=== PATIENT | female | born 1950 | race American Indian/Alaskan Native ===

== ENCOUNTER 2019-11-21 | Inpatient (IN) | payer MEDICARE | END 2019-11-28 17:39 | DRG 689 | PROVIDERS: ADMIT Internal Medicine | DX: N39.0 Urinary tract infection, site not specified (principal); N17.0 Acute kidney failure with tubular necrosis; E66.2 Morbid (severe) obesity with alveolar hypoventilation; Z68.43 Body mass index [BMI] 50.0-59.9, adult; I12.9 Hypertensive chronic kidney disease with stage 1 through stage 4 chronic kidney disease, or unspecified chronic kidney disease; N18.9 Chronic kidney disease, unspecified; Z79.01 Long term (current) use of anticoagulants; Z96.649 Presence of unspecified artificial hip joint; Z82.49 Family history of ischemic heart disease and other diseases of the circulatory system; D64.9 Anemia, unspecified; I48.0 Paroxysmal atrial fibrillation ==

== ENCOUNTER 2020-01-11 15:30 | Emergency (ER) | payer MEDICARE ==
[2020-01-11 17:43] LABS: ABG Base Excess 3.7 mmol/L (-2.0-3.0); ABG HCO3 29.2 mmol/L (20.0-26.0); ABG Oxygen Saturation 99.3 % (95.0-99.0); ABG PCO2 49.8 mm Hg; ABG PH 7.386 pH Units (7.350-7.450); ABG PO2 204.8 mm Hg (80.0-90.0)
[2020-01-11 17:50] LABS: Basophils % (Auto) 0.7 % (0.0-1.8); Eosinophils # (Auto) 0.2 K/mm3 (0.0-0.4); Eosinophils % (Auto) 3.3 % (0.0-4.3); Hematocrit 28.8 % (30.3-42.9); Hemoglobin 9.1 gm/dl (10.1-14.3); Lymphocytes # (Auto) 1.5 K/mm3 (1.2-5.4); Lymphocytes % (Auto) 29.2 % (13.4-35.0); Mean Corpuscular HGB Conc 32 % (30-34); Mean Corpuscular Volume 84 fl (79-97); Monocytes # (Auto) 0.3 K/mm3 (0.0-0.8); Monocytes % (Auto) 5.1 % (0.0-7.3); Platelet Count 274 K/mm3 (140-440); Red Blood Count 3.43 M/mm3 (3.65-5.03)
[2020-01-11 17:52] LABS: Red Cell Distribution Width 21.3 % (13.2-15.2)
[2020-01-11 17:54] LABS: ABG Methemoglobin 0.4 % (0.0-1.5)
[2020-01-11 18:12] LABS: Alanine Aminotransferase 14 units/L (7-56); Albumin 3.3 g/dL (3.9-5); BUN/Creatinine Ratio 18; Blood Urea Nitrogen 38 mg/dL (7-17); Calcium 9.1 mg/dL (8.4-10.2); Hemolysis Index 0
[2020-01-11 18:17] LABS: Bilirubin,Direct < 0.2 mg/dL (0-0.2)
[2020-01-11 19:26] LABS: Amphetamine Screen,Urine PRESUMPTIVE NEGATIVE; Benzodiazepines Screen,Urine PRESUMPTIVE NEGATIVE; Cannabinoid Screen,Urine PRESUMPTIVE NEGATIVE; Cocaine Screen,Urine PRESUMPTIVE NEGATIVE; Methadone Screen,Urine PRESUMPTIVE NEGATIVE; Opiate Screen,Urine PRESUMPTIVE NEGATIVE
[2020-01-11 19:27] LABS: Bacteria,Urine 1+ /HPF (Negative); RBC,Urine < 1.0 /HPF (0.0-6.0); WBC,Urine < 1.0 /HPF (0.0-6.0)
[2020-01-11 19:38] LABS: INR 3.21 (0.87-1.13)
[2020-01-11 19:44] LABS: Bilirubin,Urine NEG (Negative); Blood,Urine NEG (Negative); Color,Urine Yellow (Yellow); Protein,Urine <15 mg/dL mg/dL (Negative); Urobilinogen,Urine < 2.0 mg/dL (<2.0)
[2020-01-14 14:50] LABS: INR 2.66 (0.87-1.13)
[2020-01-15 07:56] LABS: INR 2.69 (0.87-1.13)
[2020-01-15 16:16] VITALS: BP 159/86
== END 2020-01-15 17:01 | disposition home or self-care (01) ==
LOC: ED 15:30
DX: I48.20 Chronic atrial fibrillation, unspecified (principal); Z79.01 Long term (current) use of anticoagulants; E66.2 Morbid (severe) obesity with alveolar hypoventilation; Z68.43 Body mass index [BMI] 50.0-59.9, adult; I11.0 Hypertensive heart disease with heart failure; I50.9 Heart failure, unspecified; M13.88 Other specified arthritis, other site; Z79.899 Other long term (current) drug therapy
CPT/HCPCS: 36415; 71045; 80048; 80076; 80307; 81001; 82140; 82803; 83735; 83880; 85025; 85610; 85730; 99284; A9270

== ENCOUNTER 2020-02-14 18:45 | Inpatient (IN) | payer MEDICARE ==
[2020-02-14] MEDS ORDERED: ASPIRIN 325 MG TAB PO ONE (20:03)
--- NOTE | 2020-02-14 20:24 | Emergency Department Report ---
ED Chest Pain HPI - General Chief Complaint: Chest Pain Stated Complaint: CHEST PAIN Time Seen by Provider: 02/14/20 20:07 Source: EMS Mode of arrival: Stretcher Limitations: No Limitations - History of Present Illness Initial Comments: This is a 69-year-old female who presents to the emergency department via EMS from home with a complaint of some midsternal chest pressure and shortness of breath that started this evening. She also reports a nonproductive cough. No fever, edema, nausea, vomiting, diaphoresis. The patient has a history of paroxysmal atrial fibrillation and appears to be in atrial fibrillation with RVR. She also has a past medical history of hypertension and CHF. She did not take anything for symptoms prior to presentation today. Both her tow motor driver, Dr. Arguello, and her primary care physician provider, Dr. Desir, are through [place]. No recent travel or sick contacts at home. The patient is currently on Coumadin for anticoagulation. Severity scale (0 -10): 8 - Related Data Home Medications Medication Instructions Recorded Confirmed Last Taken ISOSORBIDE MONOnitrate [Imdur ER] 10 mg PO BID 11/21/19 01/11/20 12/07/19 22:00 Nitroglycerin [Nitrostat] 0.4 mg SL Q5M PRN 11/21/19 01/11/20 Unknown Warfarin [Coumadin] 7.5 mg PO QDAY 11/22/19 01/11/20 12/07/19 Amiodarone [Cordarone 200 MG TAB] 200 mg PO QDAY 12/02/19 01/11/20 12/07/19 10:00 AtorvaSTATin [Lipitor] 40 mg PO QHS 12/02/19 01/11/20 12/07/19 22:00 Cyanocobalamin (Vitamin B-12) 1,000 mcg PO QDAY 12/02/19 01/11/20 12/07/19 10:00 [Vitamin B-12] HYDROcodone/ACETAMINOPHEN [[place] 1 each PO Q8H 12/02/19 01/11/20 Unknown 5/325 Tablet] Aspirin [Aspirin BABY CHEW TAB] 81 mg PO QDAY 12/18/19 01/11/20 12/07/19 Previous Rx's Medication Instructions Recorded Last Taken Type Lidocaine Topical 5% [Xylocaine 1 applic TP DAILY #1 tube 11/27/19 12/07/19 Rx Topical 5%] Furosemide [Lasix TAB] 40 mg PO QDAY #30 tablet 12/07/19 12/07/19 10:00 Rx dilTIAZem [Cardizem] 60 mg PO Q8HR #90 tablet 01/08/20 Unknown Rx Allergies Allergy/AdvReac Type Severity Reaction Status Date / Time No Known Allergies Allergy Unverified 08/09/13 15:10 Heart Score - HEART Score History: Moderately suspicious EKG: Non-specific Age: > 65 Risk factors: > 3 risk factors or hx of atherosclerotic disease Troponin: < normal limit HEART Score: 6 - Critical Actions Critical Actions: 4-6 pts:12-16.6% risk of adverse cardiac event. Should be admitted ED Review of Systems ROS: Stated complaint: CHEST PAIN Other details as noted in HPI Comment: All other systems reviewed and negative Constitutional: denies: chills, fever Eyes: denies: eye pain, vision change ENT: denies: ear pain, throat pain Respiratory: cough, shortness of breath Cardiovascular: chest pain. denies: palpitations Gastrointestinal: denies: abdominal pain, vomiting Genitourinary: denies: dysuria, discharge Musculoskeletal: denies: back pain, arthralgia Skin: denies: rash, lesions Neurological: denies: headache, weakness ED Past Medical Hx - Past Medical History Hx Hypertension: Yes Hx Congestive Heart Failure: Yes Hx Renal Disease: Yes Hx Arthritis: Yes Hx HIV: No Additional medical history: herniated disk, Bilateral hip replacement, A-fib - Surgical History Additional Surgical History: Hip replacement - Social History Smoking Status: Never Smoker Substance Use Type: None - Medications Home Medications: Home Medications Medication Instructions Recorded Confirmed Last Taken Type ISOSORBIDE MONOnitrate [Imdur ER] 10 mg PO BID 11/21/19 01/11/20 12/07/19 22:00 History Nitroglycerin [Nitrostat] 0.4 mg SL Q5M PRN 11/21/19 01/11/20 Unknown History Warfarin [Coumadin] 7.5 mg PO QDAY 11/22/19 01/11/20 12/07/19 History Lidocaine Topical 5% [Xylocaine 1 applic TP DAILY #1 tube 11/27/19 01/11/20 12/07/19 Rx Topical 5%] Amiodarone [Cordarone 200 MG TAB] 200 mg PO QDAY 12/02/19 01/11/20 12/07/19 10:00 History AtorvaSTATin [Lipitor] 40 mg PO QHS 12/02/19 01/11/20 12/07/19 22:00 History Cyanocobalamin (Vitamin B-12) 1,000 mcg PO QDAY 12/02/19 01/11/20 12/07/19 10:00 History [Vitamin B-12] HYDROcodone/ACETAMINOPHEN [[place] 1 each PO Q8H 12/02/19 01/11/20 Unknown History 5/325 Tablet] Furosemide [Lasix TAB] 40 mg PO QDAY #30 tablet 12/07/19 01/11/20 12/07/19 10:00 Rx Aspirin [Aspirin BABY CHEW TAB] 81 mg PO QDAY 12/18/19 01/11/20 12/07/19 History dilTIAZem [Cardizem] 60 mg PO Q8HR #90 tablet 01/08/20 01/11/20 Unknown Rx ED Physical Exam - General Limitations: No Limitations - Other Other exam information: GENERAL: The patient is well-developed well-nourished. HENT: Normocephalic. Atraumatic. Patient has moist mucous membranes. EYES: Extraocular motions are intact. NECK: Supple. Trachea is midline. CHEST/LUNGS: Clear to auscultation. There is no respiratory distress noted. HEART/CARDIOVASCULAR: Irregular with mild to moderate tachycardia. ABDOMEN: Abdomen is soft, nontender. Patient has normal bowel sounds. Morbidly obese habitus. SKIN: Skin is warm and dry. NEURO: The patient is awake, alert, and oriented. The patient is cooperative. The patient has no focal neurologic deficits. Normal speech. MUSCULOSKELETAL: There is no tenderness or deformity. There is no evidence of acute injury. ED Course Vital Signs 02/14/20 02/14/20 02/14/20 19:39 19:45 19:59 Temperature 97.9 F Pulse Rate 96 H 116 H 122 H Respiratory 13 20 20 Rate Blood Pressure Blood Pressure 97/74 [Left] O2 Sat by Pulse 96 Oximetry 02/14/20 02/14/20 02/14/20 20:00 20:15 20:30 Temperature 97.9 F Pulse Rate 117 H 119 H 112 H Respiratory 22 17 21 Rate Blood Pressure 89/51 89/51 102/56 Blood Pressure [Left] O2 Sat by Pulse 97 94 95 Oximetry 02/14/20 02/14/20 02/14/20 20:45 21:00 21:15 Temperature Pulse Rate 110 H 124 H 129 H Respiratory 21 22 24 Rate Blood Pressure 102/56 98/71 98/71 Blood Pressure [Left] O2 Sat by Pulse 94 98 95 Oximetry 02/14/20 02/14/20 21:31 21:45 Temperature Pulse Rate 126 H 113 H Respiratory 18 34 H Rate Blood Pressure 99/75 99/75 Blood Pressure [Left] O2 Sat by Pulse 97 96 Oximetry TRACE score - Trace Score Age > 65: (1) Yes Aspirin use within the Past 7 Days: (1) Yes 3 or more CAD Risk Factors: (1) Yes 2 or more Angina events in past 24 hrs: (1) Yes Known CAD with more than 50% Stenosis: (0) No Elevated Cardiac Markers: (0) No ST Deviation Greater than 0.5mm: (0) No TRACE Score: 4 ED Medical Decision Making - Lab Data Result diagrams: 02/14/20 20:06 02/14/20 20:06 - EKG Data -: EKG Interpreted by Me - EKG Data When compared to previous EKG there are: no significant change (01/11/20) Interpretation: unchanged when compared t (01/11/20), other (Atrial fibrillation with a rate of 116 bpm, normal axis, PVCs) - Radiology Data Radiology results: image reviewed interpreted by me: Chest x-ray shows cardiomegaly but no pneumonia, pneumothorax, pleural effusions, or any other acute process. - Medical Decision Making This patient presents to the emergency department with a complaint of some chest pain and shortness of breath and was found to be in atrial fibrillation with RVR. She does have a history of paroxysmal A. fib. EKG shows this atrial fibrillation without signs of ST elevation SD. Chest x-ray does not show any acute process. Patient's labs show anemia, acute on chronic renal failure, elevated troponins. Patient's last GFR was about 28 and it is currently at 8. Patient was given a dose of Cardizem which did help with rate control. Patient will be admitted to the hospital for further evaluation and treatment and was accepted for admission by the hospitalist, Dr. Mcdonough. Critical Care Time: Yes Critical care time in (mins) excluding proc time.: 35 Critical care attestation.: If time is entered above; I have spent that time in minutes in the direct care of this critically ill patient, excluding procedure time. Due to the immediate potential for life-threatening deterioration due to underlying cardiac and renal conditions, I spent 35 minutes of critical care time with the patient. Critical Care Time: 35 minutes ED Disposition Clinical Impression: Acute chest pain, Atrial fibrillation with RVR, Subtherapeutic international normalized ratio (INR) Acute on chronic renal failure Qualifiers: Acute renal failure type: unspecified Chronic kidney disease stage: unspecified stage Qualified Code(s): N17.9 - Acute kidney failure, unspecified; N18.9 - Chronic kidney disease, unspecified Disposition: 09 OP ADMIT IP TO THIS HOSP Is pt being admited?: Yes Condition: Serious Time of Disposition: 21:30
--- NOTE | 2020-02-14 20:27 | XRay Report ---
CHEST 1 VIEW 02/14/2020 8:05 PM INDICATION / CLINICAL INFORMATION: Chest Pain. COMPARISON: 01/11/2020 FINDINGS: SUPPORT DEVICES: None. HEART / MEDIASTINUM: Stable moderate cardiomegaly. LUNGS / PLEURA: No significant pulmonary or pleural abnormality. No pneumothorax. ADDITIONAL FINDINGS: No significant additional findings. IMPRESSION: 1. No acute findings. Stable moderate cardiomegaly. Signer Name: Daniele Pacheco MD Signed: 02/14/2020 8:23 PM Workstation Name: [id number]
[2020-02-14 20:44] LABS: Calcium 8.9 mg/dL (8.4-10.2)
[2020-02-14 20:54] LABS: Basophils # (Auto) 0.1 K/mm3 (0.0-0.1); Basophils % (Auto) 0.8 % (0.0-1.8); Eosinophils # (Auto) 0.1 K/mm3 (0.0-0.4); Eosinophils % (Auto) 0.8 % (0.0-4.3); Hematocrit 28.4 % (30.3-42.9); Hemoglobin 8.7 gm/dl (10.1-14.3); Lymphocytes % (Auto) 26.2 % (13.4-35.0); Mean Corpuscular HGB Conc 31 % (30-34); Mean Corpuscular Volume 82 fl (79-97); Monocytes # (Auto) 0.4 K/mm3 (0.0-0.8); Monocytes % (Auto) 5.2 % (0.0-7.3); Platelet Count 327 K/mm3 (140-440); Red Blood Count 3.45 M/mm3 (3.65-5.03); Red Cell Distribution Width 19.8 % (13.2-15.2)
[2020-02-14] MEDS ORDERED: dilTIAZem 25 MG/5 ML INJ IV ONE (21:17)
[2020-02-14] MEDS ORDERED: SODIUM CHLORIDE 0.9% 250ML 250 ML IV ONE (21:17)
[2020-02-14 21:28] LABS: INR 1.43 (0.87-1.13)
[2020-02-14 21:42] LABS: Chol/HDL Ratio 3.57 %
[2020-02-14] MEDS ORDERED: MORPHINE 2 MG/1 ML INJ IV PRN (22:10)
[2020-02-14] MEDS ORDERED: ONDANSETRON 4 MG/2 ML INJ IV PRN (22:10)
[2020-02-14] MEDS ORDERED: ACETAMINOPHEN 325 MG TAB PO PRN (22:10)
[2020-02-14] MEDS ORDERED: MAGNESIUM HYDROXIDE (MOM) ORAL LIQD UDC PO PRN (22:10)
[2020-02-14] MEDS ORDERED: NITROGLYCERIN 0.4 MG TAB SUBL SL PRN (22:10)
--- NOTE | 2020-02-14 22:21 | History and Physical Report ---
History of Present Illness Date of examination: 02/14/20 Date of admission: 02/14/20 21:31 Chief complaint: Chest pain History of present illness: 69-year-old female with known history of atrial fibrillation, hypertension, CHF and chronic kidney disease. Presenting to the emergency room today complaining of midsternal chest pressure and shortness of breath. Symptoms were said to have started earlier this evening. She has had some mild cough which is nonproductive. There is no no relieving or exacerbating factor for chest pain. Has been no radiation. She denies any fever or chills, no nausea vomiting, no diarrhea, no headache or dizziness. She denies any recent travel and no sick contacts. Upon arrival in the emergency room patient was found to be in atrial fibrillation with RVR. She had a dose of IV Cardizem with some improvement in heart rate. Past History Past Medical History: atrial fib, arthritis, heart failure, other (Chronic kidney disease, obesity) Past Surgical History: Other (History of bilateral hip replacement) Social history: no significant social history Family history: no significant family history Medications and Allergies Allergies Allergy/AdvReac Type Severity Reaction Status Date / Time No Known Allergies Allergy Unverified 08/09/13 15:10 Home Medications Medication Instructions Recorded Confirmed Last Taken Type ISOSORBIDE MONOnitrate [Imdur ER] 10 mg PO BID 11/21/19 01/11/20 12/07/19 22:00 History Nitroglycerin [Nitrostat] 0.4 mg SL Q5M PRN 11/21/19 01/11/20 Unknown History Warfarin [Coumadin] 7.5 mg PO QDAY 11/22/19 01/11/20 12/07/19 History Lidocaine Topical 5% [Xylocaine 1 applic TP DAILY #1 tube 11/27/19 01/11/20 12/07/19 Rx Topical 5%] Amiodarone [Cordarone 200 MG TAB] 200 mg PO QDAY 12/02/19 01/11/20 12/07/19 10:00 History AtorvaSTATin [Lipitor] 40 mg PO QHS 12/02/19 01/11/20 12/07/19 22:00 History Cyanocobalamin (Vitamin B-12) 1,000 mcg PO QDAY 12/02/19 01/11/20 12/07/19 10:00 History [Vitamin B-12] HYDROcodone/ACETAMINOPHEN [[place] 1 each PO Q8H 12/02/19 01/11/20 Unknown History 5/325 Tablet] Furosemide [Lasix TAB] 40 mg PO QDAY #30 tablet 12/07/19 01/11/20 12/07/19 10:00 Rx Aspirin [Aspirin BABY CHEW TAB] 81 mg PO QDAY 12/18/19 01/11/20 12/07/19 History dilTIAZem [Cardizem] 60 mg PO Q8HR #90 tablet 01/08/20 01/11/20 Unknown Rx Review of Systems Constitutional: no fever, no chills Ears, nose, mouth and throat: no nasal congestion, no sore throat Cardiovascular: no chest pain, no palpitations Respiratory: no cough, no shortness of breath Gastrointestinal: no abdominal pain, no nausea, no vomiting, no diarrhea Genitourinary Female: no pelvic pain, no flank pain, no dysuria Musculoskeletal: no neck pain, no low back pain Integumentary: no rash, no pruritis Neurological: no headaches, no confusion Psychiatric: no anxiety, no depression Exam - Constitutional Vitals: Temp Pulse Resp BP Pulse Ox 97.9 F 113 H 34 H 99/75 96 02/14/20 20:00 02/14/20 21:45 02/14/20 21:45 02/14/20 21:45 02/14/20 21:45 General appearance: Present: no acute distress, well-nourished, obese - EENT Eyes: Present: PERRL, EOM intact ENT: hearing intact, clear oral mucosa, dentition normal - Neck Neck: Present: supple, normal ROM - Respiratory Respiratory effort: normal Respiratory: bilateral: CTA - Cardiovascular Rhythm: irregularly irregular Heart Sounds: Present: S1 & S2, systolic murmur. Absent: gallop, diastolic murmur, rub - Extremities Extremities: no ischemia, pulses intact, pulses symmetrical, Full ROM Extremity abnormal: edema (Trace bilateral ankle edema), other (Dry scaly hyperpigmented skin over bilateral lower extremity) Peripheral Pulses: within normal limits - Abdominal General gastrointestinal: Present: soft, non-tender, non-distended, normal bowel sounds. Absent: mass - Integumentary Integumentary: Present: clear, warm, dry. Absent: jaundice, rash - Musculoskeletal Musculoskeletal: strength equal bilaterally - Psychiatric Psychiatric: appropriate mood/affect, intact judgment & insight, memory intact, cooperative - Neurologic Neurologic: CNII-XII intact, no focal deficits, moves all extremities HEART Score - HEART Score Troponin: Troponin T 0.072 ng/mL (0.00-0.029) H 02/14/20 20:06 Results - Labs CBC & Chem 7: 02/14/20 20:06 02/14/20 20:06 Labs: Abnormal lab results 02/14/20 02/14/20 02/14/20 Range/Units 20:06 20:06 21:03 RBC 3.45 L (3.65-5.03) M/mm3 Hgb 8.7 L (10.1-14.3) gm/dl Hct 28.4 L (30.3-42.9) % MCH 25 L (28-32) pg RDW 19.8 H (13.2-15.2) % PT 17.1 H (12.2-14.9) Sec. INR 1.43 H (0.87-1.13) Chloride 94.3 L (98-107) mmol/L BUN 125 H (7-17) mg/dL Creatinine 6.3 H (0.7-1.2) mg/dL Troponin T 0.072 H (0.00-0.029) ng/mL HDL Cholesterol 33 L (40-59) mg/dL Assessment and Plan - Patient Problems (1) Acute chest pain Current Visit: Yes Status: Acute Plan to address problem: Patient admitted and placed on telemetry. Will check serial cardiac enzymes. Patient placed on aspirin, sublingual nitroglycerin and IV morphine as needed for chest pain. Patient will be scheduled for stress test. We will place a consult to cardiology for evaluation and further recommendation. (2) Atrial fibrillation with RVR Current Visit: Yes Status: Acute Plan to address problem: Patient had a dose of Cardizem upon arrival in the emergency room. Rate is better controlled. Patient has known history of atrial fibrillation and has been on anticoagulation. Patient follows up with a architectural drafting instructor at [facility]. (3) Acute on chronic renal failure Current Visit: Yes Status: Acute Qualifiers: Acute renal failure type: unspecified Chronic kidney disease stage: unspecified stage Qualified Code(s): N17.9 - Acute kidney failure, unspecified; N18.9 - Chronic kidney disease, unspecified Plan to address problem: Will monitor BUN and creatinine. (4) Subtherapeutic international normalized ratio (INR) Current Visit: Yes Status: Acute Plan to address problem: We will monitor PT/INR. Will adjust Coumadin as needed. (5) DVT prophylaxis Current Visit: No Status: Acute Plan to address problem: Patient currently on anticoagulation. INR is subtherapeutic. (6) Full code status Current Visit: Yes Status: Acute
[2020-02-15] MEDS ORDERED: REGADENOSON 0.4 MG/5 ML INJ IV ONE (08:47)
--- NOTE | 2020-02-15 08:51 | Consultation ---
History of Present Illness Consult date: 02/15/20 Requesting physician: LEVY MCCONNELL Consult reason: atrial fibrillation, chest pain History of present illness: Pt is a 69 y.o. female with a past medical hx of PAF (on Coumadin), CMP s/p ICD (EF resolved on echo 11/2019), chronic HFpEF, HTN, and morbid obesity. She is followed by Dr. Philly Lamb @ [facility]. Pt was recently admitted to [facility] with COVID-19 infection (discharged 01/11/2020). She presents now with complaints of SOB and intermittent midsternal, non-radiating chest pressure relieved by positional changes. Pt also endorses a mild non-productive cough. She denies diaphoresis, palpitations, dizziness, lightheadedness, syncope, headache, orthopnea/PND, edema, claudication, fever/chills, and N/V. Of note, pt was found to be in AF with RVR upon arrival. Rate improved with IV Cardizem 10mg x 1. Tele reviewed - pt in AF 110-130s this AM. Trop mildly elevated upon admission 0.092 -> 0.066. No acute ischemic changes on ECG. CXR reveals stable mod cardiomegaly; no acute findings. Echo 11/2019 reviewed - EF 55-60%; mild-mod LVH; mod MR. Past History Past Medical History: atrial fib, arthritis, heart failure, hypertension, other (CMP s/p ICD) Past Surgical History: Other (hx of galina hip replacement) Social history: denies: smoking, alcohol abuse Family history: no significant family history Medications and Allergies Allergies Allergy/AdvReac Type Severity Reaction Status Date / Time No Known Allergies Allergy Unverified 08/09/13 15:10 Home Medications Medication Instructions Recorded Confirmed Last Taken Type ISOSORBIDE MONOnitrate [Imdur ER] 10 mg PO BID 11/21/19 01/11/20 12/07/19 22:00 History Nitroglycerin [Nitrostat] 0.4 mg SL Q5M PRN 11/21/19 01/11/20 Unknown History Warfarin [Coumadin] 7.5 mg PO QDAY 11/22/19 01/11/20 12/07/19 History Lidocaine Topical 5% [Xylocaine 1 applic TP DAILY #1 tube 11/27/19 01/11/20 12/07/19 Rx Topical 5%] Amiodarone [Cordarone 200 MG TAB] 200 mg PO QDAY 12/02/19 01/11/20 12/07/19 10:00 History AtorvaSTATin [Lipitor] 40 mg PO QHS 12/02/19 01/11/20 12/07/19 22:00 History Cyanocobalamin (Vitamin B-12) 1,000 mcg PO QDAY 12/02/19 01/11/20 12/07/19 10:00 History [Vitamin B-12] HYDROcodone/ACETAMINOPHEN [[place] 1 each PO Q8H 12/02/19 01/11/20 Unknown History 5/325 Tablet] Furosemide [Lasix TAB] 40 mg PO QDAY #30 tablet 12/07/19 01/11/20 12/07/19 10:00 Rx Aspirin [Aspirin BABY CHEW TAB] 81 mg PO QDAY 12/18/19 01/11/20 12/07/19 History dilTIAZem [Cardizem] 60 mg PO Q8HR #90 tablet 01/08/20 01/11/20 Unknown Rx Active Meds: Active Medications Acetaminophen (Tylenol) 650 mg PO Q4H PRN PRN Reason: Pain MILD(1-3)/Fever >100.5/ESQUIVEL Aspirin (Ecotrin) 325 mg PO QDAY BHAVANI Magnesium Hydroxide (Milk Of Magnesia) 30 ml PO Q4H PRN PRN Reason: Constipation Morphine Sulfate (Morphine) 2 mg IV Q5MIN PRN PRN Reason: Chest Pain unrelieved by NTG Nitroglycerin (Nitrostat) 0.4 mg SL Q5M PRN PRN Reason: Chest Pain Ondansetron HCl (Zofran) 4 mg IV Q8H PRN PRN Reason: Nausea And Vomiting Sodium Chloride (Sodium Chloride Flush Syringe 10 Ml) 10 ml IV BID BHAVANI Sodium Chloride (Sodium Chloride Flush Syringe 10 Ml) 10 ml IV PRN PRN PRN Reason: LINE FLUSH Review of Systems Constitutional: no weight loss, no weight gain, no fever, no chills, no sweats, no fatigue, no weakness Ears, nose, mouth and throat: no nasal congestion, no nasal discharge, no dysphagia, no sore throat Cardiovascular: chest pain, shortness of breath, dyspnea on exertion, no orthopnea, no palpitations, no edema, no syncope, no lightheadedness, no paroxysmal nocturnal dyspnea, no claudication Respiratory: cough, shortness of breath, dyspnea on exertion, no wheezing Gastrointestinal: no abdominal pain, no nausea, no vomiting, no diarrhea, no constipation Genitourinary Female: no pelvic pain, no flank pain, no dysuria Musculoskeletal: no neck stiffness, no neck pain, no muscle weakness, no muscle cramps Integumentary: no rash, no wounds Neurological: no head injury, no paralysis, no parathesias, no numbness, no tingling, no seizures, no syncope, no vertigo, no headaches, no change in mentation Endocrine: no cold intolerance, no heat intolerance, no polydipsia, no polyuria Hematologic/Lymphatic: no easy bruising, no easy bleeding Allergic/Immunologic: no urticaria, no angioedema Physical Examination Vital Signs - 12hr 02/15/20 02/15/20 02/15/20 03:53 08:12 10:47 Temperature 97.5 F L 98.6 F Pulse Rate 100 H 115 H 115 H Respiratory 20 20 Rate Blood Pressure 93/68 111/52 111/55 O2 Sat by Pulse 94 96 Oximetry 02/15/20 11:26 Temperature 97.7 F Pulse Rate 73 Respiratory 18 Rate Blood Pressure 108/73 O2 Sat by Pulse 99 Oximetry General appearance: no acute distress HEENT: Positive: EOMI, Normocephaly, Mucus Membranes Moist Neck: Positive: neck supple, trachea midline. Negative: JVD/HJR Cardiac: Positive: irregularly irregular, S1/S2. Negative: Audible Murmur Lungs: Positive: clear to auscultation (bilaterally) Neuro: Positive: Grossly Intact Abdomen: Positive: Soft, Active Bowel Sounds. Negative: Tender, Distended Skin: Negative: Rash, Wound Musculoskeletal: No Fluid Collection, No Pain, Normal Range of Motion Extremities: Present: upper extr. pulses, lower extr. pulses. Absent: edema Results 02/15/20 07:45 02/15/20 07:45 Coagulation 02/14/20 Range/Units 21:03 PT 17.1 H (12.2-14.9) Sec. INR 1.43 H (0.87-1.13) Lipids 02/14/20 Range/Units 20:06 Triglycerides 82 (2-149) mg/dL Cholesterol 118 (50-199) mg/dL HDL Cholesterol 33 L (40-59) mg/dL Cholesterol/HDL Ratio 3.57 % CBC 02/14/20 Range/Units 20:06 WBC 7.5 (4.5-11.0) K/mm3 RBC 3.45 L (3.65-5.03) M/mm3 Hgb 8.7 L (10.1-14.3) gm/dl Hct 28.4 L (30.3-42.9) % Plt Count 327 (140-440) K/mm3 Lymph # 2.0 (1.2-5.4) K/mm3 [place] # 0.4 (0.0-0.8) K/mm3 Eos # 0.1 (0.0-0.4) K/mm3 Baso # 0.1 (0.0-0.1) K/mm3 Comprehensive Metabolic Panel 02/14/20 Range/Units 20:06 Sodium 137 (137-145) mmol/L Potassium 4.1 (3.6-5.0) mmol/L Chloride 94.3 L (98-107) mmol/L Carbon Dioxide 24 (22-30) mmol/L BUN 125 H (7-17) mg/dL Creatinine 6.3 H (0.7-1.2) mg/dL Glucose 99 (65-100) mg/dL Calcium 8.9 (8.4-10.2) mg/dL - Imaging and Cardiology Echo: report reviewed (11/2019: EF 55-60%; mild-mod LVH; mod MR) EKG: report reviewed, image reviewed - EKG Interpretation EKG: no acute changes EKG interpretations - Telemetry EKG Rhythm: Atrial Fibrillation - EKG Supraventricular dysrhythmia: atrial fibrillation Ventricular dysrhythmias: ventricular premature com Assessment and Plan Unable to perform stress test today due to AF w/RVR. Plan for Lexiscan MPI stress test in AM. NPO after midnight. Inc PO Cardizem to 90mg q8h. Hold other home antihypertensives at this time given borderline BPs. Coumadin held in the setting of anemia. Recommend Nephro input regarding diuretics given renal fxn. Pt is on PO Torsemide 100mg qDay at home. Pt seen in conjunction with Dr. Giordano, who agrees with the assessment and plan of care. - Patient Problems (1) Atypical chest pain Current Visit: Yes Status: Acute (2) NSTEMI (non-ST elevated myocardial infarction) Current Visit: Yes Status: Acute Plan to address problem: Type 2 (3) Paroxysmal atrial fibrillation with RVR Current Visit: Yes Status: Acute (4) Subtherapeutic international normalized ratio (INR) Current Visit: Yes Status: Acute (5) Acute on chronic renal failure Current Visit: Yes Status: Acute Qualifiers: Qualified Code(s): N17.9 - Acute kidney failure, unspecified; N18.9 - Chronic kidney disease, unspecified (6) Anemia Current Visit: Yes Status: Acute (7) Chronic heart failure with preserved ejection fraction (HFpEF) Current Visit: Yes Status: Chronic (8) Hx of cardiomyopathy Current Visit: Yes Status: Resolved (9) ICD (implantable cardioverter-defibrillator) in place Current Visit: Yes Status: Chronic (10) HTN (hypertension) Current Visit: Yes Status: Chronic Qualifiers: Hypertension type: essential hypertension Qualified Code(s): I10 - Essential (primary) hypertension (11) Morbid obesity Current Visit: Yes Status: Chronic
[2020-02-15 08:55] LABS: Basophils % (Auto) 0.6 % (0.0-1.8); Eosinophils # (Auto) 0.1 K/mm3 (0.0-0.4); Eosinophils % (Auto) 1.1 % (0.0-4.3); Hematocrit 26.6 % (30.3-42.9); Hemoglobin 8.2 gm/dl (10.1-14.3); Lymphocytes # (Auto) 2.1 K/mm3 (1.2-5.4); Lymphocytes % (Auto) 25.7 % (13.4-35.0); Mean Corpuscular HGB Conc 31 % (30-34); Mean Corpuscular Volume 80 fl (79-97); Monocytes # (Auto) 0.3 K/mm3 (0.0-0.8); Monocytes % (Auto) 3.7 % (0.0-7.3); Platelet Count 342 K/mm3 (140-440); Red Blood Count 3.33 M/mm3 (3.65-5.03); Red Cell Distribution Width 19.8 % (13.2-15.2)
[2020-02-15 09:19] LABS: INR 1.5 (0.87-1.13)
[2020-02-15 09:27] LABS: Calcium 9.3 mg/dL (8.4-10.2)
[2020-02-15] MEDS: ASPIRIN EC 325 MG TAB PO SCH (10:47)
--- NOTE | 2020-02-15 20:02 | Progress Note ---
Assessment and Plan Day #2 Symptomatically better Admitted for atrial fibrillation with RVR and chest pain (1) Acute chest pain Current Visit: Yes Status: Acute Plan to address problem: Stress test could not be done (2) Atrial fibrillation with RVR Current Visit: Yes Status: Acute Plan to address problem: Patient had a dose of Cardizem upon arrival in the emergency room. Rate is better controlled. Patient has known history of atrial fibrillation and has been on an ticoagulation. Patient follows up with a manager customs at [facility]. Cardiology consult Rate better controlled (3) Acute on chronic renal failure Current Visit: Yes Status: Acute Qualifiers: Acute renal failure type: unspecified Chronic kidney disease stage: unspecified stage Qualified Code(s): N17.9 - Acute kidney failure, unspecified; N18.9 - Chronic kidney disease, unspecified Plan to address problem: Will monitor BUN and creatinine. BUN/creatinine high May need dialysis (4) Subtherapeutic international normalized ratio (INR) Current Visit: Yes Status: Acute Plan to address problem: We will monitor PT/INR. Will adjust Coumadin as needed. (5) DVT prophylaxis Current Visit: No Status: Acute Plan to address problem: Patient currently on anticoagulation. INR is subtherapeutic. (6) Full code status Current Visit: Yes Status: Acute Subjective Date of service: 02/15/20 Principal diagnosis: Afib with RVR, CKD/end-stage renal disease Interval history: 69-year-old female with known history of atrial fibrillation, hypertension, CHF and chronic kidney disease. Presenting to the emergency room today complaining of midsternal chest pressure and shortness of breath. Symptoms were said to have started earlier this evening. She has had some mild cough which is nonproductive. There is no no relieving or exacerbating factor for chest pain. Has been no radiation. She denies any fever or chills, no nausea vomiting, no diarrhea, no headache or dizziness. She denies any recent travel and no sick contacts. Upon arrival in the emergency room patient was found to be in atrial fibrillation with RVR. She had a dose of IV Cardizem with some improvement in heart rate. Not on dialysis Objective - Constitutional Vitals: Vital Signs - 12hr 02/15/20 02/15/20 02/15/20 08:12 10:47 11:26 Temperature 98.6 F 97.7 F Pulse Rate 115 H 115 H 73 Respiratory 20 18 Rate Blood Pressure 111/52 111/55 108/73 O2 Sat by Pulse 96 99 Oximetry 02/15/20 02/15/20 16:00 17:37 Temperature 98.1 F Pulse Rate 66 90 Respiratory 20 Rate Blood Pressure 120/85 120/69 O2 Sat by Pulse 95 Oximetry General appearance: Present: no acute distress, well-nourished - EENT Eyes: PERRL, EOM intact ENT: hearing intact, clear oral mucosa Ears: bilateral: normal - Neck Neck: supple, normal ROM - Respiratory Respiratory effort: normal Respiratory: bilateral: CTA - Breasts Breasts: normal - Cardiovascular Heart rate: 100 Rhythm: irregularly irregular Heart Sounds: Present: S1 & S2. Absent: gallop, rub Extremities: pulses intact, No edema, normal color, Full ROM - Gastrointestinal General gastrointestinal: Present: soft, non-tender, non-distended, normal bowel sounds - Genitourinary Female genitourinary: normal - Integumentary Integumentary: clear, warm, dry - Musculoskeletal Musculoskeletal: 1, strength equal bilaterally - Neurologic Neurologic: moves all extremities - Psychiatric Psychiatric: memory intact, appropriate mood/affect, intact judgment & insight - Labs CBC & Chem 7: 02/15/20 07:45 02/15/20 07:45 Labs: Abnormal lab results 02/14/20 02/14/20 02/14/20 Range/Units 20:06 20:06 21:03 RBC 3.45 L (3.65-5.03) M/mm3 Hgb 8.7 L (10.1-14.3) gm/dl Hct 28.4 L (30.3-42.9) % MCH 25 L (28-32) pg RDW 19.8 H (13.2-15.2) % PT 17.1 H (12.2-14.9) Sec. INR 1.43 H (0.87-1.13) Chloride 94.3 L (98-107) mmol/L BUN 125 H (7-17) mg/dL Creatinine 6.3 H (0.7-1.2) mg/dL Troponin T 0.072 H (0.00-0.029) ng/mL HDL Cholesterol 33 L (40-59) mg/dL 07/04/2702/15/20 02/15/20 Range/Units 22:46 07:45 07:45 RBC 3.33 L (3.65-5.03) M/mm3 Hgb 8.2 L (10.1-14.3) gm/dl Hct 26.6 L (30.3-42.9) % MCH 25 L (28-32) pg RDW 19.8 H (13.2-15.2) % PT 17.8 H (12.2-14.9) Sec. INR 1.50 H (0.87-1.13) Chloride (98-107) mmol/L BUN (7-17) mg/dL Creatinine (0.7-1.2) mg/dL Troponin T 0.092 H (0.00-0.029) ng/mL HDL Cholesterol (40-59) mg/dL 02/15/20 02/15/20 Range/Units 07:45 07:45 RBC (3.65-5.03) M/mm3 Hgb (10.1-14.3) gm/dl Hct (30.3-42.9) % MCH (28-32) pg RDW (13.2-15.2) % PT (12.2-14.9) Sec. INR (0.87-1.13) Chloride 96.5 L (98-107) mmol/L BUN 122 H (7-17) mg/dL Creatinine 6.3 H (0.7-1.2) mg/dL Troponin T 0.066 H D (0.00-0.029) ng/mL HDL Cholesterol (40-59) mg/dL HEART Score - HEART Score EKG: Non-specific Age: > 65 Risk factors: > 3 risk factors or hx of atherosclerotic disease Troponin: Troponin T 0.066 ng/mL (0.00-0.029) H D 02/15/20 07:45 Troponin: < normal limit - Critical Actions Critical Actions: 4-6 pts:12-16.6% risk of adverse cardiac event. Should be admitted
[2020-02-16] MEDS: ASPIRIN EC 325 MG TAB PO SCH (10:36)
--- NOTE | 2020-02-16 11:34 | Progress Note ---
Assessment and Plan Patient's atrial fibrillation is reasonably under control,continue present medical therapy. Considering elevated bun/creat,with patient being not able to lie down,would consider nephrology evaluation,?dialysis. Subjective Date of service: 02/16/20 Interval history: Patient was scheduled for iv Lexiscan MPI this AM,however could not lay down flat,getting restless and SOB,hence testing was not done. Objective Vital Signs Temp Pulse Resp BP Pulse Ox 02/16/20 07:44 97.6 F 64 20 103/50 96 02/16/20 05:45 97.6 F 101 H 20 119/74 95 02/16/20 05:13 106 H 02/16/20 00:35 97.9 F 78 20 115/68 98 02/16/20 00:00 77 02/15/20 22:00 72 02/15/20 20:18 97.3 F L 44 L 20 96/70 98 02/15/20 17:37 90 120/69 02/15/20 16:00 98.1 F 66 20 120/85 95 - Physical Examination General: Other (obese) HEENT: Positive: EOMI, Normocephaly, Mucus Membranes Moist Neck: Positive: neck supple, trachea midline. Negative: JVD/HJR Cardiac: Positive: irregularly irregular Lungs: Positive: Decreased Breath Sounds Neuro: Positive: Grossly Intact Abdomen: Positive: Soft, Active Bowel Sounds. Negative: Tender, Distended Skin: Negative: Rash, Wound Musculoskeletal: No Fluid Collection, No Pain, Normal Range of Motion Extremities: Present: upper extr. pulses, lower extr. pulses. Absent: edema, +1 Edema (chronic edema noted.) - Imaging and Cardiology EKG: report reviewed, image reviewed Echo: report reviewed (11/2019: EF 55-60%; mild-mod LVH; mod MR) - EKG Ventricular dysrhythmias: ventricular premature com
--- NOTE | 2020-02-16 18:52 | Progress Note ---
Assessment and Plan Day #2 Symptomatically better Admitted for atrial fibrillation with RVR and chest pain Day #3 Stress test could not be done because of patient not being able to lie still (1) Acute chest pain Current Visit: Yes Status: Acute Plan to address problem: Stress test could not be done (2) Atrial fibrillation with RVR Current Visit: Yes Status: Acute Plan to address problem: Patient had a dose of Cardizem upon arrival in the emergency room. Rate is b janna controlled. Patient has known history of atrial fibrillation and has been on anticoagulation. 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 Cardiology consult Rate better controlled (3) Acute on chronic renal failure Current Visit: Yes Status: Acute Qualifiers: Acute renal failure type: unspecified Chronic kidney disease stage: unspecified stage Qualified Code(s): N17.9 - Acute kidney failure, unspecified; N18.9 - Chronic kidney disease, unspecified Plan to address problem: Will monitor BUN and creatinine. BUN/creatinine high May need dialysis Nephrology consult initiated Patient apparently had dialysis in the past (4) Subtherapeutic international normalized ratio (INR) Current Visit: Yes Status: Acute Plan to address problem: We will monitor PT/INR. Will adjust Coumadin as needed. (5) DVT prophylaxis Current Visit: No Status: Acute Plan to address problem: Patient currently on anticoagulation. INR is subtherapeutic. (6) Full code status Current Visit: Yes Status: Acute Subjective Date of service: 02/16/20 Principal diagnosis: Afib with RVR, CKD/end-stage renal disease Interval history: 69-year-old female with known history of atrial fibrillation, hypertension, CHF and chronic kidney disease. Presenting to the emergency room today complaining of midsternal chest pressure and shortness of breath. Symptoms were said to hav e started earlier this evening. She has had some mild cough which is nonproductive. There is no no relieving or exacerbating factor for chest pain. Has been no radiation. She denies any fever or chills, no nausea vomiting, no diarrhea, no headache or dizziness. She denies any recent travel and no sick contacts. Upon arrival in the emergency room patient was found to be in atrial fibrillation with RVR. She had a dose of IV Cardizem with some improvement in heart rate. Not on dialysis A. fib with rate controlled Objective - Constitutional Vitals: Vital Signs - 12hr 07/11/20 07/11/20 07:44 12:02 Temperature 97.6 F Pulse Rate 64 88 Respiratory 20 18 Rate Blood Pressure 103/50 O2 Sat by Pulse 96 97 Oximetry General appearance: Present: no acute distress, well-nourished - EENT Eyes: PERRL, EOM intact ENT: hearing intact, clear oral mucosa Ears: bilateral: normal - Neck Neck: supple, normal ROM - Respiratory Respiratory effort: normal Respiratory: bilateral: CTA - Breasts Breasts: normal - Cardiovascular Heart rate: 78 Heart Sounds: Present: S1 & S2. Absent: gallop, rub Extremities: pulses intact, No edema, normal color, Full ROM - Gastrointestinal General gastrointestinal: Present: soft, non-tender, non-distended, normal bowel sounds - Genitourinary Female genitourinary: normal - Integumentary Integumentary: clear, warm, dry - Musculoskeletal Musculoskeletal: 1, strength equal bilaterally - Neurologic Neurologic: moves all extremities - Psychiatric Psychiatric: memory intact, appropriate mood/affect, intact judgment & insight - Labs CBC & Chem 7: 02/15/20 07:45 02/15/20 07:45 HEART Score - HEART Score EKG: Non-specific Age: > 65 Risk factors: > 3 risk factors or hx of atherosclerotic disease Troponin: Troponin T 0.066 ng/mL (0.00-0.029) H D 02/15/20 07:45 Troponin: < normal limit - Critical Actions Critical Actions: 4-6 pts:12-16.6% risk of adverse cardiac event. Should be admitted
[2020-02-16] MEDS ORDERED: SODIUM CHLORIDE 0.9% 1000 ML 1,000 ML IV SCH (19:00)
[2020-02-17 05:37] LABS: Basophils % (Auto) 0.6 % (0.0-1.8); Eosinophils # (Auto) 0.1 K/mm3 (0.0-0.4); Eosinophils % (Auto) 1.2 % (0.0-4.3); Hematocrit 27.7 % (30.3-42.9); Hemoglobin 8.6 gm/dl (10.1-14.3); Lymphocytes # (Auto) 1.7 K/mm3 (1.2-5.4); Lymphocytes % (Auto) 21.2 % (13.4-35.0); Mean Corpuscular HGB Conc 31 % (30-34); Mean Corpuscular Volume 81 fl (79-97); Monocytes # (Auto) 0.3 K/mm3 (0.0-0.8); Monocytes % (Auto) 3.3 % (0.0-7.3); Platelet Count 324 K/mm3 (140-440); Red Blood Count 3.44 M/mm3 (3.65-5.03); Red Cell Distribution Width 19.6 % (13.2-15.2)
[2020-02-17 05:58] LABS: Albumin 3.3 g/dL (3.9-5); Calcium 9.3 mg/dL (8.4-10.2)
[2020-02-17] MEDS: ASPIRIN EC 325 MG TAB PO SCH (11:24)
--- NOTE | 2020-02-17 12:54 | Progress Note ---
Assessment and Plan Patient's atrial fibrillation is reasonably under control,continue present medical therapy. Considering elevated bun/creat,with patient being not able to lie down,would consider nephrology evaluation,?dialysis. 02/17/2020>Patient more comfortable,No chest pain.Awaiting nephrology consult. Continue present tratment. Subjective Date of service: 02/17/20 Principal diagnosis: Afib with RVR, CKD/end-stage renal disease Interval history: 02/16/2020>Patient was scheduled for iv Lexiscan MPI this AM,however could not lay down flat,getting restless and SOB,hence testing was not done. 02/17/2020>Feels better,no chest pain. Objective Vital Signs Temp Pulse Pulse Pulse Resp BP Pulse Ox 02/17/20 08:45 97.9 F 68 20 108/71 93 02/17/20 06:08 85 110/66 02/17/20 06:03 97.3 F L 70 20 110/66 95 02/17/20 00:00 95 H 83 83 18 96 02/16/20 22:55 95 H 110/80 02/16/20 20:36 97.4 F L 77 20 110/80 95 02/16/20 16:19 98.3 F 62 20 105/64 96 - Physical Examination General: Other (obese) HEENT: Positive: EOMI, Normocephaly, Mucus Membranes Moist Neck: Positive: neck supple, trachea midline. Negative: JVD/HJR Cardiac: Positive: Reg Rate and Rhythm Lungs: Positive: Decreased Breath Sounds Neuro: Positive: Grossly Intact Abdomen: Positive: Soft, Active Bowel Sounds. Negative: Tender, Distended Skin: Negative: Rash, Wound Musculoskeletal: No Fluid Collection, No Pain, Normal Range of Motion Extremities: Present: upper extr. pulses, lower extr. pulses. Absent: edema, +1 Edema (chronic edema noted.) - Labs and Meds Cardiac Enzymes 02/17/20 Range/Units 04:58 AST 13 (5-40) units/L CBC 02/17/20 Range/Units 04:58 WBC 7.8 (4.5-11.0) K/mm3 RBC 3.44 L (3.65-5.03) M/mm3 Hgb 8.6 L (10.1-14.3) gm/dl Hct 27.7 L (30.3-42.9) % Plt Count 324 (140-440) K/mm3 Lymph # 1.7 (1.2-5.4) K/mm3 [place] # 0.3 (0.0-0.8) K/mm3 Eos # 0.1 (0.0-0.4) K/mm3 Baso # 0.0 (0.0-0.1) K/mm3 Comprehensive Metabolic Panel 02/17/20 Range/Units 04:58 Sodium 139 (137-145) mmol/L Potassium 3.8 (3.6-5.0) mmol/L Chloride 93.0 L (98-107) mmol/L Carbon Dioxide 27 (22-30) mmol/L BUN 124 H (7-17) mg/dL Creatinine 6.2 H (0.7-1.2) mg/dL Glucose 104 H (65-100) mg/dL Calcium 9.3 (8.4-10.2) mg/dL AST 13 (5-40) units/L ALT 42 (7-56) units/L Alkaline Phosphatase 127 (35-129) units/L Total Protein 7.1 (6.3-8.2) g/dL Albumin 3.3 L (3.9-5) g/dL - Imaging and Cardiology EKG: report reviewed, image reviewed Echo: report reviewed (11/2019: EF 55-60%; mild-mod LVH; mod MR) - EKG Ventricular dysrhythmias: ventricular premature com
[2020-02-17] MEDS ORDERED: guaiFENesin 100 MG/5 ML ORAL LIQD PO PRN (15:12)
--- NOTE | 2020-02-17 15:43 | XRay Report ---
CHEST 1 VIEW 02/17/2020 2:37 PM INDICATION / CLINICAL INFORMATION: coughing up blood. COMPARISON: One view of the chest from 02/14/2020. FINDINGS: Portable technique limits this study. SUPPORT DEVICES: None. HEART / MEDIASTINUM: Stable. LUNGS / PLEURA: Generalized bilateral pulmonary opacities are seen without a significant pleural effu ahsan or pneumothorax. ADDITIONAL FINDINGS: No significant additional findings. IMPRESSION: Nonspecific bilateral pulmonary opacities. Considerations include atelectasis/edema and pneumonia. Pl ease correlate with clinical findings. Signer Name: Rocky Moreira MD Signed: 02/17/2020 3:39 PM Workstation Name: [id number]
[2020-02-17 16:35] LABS: Basophils # (Auto) 0.1 K/mm3 (0.0-0.1); Basophils % (Auto) 1.1 % (0.0-1.8); Eosinophils # (Auto) 0.2 K/mm3 (0.0-0.4); Eosinophils % (Auto) 1.9 % (0.0-4.3); Hematocrit 26.3 % (30.3-42.9); Hemoglobin 8.1 gm/dl (10.1-14.3); Lymphocytes # (Auto) 0.8 K/mm3 (1.2-5.4); Lymphocytes % (Auto) 9.3 % (13.4-35.0); Mean Corpuscular HGB Conc 31 % (30-34); Mean Corpuscular Volume 81 fl (79-97); Monocytes # (Auto) 0.3 K/mm3 (0.0-0.8); Monocytes % (Auto) 3.4 % (0.0-7.3); Platelet Count 312 K/mm3 (140-440); Red Blood Count 3.25 M/mm3 (3.65-5.03); Red Cell Distribution Width 19.2 % (13.2-15.2)
--- NOTE | 2020-02-17 18:30 | Progress Note ---
Assessment and Plan Day #2 Symptomatically better Admitted for atrial fibrillation with RVR and chest pain Day #3 Stress test could not be done because of patient not being able to lie still Day #4 Patient has epistaxis Right nasal packing was done (1) NSTEMI Current Visit: Yes Status: Acute Plan to address problem: Stress test could not be done Troponins elevated Stress could not be done because patient was not able to lie still (2) Atrial fibrillation with RVR Current Visit: Yes Status: Acute Plan to address problem: Patient had a dose of Cardizem upon arrival in the emergency room. Rate is better controlled. Patient has known history of atrial fibrillation and has been on anticoagulation. 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. Cardiology consult Rate better controlled (3) Acute on chronic renal failure Current Visit: Yes Status: Acute Qualifiers: Acute renal failure type: unspecified Chronic kidney disease stage: unspecified stage Qualified Code(s): N17.9 - Acute kidney failure, unspecified; N18.9 - Chronic kidney disease, unspecified Plan to address problem: Will monitor BUN and creatinine. BUN/creatinine high May need dialysis Nephrology consult initiated Patient apparently had dialysis in the past Baseline creatinine was 2.1 in January which has gone up to 6.3 Patient may end up on dialysis (4) Subtherapeutic international normalized ratio (INR) Current Visit: Yes Status: Acute Plan to address problem: We will monitor PT/INR. Will adjust Coumadin as needed. (5) DVT prophylaxis Current Visit: No Status: Acute Plan to address problem: Patient currently on anticoagulation. INR is subtherapeutic. (6) Full code status Current Visit: Yes Status: Acute Subjective Date of service: 02/17/20 Principal diagnosis: Afib with RVR, CKD/end-stage renal disease Interval history: Day #4 Has bleeding from the right nostril 69-year-old female with known history of atrial fibrillation, hypertension, CHF and chronic kidney disease. Presenting to the emergency room today complaining of midsternal chest pressure and shortness of breath. Symptoms were said to have started earlier this evening. She has had some mild cough which is nonproductive. There is no no relieving or exacerbating factor for chest pain. Has been no radiation. She denies any fever or chills, no nausea vomiting, no diarrhea, no headache or dizziness. She denies any recent travel and no sick contacts. Upon arrival in the emergency room patient was found to be in atrial fibrillation with RVR. She had a dose of IV Cardizem with some improvement in heart rate. Not on dialysis A. fib with rate controlled Objective - Constitutional Vitals: Vital Signs - 12hr 02/17/20 08:45 Temperature 97.9 F Pulse Rate 68 Respiratory 20 Rate Blood Pressure 108/71 O2 Sat by Pulse 93 Oximetry General appearance: Present: no acute distress, well-nourished - EENT Eyes: PERRL, EOM intact ENT: hearing intact, clear oral mucosa Ears: bilateral: normal - Neck Neck: supple, normal ROM - Respiratory Respiratory effort: normal Respiratory: bilateral: CTA - Breasts Breasts: normal - Cardiovascular Heart rate: 78 Rhythm: regular Heart Sounds: Present: S1 & S2. Absent: gallop, rub Extremities: pulses intact, No edema, normal color, Full ROM - Gastrointestinal General gastrointestinal: Present: soft, non-tender, non-distended, normal bowel sounds - Genitourinary Female genitourinary: normal - Integumentary Integumentary: clear, warm, dry - Musculoskeletal Musculoskeletal: 1, strength equal bilaterally - Neurologic Neurologic: moves all extremities - Psychiatric Psychiatric: memory intact, appropriate mood/affect, intact judgment & insight - Labs CBC & Chem 7: 02/17/20 16:26 02/17/20 04:58 Labs: Abnormal lab results 02/17/20 02/17/20 02/17/20 Range/Units 04:58 04:58 16:26 RBC 3.44 L 3.25 L (3.65-5.03) M/mm3 Hgb 8.6 L 8.1 L (10.1-14.3) gm/dl Hct 27.7 L 26.3 L (30.3-42.9) % MCH 25 L 25 L (28-32) pg RDW 19.6 H 19.2 H (13.2-15.2) % Lymph % (Auto) 9.3 L (13.4-35.0) % Lymph # 0.8 L (1.2-5.4) K/mm3 Seg Neutrophils % 73.7 H 84.3 H (40.0-70.0) % Chloride 93.0 L (98-107) mmol/L BUN 124 H (7-17) mg/dL Creatinine 6.2 H (0.7-1.2) mg/dL Glucose 104 H (65-100) mg/dL Albumin 3.3 L (3.9-5) g/dL HEART Score - HEART Score EKG: Non-specific Age: > 65 Risk factors: > 3 risk factors or hx of atherosclerotic disease Troponin: Troponin T 0.066 ng/mL (0.00-0.029) H D 02/15/20 07:45 Troponin: < normal limit - Critical Actions Critical Actions: 4-6 pts:12-16.6% risk of adverse cardiac event. Should be admitted
[2020-02-17] MEDS ORDERED: WATER FOR IRRIG STERILE 250 ML BOTTLE IR ONE (20:00)
[2020-02-18] MEDS: ASPIRIN EC 325 MG TAB PO SCH (10:14)
--- NOTE | 2020-02-18 11:44 | Progress Note ---
Assessment and Plan Cont present cardiac management. Patient's atrial fibrillation is reasonably under control, Coumadin held in the setting of anemia. Awaiting nephrology consult. Pt seen in conjunction with Dr. Oreilly who agrees with the assessment and plan of care. - Patient Problems (1) Atypical chest pain Current Visit: Yes Status: Resolved (2) NSTEMI (non-ST elevated myocardial infarction) Current Visit: Yes Status: Acute Plan to address problem: Type 2 (3) Paroxysmal atrial fibrillation with RVR Current Visit: Yes Status: Acute (4) Subtherapeutic international normalized ratio (INR) Current Visit: Yes Status: Acute (5) Acute on chronic renal failure Current Visit: Yes Status: Acute Qualifiers: Qualified Code(s): N17.9 - Acute kidney failure, unspecified; N18.9 - Chronic kidney disease, unspecified (6) Anemia Current Visit: Yes Status: Acute (7) Chronic heart failure with preserved ejection fraction (HFpEF) Current Visit: Yes Status: Chronic (8) Hx of cardiomyopathy Current Visit: Yes Status: Resolved (9) ICD (implantable cardioverter-defibrillator) in place Current Visit: Yes Status: Chronic (10) HTN (hypertension) Current Visit: Yes Status: Chronic Qualifiers: Hypertension type: essential hypertension Qualified Code(s): I10 - Essential (primary) hypertension (11) Morbid obesity Current Visit: Yes Status: Chronic Subjective Date of service: 02/18/20 Principal diagnosis: Afib with RVR, CKD/end-stage renal disease Interval history: pt resting in bed, no current cardiac complaints. in AFib on telemetry, HR 90s, with isolated PVCs overnight. Objective Last Vital Signs Temp 98.6 F 02/18/20 11:22 Pulse 65 02/18/20 11:22 Resp 20 02/18/20 11:22 BP 135/88 02/18/20 11:22 Pulse Ox 83 L 02/18/20 11:22 - Physical Examination General: No Apparent Distress HEENT: Positive: EOMI, Normocephaly, Mucus Membranes Moist Neck: Positive: neck supple, trachea midline. Negative: JVD/HJR Cardiac: Positive: irregularly irregular, S1/S2 Lungs: Positive: Decreased Breath Sounds Neuro: Positive: Grossly Intact Abdomen: Positive: Soft, Active Bowel Sounds. Negative: Tender, Distended Skin: Negative: Rash, Wound Musculoskeletal: No Fluid Collection, No Pain, Normal Range of Motion Extremities: Present: upper extr. pulses, lower extr. pulses. Absent: edema, +1 Edema (chronic edema noted.) - Labs and Meds CBC 02/17/20 Range/Units 16:26 WBC 8.5 (4.5-11.0) K/mm3 RBC 3.25 L (3.65-5.03) M/mm3 Hgb 8.1 L (10.1-14.3) gm/dl Hct 26.3 L (30.3-42.9) % Plt Count 312 (140-440) K/mm3 Lymph # 0.8 L (1.2-5.4) K/mm3 [place] # 0.3 (0.0-0.8) K/mm3 Eos # 0.2 (0.0-0.4) K/mm3 Baso # 0.1 (0.0-0.1) K/mm3 - Imaging and Cardiology EKG: report reviewed, image reviewed Echo: report reviewed (11/2019: EF 55-60%; mild-mod LVH; mod MR) - Telemetry EKG Rhythm: Atrial Fibrillation - EKG Ventricular dysrhythmias: ventricular premature com
--- NOTE | 2020-02-18 11:51 | Consultation ---
History of Present Illness - Reason for Consult Consult date: 02/18/20 end stage renal disease - History of Present Illness This is a 69 year old female who presented to the E.R with chief complaints of shortness of breath with chest pressure. Patient was found to be with Afib and RVR. Pertinent labs revealed and elevated serum creatinine of 6.2 and BUN level of 124. Patient has hsitory of CHF, Hypertension, Obesity and CKD stage 4-5. Patient was previously hospitalized here in December and January and required temporary dialysis during that most recent hospitalization. Patient's creatinine clearance was 16ml/min during last hospitalization. We are now consulted for management of this patient's ESRD. Past History Past Medical History: atrial fib, arthritis, ESRD, heart failure, hypertension, other (CMP s/p ICD) Past Surgical History: Other (hx of galina hip replacement) Social history: denies: smoking, alcohol abuse Family history: no significant family history Medications and Allergies Allergies Allergy/AdvReac Type Severity Reaction Status Date / Time No Known Allergies Allergy Unverified 08/09/13 15:10 Home Medications Medication Instructions Recorded Confirmed Last Taken Type ISOSORBIDE MONOnitrate [Imdur ER] 10 mg PO BID 11/21/19 02/16/20 12/07/19 22:00 History Nitroglycerin [Nitrostat] 0.4 mg SL Q5M PRN 11/21/19 02/16/20 Unknown History Warfarin [Coumadin] 7.5 mg PO QDAY 11/22/19 02/16/20 12/07/19 History Lidocaine Topical 5% [Xylocaine 1 applic TP DAILY #1 tube 11/27/19 02/16/20 12/07/19 Rx Topical 5%] Amiodarone [Cordarone 200 MG TAB] 200 mg PO QDAY 12/02/19 02/16/20 12/07/19 10:00 History AtorvaSTATin [Lipitor] 40 mg PO QHS 12/02/19 02/16/20 12/07/19 22:00 History Cyanocobalamin (Vitamin B-12) 1,000 mcg PO QDAY 12/02/19 02/16/20 12/07/19 10:00 History [Vitamin B-12] HYDROcodone/ACETAMINOPHEN [[place] 1 each PO Q8H 12/02/19 02/16/20 Unknown History 5/325 Tablet] Furosemide [Lasix TAB] 40 mg PO QDAY #30 tablet 12/07/19 02/16/20 12/07/19 10:00 Rx Aspirin [Aspirin BABY CHEW TAB] 81 mg PO QDAY 12/18/19 02/16/20 12/07/19 History dilTIAZem [Cardizem] 60 mg PO Q8HR #90 tablet 01/08/20 02/16/20 Unknown Rx Active Meds: Active Medications Acetaminophen (Tylenol) 650 mg PO Q4H PRN PRN Reason: Pain MILD(1-3)/Fever >100.5/ESQUIVEL Aspirin (Ecotrin) 325 mg PO QDAY [facility] Last Admin: 02/18/20 10:14 Dose: 325 mg Documented by: Diltiazem HCl (Cardizem) 90 mg PO Q8HR [facility] Last Admin: 02/18/20 06:04 Dose: 90 mg Documented by: Guaifenesin (Robitussin) 200 mg PO Q4H PRN PRN Reason: Cough Last Admin: 02/17/20 15:24 Dose: 200 mg Documented by: Magnesium Hydroxide (Milk Of Magnesia) 30 ml PO Q4H PRN PRN Reason: Constipation Morphine Sulfate (Morphine) 2 mg IV Q5MIN PRN PRN Reason: Chest Pain unrelieved by NTG Nitroglycerin (Nitrostat) 0.4 mg SL Q5M PRN PRN Reason: Chest Pain Ondansetron HCl (Zofran) 4 mg IV Q8H PRN PRN Reason: Nausea And Vomiting Sodium Chloride (Sodium Chloride Flush Syringe 10 Ml) 10 ml IV BID [facility] Last Admin: 02/18/20 10:15 Dose: 10 ml Documented by: Sodium Chloride (Sodium Chloride Flush Syringe 10 Ml) 10 ml IV PRN PRN PRN Reason: LINE FLUSH Review of Systems Constitutional: weight gain, fatigue, weakness Ears, nose, mouth and throat: no ear pain, no ear discharge, no tinnitis, no decreased hearing, no nose pain Cardiovascular: chest pain, rapid/irregular heart beat, edema, shortness of breath, dyspnea on exertion, leg edema, no orthopnea, no palpitations Respiratory: shortness of breath, dyspnea on exertion, no cough with sputum, no excessive sputum, no hemoptysis Gastrointestinal: no abdominal pain, no nausea, no vomiting, no diarrhea, no constipation Rectal: no pain, no incontinence, no bleeding Musculoskeletal: limitation of motion, gait dysfunction Integumentary: rash, no redness, no jaundice, no boils Neurological: weakness, lack of coordination, no head injury, no transient paralysis, no paralysis, no seizures, no syncope Psychiatric: no anxiety, no memory loss, no change in sleep habits, no sleep disturbances, no insomnia, no hypersomnia Endocrine: no cold intolerance, no heat intolerance, no polyphagia, no excessive thirst, no polydipsia Exam - Vital Signs Vital signs: Vital Signs Pulse Resp 96 H 13 02/14/20 19:39 02/14/20 19:39 - General Appearance General appearance: well-developed, obese, fatigue EENT: ATNC, PERRL, hearing intact, vision intact Neck: Present: neck supple Respiratory: Decreased Breath Sounds Heart: irregular, S1S2 Gastrointestinal: Present: normoactive bowel sounds, obese Integumentary: warm and dry, chronic venous stasis Neurologic: alert and oriented x3 Musculoskeletal: Present: joint swelling, decreased ROM Results - Lab Results 02/17/20 16:26 02/17/20 04:58 Most recent lab results Calcium 9.3 mg/dL (8.4-10.2) 02/17/20 04:58 Assessment and Plan End Stage Renal Disease: -Will restart hemodialysis given BUN 124 and serum creatinine 6.2, patient likely has ESRD at this point -Consulted IR Dr. David for perm-cath placement, they will make patient NPO at midnight and place perm-catheter tomorrow -HD tomorrow after perm-cath is placed -Plan for daily hemodialysis for volume removal -Fluid restriction of 1 liter per day -Start dialysis diet -Obtain daily weights -Monitor I/O's -Assess dialysis needs daily -Consulted case preparer and liner for outpatient HD placement to [facility] -Plan of care reviewed with Dr. Menchaca Acute chest pain Atrial fibrillation with RVR -On oral Cardizem -Coumadin held in the setting of anemia per Cardiology Hypertension: -Controlled Anemia: -Coumadin on hold -Start Epogen 20,000 units with HD
[2020-02-18] MEDS ORDERED: EPOETIN ALFA 20,000 UNIT/1 ML INJ IV PRN (12:47)
--- NOTE | 2020-02-18 12:50 | Event Note ---
Date: 02/18/20 Nephrology contacted us for permcath placement. NPO after MN except sips of water with meds. Plan for permcath tomorrow.
[2020-02-18 18:06] LABS: Hepatitis B Surface Antigen Non-Reactive (Negative); Hepatitis C Virus Antibody Non-Reactive (NonReactive)
--- NOTE | 2020-02-19 06:51 | Progress Note ---
Assessment and Plan Day #2 Symptomatically better Admitted for atrial fibrillation with RVR and chest pain Day #3 Stress test could not be done because of patient not being able to lie still Day #4 Patient has epistaxis Right nasal packing was done Day #5 Epistaxis resolved For permacath tomorrow (1) NSTEMI Current Visit: Yes Status: Acute Plan to address problem: Stress test could not be done Troponins elevated Stress could not be done because patient was not able to lie still Troponins elevated because of the kidney failure Will defer to cardiology order stress test' (2) Atrial fibrillation with RVR Current Visit: Yes Status: Acute Plan to address problem: Patient had a dose of Cardizem upon arrival in the emergency room. Rate is better controlled. Patient has known history of atrial fibrillation and has been on anticoagulation. Patient follows up with a critical care clinical nurse specialist at [facility]. Cardiology consult Rate better controlled (3) Acute on chronic renal failure Current Visit: Yes Status: Acute Qualifiers: Acute renal failure type: unspecified Chronic kidney disease stage: unspecified stage Qualified Code(s): N17.9 - Acute kidney failure, unspecified; N18.9 - Chronic kidney disease, unspecified Plan to address problem: Will monitor BUN and creatinine. BUN/creatinine high May need dialysis Nephrology consult initiated Patient apparently had dialysis in the past Baseline creatinine was 2.1 in January which has gone up to 6.3 Patient may end up on dialysis (4) Subtherapeutic international normalized ratio (INR) Current Visit: Yes Status: Acute Plan to address problem: We will monitor PT/INR. Will adjust Coumadin as needed. Coumadin discontinued Eliquis to be started from 02/19/2020 after Vas-Cath procedure (5) DVT prophylaxis Current Visit: No Status: Acute Plan to address problem: Patient currently on anticoagulation. INR is subtherapeutic. (6) Full code status Current Visit: Yes Status: Acute For Vas-Cath tomorrow followed by dialysis Also needs dialysis chair Subjective Date of service: 02/18/20 Principal diagnosis: Afib with RVR, CKD/end-stage renal disease Interval history: Day # Has bleeding from the right nostril which has resolved 69-year-old female with known history of atrial fibrillation, hypertension, CHF and chronic kidney disease. Presenting to the emergency room today complaining of midsternal chest pressure and shortness of breath. Symptoms were said to have started earlier this evening. She has had some mild cough which is nonproductive. There is no no relieving or exacerbating factor for chest pain. Has been no radiation. She denies any fever or chills, no nausea vomiting, no diarrhea, no headache or dizziness. She denies any recent travel and no sick contacts. Upon arrival in the emergency room patient was found to be in atrial fibrillation with RVR. She had a dose of IV Cardizem with some improvement in heart rate. Not on dialysis A. fib with rate controlled Objective - Constitutional Vitals: Vital Signs - 12hr 02/18/20 02/18/20 02/18/20 19:30 21:54 23:16 Temperature 98.6 F 97.5 F L Pulse Rate 54 L 92 H 68 Respiratory 18 18 Rate Blood Pressure 104/54 83/57 Blood Pressure [Left] O2 Sat by Pulse 100 94 Oximetry 02/19/20 02/19/20 00:00 03:28 Temperature 98.6 F Pulse Rate 54 L Respiratory 18 Rate Blood Pressure 98/57 Blood Pressure 90/52 [Left] O2 Sat by Pulse 94 Oximetry General appearance: Present: no acute distress, well-nourished - EENT Eyes: PERRL, EOM intact ENT: hearing intact, clear oral mucosa Ears: bilateral: normal - Neck Neck: supple, normal ROM - Respiratory Respiratory effort: normal Respiratory: bilateral: CTA - Breasts Breasts: normal - Cardiovascular Heart rate: 86 Rhythm: irregularly irregular Heart Sounds: Present: S1 & S2. Absent: gallop, rub Extremities: pulses intact, No edema, normal color, Full ROM - Gastrointestinal General gastrointestinal: Present: soft, non-tender, non-distended, normal bowel sounds - Genitourinary Female genitourinary: normal - Integumentary Integumentary: clear, warm, dry - Musculoskeletal Musculoskeletal: 1, strength equal bilaterally - Neurologic Neurologic: moves all extremities - Psychiatric Psychiatric: memory intact, appropriate mood/affect, intact judgment & insight - Labs CBC & Chem 7: 02/17/20 16:26 02/17/20 04:58 HEART Score - HEART Score EKG: Non-specific Age: > 65 Risk factors: > 3 risk factors or hx of atherosclerotic disease Troponin: Troponin T 0.066 ng/mL (0.00-0.029) H D 02/15/20 07:45 Troponin: < normal limit - Critical Actions Critical Actions: 4-6 pts:12-16.6% risk of adverse cardiac event. Should be admitted
--- NOTE | 2020-02-19 10:23 | Progress Note ---
Assessment and Plan End Stage Renal Disease: -currently refusing permcath and dialysis, risk of refusing dialyssi explained in details for patient, she continues to refuse - will reassess again tomorrow if she is agreeable -Fluid restriction of 1 liter per day -Start dialysis diet -Obtain daily weights -Monitor I/O's -Assess dialysis needs daily Acute chest pain Atrial fibrillation with RVR -On oral Cardizem -Coumadin held in the setting of anemia per Cardiology Hypertension: -Controlled Anemia: -Coumadin on hold -Start Epogen 20,000 units with HD Subjective Date of service: 02/19/20 Principal diagnosis: Afib with RVR, CKD/end-stage renal disease Interval history: patient refused permcath placement this AM, stating it caused her a lot of neck pain. risk of not starting dialyssi including explained to patient, she continue to refuse. she was lert roiented anX3 and voiced understating Objective - Vital Signs Vital signs: Vital Signs - 12hr 02/18/20 02/19/20 02/19/20 23:16 00:00 03:28 Temperature 97.5 F L 98.6 F Pulse Rate 68 54 L Respiratory 18 18 Rate Blood Pressure 83/57 98/57 Blood Pressure 90/52 [Left] O2 Sat by Pulse 94 94 Oximetry 02/19/20 02/19/20 07:09 08:35 Temperature 97.7 F Pulse Rate 54 L 47 L Respiratory 17 Rate Blood Pressure 98/57 Blood Pressure 116/68 [Left] O2 Sat by Pulse 97 Oximetry - General Appearance General appearance: well-developed, obese EENT: ATNC, PERRL Respiratory: Present: Decreased Breath Sounds Cardiology: irregular Gastrointestinal: normoactive bowel sounds, no tenderness, no distended Integumentary: no rash, warm and dry Neurologic: no focal deficit, no asterixis, alert and oriented x3 Musculoskeletal: other (edema in BLE) Psychiatric: cooperative - Lab 02/17/20 16:26 02/19/20 06:10 Most recent lab results Calcium 9.0 mg/dL (8.4-10.2) 02/19/20 06:10 Phosphorus 5.70 mg/dL (2.5-4.5) H 02/19/20 06:10 Medications & Allergies - Medications Allergies/Adverse Reactions: Allergies No Known Allergies Allergy (Unverified 08/09/13 15:10) Home Medications: Home Medications Medication Instructions Recorded Confirmed Last Taken Type ISOSORBIDE MONOnitrate [Imdur ER] 10 mg PO BID 11/21/19 02/16/20 12/07/19 22:00 History Nitroglycerin [Nitrostat] 0.4 mg SL Q5M PRN 11/21/19 02/16/20 Unknown History Warfarin [Coumadin] 7.5 mg PO QDAY 11/22/19 02/16/20 12/07/19 History Lidocaine Topical 5% [Xylocaine 1 applic TP DAILY #1 tube 11/27/19 02/16/20 12/07/19 Rx Topical 5%] Amiodarone [Cordarone 200 MG TAB] 200 mg PO QDAY 12/02/19 02/16/20 12/07/19 10 :00 History AtorvaSTATin [Lipitor] 40 mg PO QHS 12/02/19 02/16/20 12/07/19 22:00 History Cyanocobalamin (Vitamin B-12) 1,000 mcg PO QDAY 12/02/19 02/16/20 12/07/19 10:00 History [Vitamin B-12] HYDROcodone/ACETAMINOPHEN [[place] 1 each PO Q8H 12/02/19 02/16/20 Unknown History 5/325 Tablet] Furosemide [Lasix TAB] 40 mg PO QDAY #30 tablet 12/07/19 02/16/20 12/07/19 10:00 Rx Aspirin [Aspirin BABY CHEW TAB] 81 mg PO QDAY 12/18/19 02/16/20 12/07/19 History dilTIAZem [Cardizem] 60 mg PO Q8HR #90 tablet 01/08/20 02/16/20 Unknown Rx Active Medications: Generic Name Dose Route Start Last Admin Trade Name Freq PRN Reason Stop Dose Admin Acetaminophen 650 mg 02/14/20 22:10 Tylenol PO Q4H PRN Pain MILD(1-3)/Fever >100.5/ESQUIVEL Aspirin 325 mg 02/15/20 10:00 02/18/20 10:14 Ecotrin PO 325 mg QDAY BHAVANI Administration Diltiazem HCl 90 mg 02/15/20 10:00 02/19/20 07:09 Cardizem PO Not Given Q8HR BHAVANI Epoetin [place] 20,000 unit 02/18/20 12:47 Procrit IV KIMMIE PRN hemodialysis Guaifenesin 200 mg 02/17/20 15:12 02/17/20 15:24 Robitussin PO 200 mg Q4H PRN Administration Cough Magnesium Hydroxide 30 ml 02/14/20 22:10 Milk Of Magnesia PO Q4H PRN Constipation Morphine Sulfate 2 mg 02/14/20 22:10 Morphine IV Q5MIN PRN Chest Pain unrelieved by NTG Nitroglycerin 0.4 mg 02/14/20 22:10 Nitrostat SL Q5M PRN Chest Pain Ondansetron HCl 4 mg 02/14/20 22:10 Zofran IV Q8H PRN Nausea And Vomiting Sodium Chloride 10 ml 02/15/20 10:00 02/18/20 21:54 Sodium Chloride Flush Syringe 10 Ml IV 10 ml BID BHAVANI Administration Sodium Chloride 10 ml 02/14/20 22:10 Sodium Chloride Flush Syringe 10 Ml IV PRN PRN LINE FLUSH
--- NOTE | 2020-02-19 11:03 | Progress Note ---
Assessment and Plan Pt for permacath placement today and initiation of HD per nephrology. Patient in AFib with CVR. Coumadin held in the setting of anemia. F/u CBC and INR in AM and consider resumption of Coumadin and/or heparin gtt. Pt seen in conjunction with Dr. Oreilly who agrees with the assessment and plan of care. - Patient Problems (1) Atypical chest pain Current Visit: Yes Status: Resolved (2) NSTEMI (non-ST elevated myocardial infarction) Current Visit: Yes Status: Acute Plan to address problem: Type 2 (3) Paroxysmal atrial fibrillation with RVR Current Visit: Yes Status: Acute (4) Subtherapeutic international normalized ratio (INR) Current Visit: Yes Status: Acute (5) Acute on chronic renal failure Current Visit: Yes Status: Acute Qualifiers: Qualified Code(s): N17.9 - Acute kidney failure, unspecified; N18.9 - Chronic kidney disease, unspecified (6) Anemia Current Visit: Yes Status: Acute (7) Chronic heart failure with preserved ejection fraction (HFpEF) Current Visit: Yes Status: Chronic (8) Hx of cardiomyopathy Current Visit: Yes Status: Resolved (9) ICD (implantable cardioverter-defibrillator) in place Current Visit: Yes Status: Chronic (10) HTN (hypertension) Current Visit: Yes Status: Chronic Qualifiers: Hypertension type: essential hypertension Qualified Code(s): I10 - Essential (primary) hypertension (11) Morbid obesity Current Visit: Yes Status: Chronic Subjective Date of service: 02/19/20 Principal diagnosis: Afib with RVR, CKD/end-stage renal disease Interval history: pt resting in bed, no current cardiac complaints. in AFib on telemetry, HR 90s, with frequent isolated PVCs and some bigeminy overnight. Objective Last Vital Signs Temp 97.7 F 02/19/20 08:35 Pulse 47 L 02/19/20 08:35 Resp 17 02/19/20 08:35 BP 116/68 02/19/20 08:35 Pulse Ox 97 02/19/20 08:35 - Physical Examination General: No Apparent Distress HEENT: Positive: EOMI, Normocephaly, Mucus Membranes Moist Neck: Positive: neck supple Cardiac: Positive: irregularly irregular, S1/S2 Lungs: Positive: Decreased Breath Sounds Neuro: Positive: Grossly Intact Abdomen: Positive: Soft, Active Bowel Sounds. Negative: Tender, Distended Skin: Negative: Rash, Wound Musculoskeletal: No Fluid Collection, No Pain, Normal Range of Motion Extremities: Present: upper extr. pulses, lower extr. pulses. Absent: edema, +1 Edema (chronic edema noted.) - Labs and Meds Comprehensive Metabolic Panel 02/19/20 Range/Units 06:10 Sodium 133 L (137-145) mmol/L Potassium 3.6 (3.6-5.0) mmol/L Chloride 89.0 L (98-107) mmol/L Carbon Dioxide 26 (22-30) mmol/L BUN 124 H (7-17) mg/dL Creatinine 6.6 H (0.7-1.2) mg/dL Glucose 107 H (65-100) mg/dL Calcium 9.0 (8.4-10.2) mg/dL - Imaging and Cardiology EKG: report reviewed, image reviewed Echo: report reviewed (11/2019: EF 55-60%; mild-mod LVH; mod MR) - EKG Ventricular dysrhythmias: ventricular premature com
--- NOTE | 2020-02-19 11:49 | Consultation ---
History of Present Illness - Reason for Consult Consult date: 02/19/20 Permcath placement Requesting physician: TURNER JUAREZ - History of Present Illness 69 year old female who presented to the E.R with chief complaints of shortness of breath with chest pressure. Patient was found to be with Afib and RVR. Pertinent labs revealed and elevated serum creatinine of 6.2 and BUN level of 124. Patient has hsitory of CHF, Hypertension, Obesity and CKD stage 4-5. Patient was previously hospitalized here in December and January and required temporary dialysis during that most recent hospitalization. Patient's creatinine clearance was 16ml/min during last hospitalization. We are now consulted for management of this patient's ESRD. Vascular consulted for dialysis access placement. I had a discussion with the patient who ultimately declined dialysis access placement. Past History Past Medical History: atrial fib, arthritis, ESRD, heart failure, hypertension, other (CMP s/p ICD) Past Surgical History: Other (hx of galina hip replacement) Social history: denies: smoking, alcohol abuse Family history: no significant family history Medications and Allergies Allergies Allergy/AdvReac Type Severity Reaction Status Date / Time No Known Allergies Allergy Unverified 08/09/13 15:10 Home Medications Medication Instructions Recorded Confirmed Last Taken Type ISOSORBIDE MONOnitrate [Imdur ER] 10 mg PO BID 11/21/19 02/16/20 12/07/19 22:00 History Nitroglycerin [Nitrostat] 0.4 mg SL Q5M PRN 11/21/19 02/16/20 Unknown History Warfarin [Coumadin] 7.5 mg PO QDAY 11/22/19 02/16/20 12/07/19 History Lidocaine Topical 5% [Xylocaine 1 applic TP DAILY #1 tube 11/27/19 02/16/20 12/07/19 Rx Topical 5%] Amiodarone [Cordarone 200 MG TAB] 200 mg PO QDAY 12/02/19 02/16/20 12/07/19 10:00 History AtorvaSTATin [Lipitor] 40 mg PO QHS 12/02/19 02/16/20 12/07/19 22:00 History Cyanocobalamin (Vitamin B-12) 1,000 mcg PO QDAY 12/02/19 02/16/20 12/07/19 10:00 History [Vitamin B-12] HYDROcodone/ACETAMINOPHEN [[place] 1 each PO Q8H 12/02/19 02/16/20 Unknown History 5/325 Tablet] Furosemide [Lasix TAB] 40 mg PO QDAY #30 tablet 12/07/19 02/16/20 12/07/19 10:00 Rx Aspirin [Aspirin BABY CHEW TAB] 81 mg PO QDAY 12/18/19 02/16/20 12/07/19 History dilTIAZem [Cardizem] 60 mg PO Q8HR #90 tablet 01/08/20 02/16/20 Unknown Rx Active Meds: Active Medications Acetaminophen (Tylenol) 650 mg PO Q4H PRN PRN Reason: Pain MILD(1-3)/Fever >100.5/ESQUIVEL Aspirin (Ecotrin) 325 mg PO QDAY [facility] Last Admin: 02/18/20 10:14 Dose: 325 mg Documented by: Diltiazem HCl (Cardizem) 90 mg PO Q8HR [facility] Last Admin: 02/19/20 07:09 Dose: Not Given Documented by: Epoetin Timoteo (Procrit) 20,000 unit IV KIMMIE PRN PRN Reason: hemodialysis Guaifenesin (Robitussin) 200 mg PO Q4H PRN PRN Reason: Cough Last Admin: 02/17/20 15:24 Dose: 200 mg Documented by: Magnesium Hydroxide (Milk Of Magnesia) 30 ml PO Q4H PRN PRN Reason: Constipation Morphine Sulfate (Morphine) 2 mg IV Q5MIN PRN PRN Reason: Chest Pain unrelieved by NTG Nitroglycerin (Nitrostat) 0.4 mg SL Q5M PRN PRN Reason: Chest Pain Ondansetron HCl (Zofran) 4 mg IV Q8H PRN PRN Reason: Nausea And Vomiting Sodium Chloride (Sodium Chloride Flush Syringe 10 Ml) 10 ml IV BID [facility] Last Admin: 02/18/20 21:54 Dose: 10 ml Documented by: Sodium Chloride (Sodium Chloride Flush Syringe 10 Ml) 10 ml IV PRN PRN PRN Reason: LINE FLUSH Review of Systems All systems: negative (see HPI) Exam - Constitutional Vitals: Temp Pulse Resp BP Pulse Ox 97.7 F 47 L 17 116/68 97 02/19/20 08:35 02/19/20 08:35 02/19/20 08:35 02/19/20 08:35 02/19/20 08:35 General appearance: Present: no acute distress, obese (morbid obesity) - EENT Eyes: Present: EOM intact ENT: hearing intact - Respiratory Respiratory effort: other (on oxygen) - Extremities Extremities: normal temperature, normal color Extremity abnormal: edema (3+ bilaterally) - Psychiatric Psychiatric: cooperative, depressed Results - Labs CBC & Chem 7: 02/17/20 16:26 02/19/20 06:10 Labs: Abnormal lab results 02/19/20 Range/Units 06:10 Sodium 133 L (137-145) mmol/L Chloride 89.0 L (98-107) mmol/L BUN 124 H (7-17) mg/dL Creatinine 6.6 H (0.7-1.2) mg/dL Glucose 107 H (65-100) mg/dL Phosphorus 5.70 H (2.5-4.5) mg/dL Assessment and Plan 69 year old female with CKD progressing to ESRD. Patient has declined permcath placement. Understands risks of mobidity and mortality. Discussed in detail with patient. Contacted Dr. Vargas afterwards to discuss with him. Please contact us again if patient changes her mind.
[2020-02-19] MEDS: ASPIRIN EC 325 MG TAB PO SCH (12:15)
--- NOTE | 2020-02-19 13:20 | Progress Note ---
Assessment and Plan Assessment and plan: 69-year-old female with known history of atrial fibrillation, hypertension, CHF and chronic kidney disease. Presenting to the emergency room today complaining of midsternal chest pressure and shortness of breath. Symptoms were said to have started earlier this evening. She has had some mild cough which is nonproductive. There is no no relieving or exacerbating factor for chest pain. Has been no radiation. She denies any fever or chills, no nausea vomiting, no diarrhea, no headache or dizziness. She denies any recent travel and no sick contacts. Upon arrival in the emergency room patient was found to be in atrial fibrillation with RVR. She had a dose of IV Cardizem with some improvement in heart rate. Not on dialysis A. fib with rate controlled Day #2 Symptomatically better Admitted for atrial fibrillation with RVR and chest pain Day #3 Stress test could not be done because of patient not being able to lie still Day #4 Patient has epistaxis Right nasal packing was done Day #5 Epistaxis resolved For permacath tomorrow day 6: Refused, Permacth, wants to re-evaluate in am. case management to work on dialysis chair, will also attempt to speak with family if patient permits. Morbid Obesity: weightloss counselling provided for 15 mins (1) NSTEMI Current Visit: Yes Status: Acute Plan to address problem: Stress test could not be done Troponins elevated Stress could not be done because patient was not able to lie still Troponins elevated because of the kidney failure Will defer to cardiology order stress test' (2) Atrial fibrillation with RVR Current Visit: Yes Status: Acute Plan to address problem: Patient had a dose of Cardizem upon arrival in the emergency room. Rate is better controlled. Patient has known history of atrial fibrillation and has been on anticoagulation. 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 Cardiology consult Rate better controlled (3) Acute on chronic renal failure Current Visit: Yes Status: Acute Qualifiers: Acute renal failure type: unspecified Chronic kidney disease stage: unspecified stage Qualified Code(s): N17.9 - Acute kidney failure, unspecified; N18.9 - Chronic kidney disease, unspecified Plan to address problem: Will monitor BUN and creatinine. BUN/creatinine high May need dialysis Nephrology consult initiated Patient apparently had dialysis in the past Baseline creatinine was 2.1 in January which has gone up to 6.3 Patient may end up on dialysis (4) Subtherapeutic international normalized ratio (INR) Current Visit: Yes Status: Acute Plan to address problem: We will monitor PT/INR. Will adjust Coumadin as needed. Coumadin discontinued Eliquis to be started from 02/19/2020 after Vas-Cath procedure (5) Anemia of chronic disease Monitor closely, Start on iron supplementation (6) DVT prophylaxis Current Visit: No Status: Acute Plan to address problem: Patient currently on anticoagulation. INR is subtherapeutic. (7) Full code status Current Visit: Yes Status: Acute History Interval history: Patient seen and examined, lethargic, responsive and following commands, no evidence of confusion. "I just dont know the hurry in placing the catheter, also they have to go through my neck and it is painful and uncomfortable. " Hospitalist Physical - Physical exam Narrative exam: VITAL SIGNS: Reviewed. GENERAL: The patient appears normally developed, obese, Vital signs as documented. HEAD: No signs of head trauma. EYES: Pupils are equal. Extraocular motions intact. EARS: Hearing grossly intact. MOUTH: Oropharynx is normal. NECK: No adenopathy, no JVD. CHEST: Chest with clear breath sounds bilaterally. No wheezes, rales, or rhonchi. CARDIAC: Regular rate and rhythm. S1 and S2, without murmurs, gallops, or r ubs. VASCULAR: No Edema. Peripheral pulses normal and equal in all extremities. ABDOMEN: Soft, non tender and non distended. No rebound or guarding, and no masses palpated. Bowel Sounds normal. MUSCULOSKELETAL: Good range of motion of all major joints. Extremities without clubbing, cyanosis or edema. NEUROLOGIC EXAM: Alert and oriented x 3 No focal sensory or strength deficits. Speech normal. Follows commands. PSYCHIATRIC: Mood normal. SKIN: detial exam as documented in skin assessment - Constitutional Vitals: Temp Pulse Resp BP Pulse Ox 97.6 F 87 17 94/56 96 02/19/20 12:07 02/19/20 12:07 02/19/20 12:07 02/19/20 12:02/19/20 12:07 General appearance: Present: no acute distress, well-nourished HEART Score - HEART Score EKG: Non-specific Age: > 65 Risk factors: > 3 risk factors or hx of atherosclerotic disease Troponin: Troponin T 0.066 ng/mL (0.00-0.029) H D 02/15/20 07:45 Troponin: < normal limit - Critical Actions Critical Actions: 4-6 pts:12-16.6% risk of adverse cardiac event. Should be admitted Results - Labs CBC & Chem 7: 02/20/20 04:09 02/19/20 06:10 Labs: Laboratory Last Values WBC 8.5 K/mm3 (4.5-11.0) 02/17/20 16:26 RBC 3.25 M/mm3 (3.65-5.03) L 02/17/20 16:26 Hgb 8.1 gm/dl (10.1-14.3) L 02/17/20 16:26 Hct 26.3 % (30.3-42.9) L 02/17/20 16:26 MCV 81 fl (79-97) 02/17/20 16: MCH 25 pg (28-32) L 02/17/20 16: MCHC 31 % (30-34) 02/17/20 16:26 RDW 19.2 % (13.2-15.2) H 02/17/20 16:26 Plt Count 312 K/mm3 (140-440) 02/17/20 16:26 Lymph % (Auto) 9.3 % (13.4-35.0) L 02/17/20 16:26 [place] % (Auto) 3.4 % (0.0-7.3) 02/17/20 16:26 Eos % (Auto) 1.9 % (0.0-4.3) 02/17/20 16:26 Baso % (Auto) 1.1 % (0.0-1.8) 02/17/20 16:26 Lymph # 0.8 K/mm3 (1.2-5.4) L 02/17/20 16:26 Creek # 0.3 K/mm3 (0.0-0.8) 02/17/20 16:26 Eos # 0.2 K/mm3 (0.0-0.4) 02/17/20 16: Baso # 0.1 K/mm3 (0.0-0.1) 02/17/20 16:26 Seg Neutrophils % 84.3 % (40.0-70.0) H 02/17/20 16:26 Seg Neutrophils # 7.2 K/mm3 (1.8-7.7) 02/17/20 16:26 PT 17.8 Sec. (12.2-14.9) H 02/15/20 07:45 INR 1.50 (0.87-1.13) H 02/15/20 07:45 Sodium 133 mmol/L (137-145) L 02/19/20 06:10 Potassium 3.6 mmol/L (3.6-5.0) 02/19/20 06:10 Chloride 89.0 mmol/L (98-107) L 02/19/20 06:10 Carbon Dioxide 26 mmol/L (22-30) 02/19/20 06:10 Anion Gap 22 mmol/L 02/19/20 06:10 BUN 124 mg/dL (7-17) H 02/19/20 06:10 Creatinine 6.6 mg/dL (0.7-1.2) H 02/19/20 06:10 Estimated GFR 8 ml/min 02/19/20 06:10 BUN/Creatinine Ratio 19 % 02/19/20 06:10 Glucose 107 mg/dL (65-100) H 02/19/20 06:10 Calcium 9.0 mg/dL (8.4-10.2) 02/19/20 06:10 Phosphorus 5.70 mg/dL (2.5-4.5) H 02/19/20 06:10 Total Bilirubin 0.80 mg/dL (0.1-1.2) 02/17/20 04:58 AST 13 units/L (5-40) 02/17/20 04:58 ALT 42 units/L (7-56) 02/17/20 04:58 Alkaline Phosphatase 127 units/L (35-129) 02/17/20 04:58 Troponin T 0.066 ng/mL (0.00-0.029) H D 02/15/20 07:45 Total Protein 7.1 g/dL (6.3-8.2) 02/17/20 04:58 Albumin 3.3 g/dL (3.9-5) L 02/17/20 04:58 Albumin/Globulin Ratio 0.9 % 02/17/20 04:58 Triglycerides 82 mg/dL (2-149) 02/14/20 20:06 Cholesterol 118 mg/dL (50-199) 02/14/20 20:06 LDL Cholesterol Direct 72 mg/dL (50-130) 02/14/20 20:06 HDL Cholesterol 33 mg/dL (40-59) L 02/14/20 20:06 Cholesterol/HDL Ratio 3.57 % 02/14/20 20:06 Hepatitis A IgM Ab -1 (NonReactive) 02/18/20 17:13 Hep Bs Antigen Non-reactive (Negative) 02/18/20 17:13 Hep B Core IgM Ab Non-reactive (NonReactive) 02/18/20 17:13 Hepatitis C Antibody Non-reactive (NonReactive) 02/18/20 17:13 Martinez/IV: Voiding Method Toilet IV Catheter Type [Left Hand] INT / Saline Lock Active Medications - Current Medications Current Medications: Generic Name Dose Route Start Last Admin Trade Name Freq PRN Reason Stop Dose Admin Acetaminophen 650 mg 02/14/20 22:10 Tylenol PO Q4H PRN Pain MILD(1-3)/Fever >100.5/ESQUIVEL Aspirin 325 mg 02/15/20 10:00 02/18/20 10:14 Ecotrin PO 325 mg QDAY [facility] Administration Diltiazem HCl 90 mg 02/15/20 10:00 02/19/20 07:09 Cardizem PO Not Given Q8HR [facility] Epoetin Tim[place]o 20,000 unit 02/18/20 12:47 Procrit IV KIMMIE PRN hemodialysis Guaifenesin 200 mg 02/17/20 15:12 02/17/20 15:24 Robitussin PO 200 mg Q4H PRN Administration Cough Magnesium Hydroxide 30 ml 02/14/20 22:10 Milk Of Magnesia PO Q4H PRN Constipation Morphine Sulfate 2 mg 02/14/20 22:10 Morphine IV Q5MIN PRN Chest Pain unrelieved by NTG Nitroglycerin 0.4 mg 02/14/20 22:10 Nitrostat SL Q5M PRN Chest Pain Ondansetron HCl 4 mg 02/14/20 22:10 Zofran IV Q8H PRN Nausea And Vomiting Sodium Chloride 10 ml 02/15/20 10:00 02/18/20 21:54 Sodium Chloride Flush Syringe 10 Ml IV 10 ml BID BHAVANI Administration Sodium Chloride 10 ml 02/14/20 22:10 Sodium Chloride Flush Syringe 10 Ml IV PRN PRN LINE FLUSH Nutrition/Malnutrition Assess - Dietary Evaluation Nutrition/Malnutrition Findings: Nutrition Notes Start: 02/15/20 14:25 Freq: Status: Active Protocol: Document 02/18/20 14:08 LM (Rec: 02/18/20 14:10 LM [email or web address]) Nutrition Notes Initial or Follow up Reassessment Current Diagnosis Acute Kidney Injury,CKD(stage I-IV),Decubitus(Pressure Ulcer ),Heart Failure Other Pertinent Diagnosis chest pain, afib, sacral PU Current Diet cardiac Labs/Tests BUN 24 Cr 6.2 Pertinent Medications reviewed Height 5 ft 8 in Weight 146.057 kg [place] Body Weight (kg) 63.63 BMI 48.9 Weight Status Morbidly Obese Subjective/Other Information Pt does not like the food provided and does not like ONS . Food preferences taken. Burn Absent Trauma Absent Current % PO Negligible Minimum of two criteria No physical signs of malnutrition #1 Nutrition Diagnosis Increased nutrient needs ( specify in comment below) Diagnosis Progress(for reassessment Continues documentation) Is patient on ventilator? No Is Patient Ambulatory and/or Out of Bed No REE-([facility]-confined to bed) [phone] Calculation Used for Recommendations Kcal/kg Additional Notes Protein: 131-158g (1.25-1.5g/ kg using AdjBW 105kg) Fluid: 1 ml/kcal or per MD Nutrition Intervention Change Diet Order: continue cardiac Goal #1 meet at least 75% of energy and protein needs Anticipated Discharge Needs: cardiac Follow-Up By: 02/20/20 Additional Comments F/U for intakes
[2020-02-20 04:53] LABS: Hematocrit 26.5 % (30.3-42.9); Hemoglobin 7.9 gm/dl (10.1-14.3); Mean Corpuscular HGB Conc 30 % (30-34); Mean Corpuscular Volume 81 fl (79-97); Platelet Count 251 K/mm3 (140-440); Red Blood Count 3.26 M/mm3 (3.65-5.03); Red Cell Distribution Width 19.5 % (13.2-15.2)
[2020-02-20 04:56] LABS: INR 1.17 (0.87-1.13)
--- NOTE | 2020-02-20 08:20 | Progress Note ---
<AUGUSTOJUAN ANTONIO ChaseLeticia - Last Filed: 02/20/20 11:37> Assessment and Plan - Patient Problems (1) Atrial fibrillation with RVR Current Visit: Yes Status: Acute Plan to address problem: - 02/18 Coumadin held r/t anemia - Unable to completed stress test because the patient cannot lie still - Troponin may be elevated in setting of CKD - Anticougulation can be restarted per cardiology - Cardizem for rate control - ASA - Cardiology consulted and signed off now - BP monitoring per protocol - monitor tech in place (2) Acute on chronic renal failure Current Visit: Yes Status: Acute Qualifiers: Qualified Code(s): N17.9 - Acute kidney failure, unspecified; N18.9 - Chronic kidney disease, unspecified Plan to address problem: - Trend BUN and Cr - Renal diet - Nephrology was consulted for HD ( baseline Cr 2.1 in January which has gone up to 6.6) - Continues to refuse permcath - 1 liter fluid restriction - Epogen and Iron added (3) Chronic heart failure with preserved ejection fraction (HFpEF) Current Visit: Yes Status: Chronic (4) HTN (hypertension) Current Visit: Yes Status: Chronic Qualifiers: Hypertension type: essential hypertension Qualified Code(s): I10 - Essential (primary) hypertension (5) DVT prophylaxis Current Visit: No Status: Acute Plan to address problem: - SCDs while in bed - Systemic anticoagulation to be started History Interval history: HD 7: 69-year-old female with of afib, HTN, HFpEF, obesity and CKD presented with midsternal chest pressure and SOB. She was found to be in afib with RVR s/p IV cardizem and cardiology was consulted. Nephrology was consulted and planned for HD. However she has been refusing placement of vascath. At the time of my exam she is arousable but still refusing a vascath placement stating "I'll think about it." Counseling was provided for the need for dialysis and patient stated she understands. She would not give me a reason as to why she is refusing. TRE is working on securing a HD chair for her. Her Coumadin was held on 02/18 and was to start Eliquis after vascath placement. Cardiology recommends resumption of coumadin with target INR 2-3 if no plans for surgery/permacath placement in the near future. Day 2: Symptomatically better, Admitted for atrial fibrillation with RVR and chest pain Day 3: Stress test could not be done because of patient not being able to lie still Day 4: Patient has epistaxis s/p Right nasal packing Day 5: Epistaxis resolved, For permacath tomorrow Day 6: Refused, Permacath, wants to re-evaluate in am. case management to work on dialysis chair, will also attempt to speak with family if patient permits. Morbid Obesity: weight loss counselling provided for 15 mins Hospitalist Physical - Constitutional Vitals: Temp Pulse Resp BP Pulse Ox 97.9 F 41 L 18 102/58 98 02/20/20 04:09 02/20/20 04:09 02/20/20 04:09 02/20/20 06:08 02/20/20 04:09 General appearance: Present: no acute distress, well-nourished, obese - EENT Eyes: Present: PERRL, EOM intact ENT: hearing intact - Neck Neck: Present: normal ROM - Respiratory Respiratory effort: normal Respiratory: bilateral: CTA - Cardiovascular Rhythm: regular Heart Sounds: Present: S1 & S2. Absent: systolic murmur, diastolic murmur - Extremities Extremities: no ischemia, pulses intact, pulses symmetrical, No edema - Abdominal General gastrointestinal: soft, non-tender, normal bowel sounds - Integumentary Integumentary: Present: warm, dry - Psychiatric Psychiatric: cooperative (drifts off to sleep frequently) - Neurologic Neurologic: CNII-XII intact - Allied Health Allied health notes reviewed: nursing HEART Score - HEART Score EKG: Non-specific Age: > 65 Risk factors: > 3 risk factors or hx of atherosclerotic disease Troponin: Troponin T 0.066 ng/mL (0.00-0.029) H D 02/15/20 07:45 Troponin: < normal limit - Critical Actions Critical Actions: 4-6 pts:12-16.6% risk of adverse cardiac event. Should be admitted Results - Labs CBC & Chem 7: 02/20/20 04:09 02/19/20 06:10 Labs: Laboratory Last Values WBC 7.8 K/mm3 (4.5-11.0) 02/20/20 04:09 RBC 3.26 M/mm3 (3.65-5.03) L 02/20/20 04:09 Hgb 7.9 gm/dl (10.1-14.3) L 02/20/20 04:09 Hct 26.5 % (30.3-42.9) L 02/20/20 04:09 MCV 81 fl (79-97) 02/20/20 04:09 MCH 24 pg (28-32) L 02/20/20 04:09 MCHC 30 % (30-34) 02/20/20 04:09 RDW 19.5 % (13.2-15.2) H 02/20/20 04:09 Plt Count 251 K/mm3 (140-440) 02/20/20 04:09 Lymph % (Auto) 9.3 % (13.4-35.0) L 02/17/20 16:26 [place] % (Auto) 3.4 % (0.0-7.3) 02/17/20 16:26 Eos % (Auto) 1.9 % (0.0-4.3) 02/17/20 16:26 Baso % (Auto) 1.1 % (0.0-1.8) 02/17/20 16:26 Lymph # 0.8 K/mm3 (1.2-5.4) L 02/17/20 16:26 [place] # 0.3 K/mm3 (0.0-0.8) 02/17/20 16:26 Eos # 0.2 K/mm3 (0.0-0.4) 02/17/20 16:26 Baso # 0.1 K/mm3 (0.0-0.1) 02/17/20 16:26 Seg Neutrophils % 84.3 % (40.0-70.0) H 02/17/20 16:26 Seg Neutrophils # 7.2 K/mm3 (1.8-7.7) 02/17/20 16:26 PT 14.7 Sec. (12.2-14.9) 02/20/20 04:09 INR 1.17 (0.87-1.13) H 02/20/20 04:09 Sodium 133 mmol/L (137-145) L 02/19/20 06:10 Potassium 3.6 mmol/L (3.6-5.0) 02/19/20 06:10 Chloride 89.0 mmol/L (98-107) L 02/19/20 06:10 Carbon Dioxide 26 mmol/L (22-30) 02/19/20 06:10 Anion Gap 22 mmol/L 02/19/20 06:10 BUN 124 mg/dL (7-17) H 02/19/20 06:10 Creatinine 6.6 mg/dL (0.7-1.2) H 02/19/20 06:10 Estimated GFR 8 ml/min 02/19/20 06:10 BUN/Creatinine Ratio 19 % 02/19/20 06:10 Glucose 107 mg/dL (65-100) H 02/19/20 06:10 Calcium 9.0 mg/dL (8.4-10.2) 02/19/20 06:10 Phosphorus 5.70 mg/dL (2.5-4.5) H 02/19/20 06:10 Total Bilirubin 0.80 mg/dL (0.1-1.2) 02/17/20 04:58 AST 13 units/L (5-40) 02/17/20 04:58 ALT 42 units/L (7-56) 02/17/20 04:58 Alkaline Phosphatase 127 units/L (35-129) 02/17/20 04:58 Troponin T 0.066 ng/mL (0.00-0.029) H D 02/15/20 07:45 Total Protein 7.1 g/dL (6.3-8.2) 02/17/20 04:58 Albumin 3.3 g/dL (3.9-5) L 02/17/20 04:58 Albumin/Globulin Ratio 0.9 % 02/17/20 04:58 Triglycerides 82 mg/dL (2-149) 02/14/20 20:06 Cholesterol 118 mg/dL (50-199) 02/14/20 20:06 LDL Cholesterol Direct 72 mg/dL (50-130) 02/14/20 20:06 HDL Cholesterol 33 mg/dL (40-59) L 02/14/20 20:06 Cholesterol/HDL Ratio 3.57 % 02/14/20 20:06 Hepatitis A IgM Ab -1 (NonReactive) 02/18/20 17:13 Hep Bs Antigen Non-reactive (Negative) 02/18/20 17:13 Hep B Core IgM Ab Non-reactive (NonReactive) 02/18/20 17:13 Hepatitis C Antibody Non-reactive (NonReactive) 02/18/20 17:13 Martinez/IV: Voiding Method External Female Catheter IV Catheter Type [Left Hand] INT / Saline Lock Active Medications - Current Medications Current Medications: Generic Name Dose Route Start Last Admin Trade Name Freq PRN Reason Stop Dose Admin Acetaminophen 650 mg 02/14/20 22:10 Tylenol PO Q4H PRN Pain MILD(1-3)/Fever >100.5/ESQUIVEL Aspirin 325 mg 02/15/20 10:00 02/19/20 12:15 Ecotrin PO 325 mg QDAY BHAVANI Administration Diltiazem HCl 90 mg 02/15/20 10:00 02/20/20 06:08 Cardizem PO 90 mg Q8HR BHAVANI Administration Epoetin Tim[place] 20,000 unit 02/18/20 12:47 Procrit IV KIMMIE PRN hemodialysis Ferrous Sulfate 325 mg 02/20/20 10:00 Feosol PO BID BHAVANI Guaifenesin 200 mg 02/17/20 15:12 02/17/20 15:24 Robitussin PO 200 mg Q4H PRN Administration Cough Magnesium Hydroxide 30 ml 02/14/20 22:10 Milk Of Magnesia PO Q4H PRN Constipation Morphine Sulfate 2 mg 02/14/20 22:10 Morphine IV Q5MIN PRN Chest Pain unrelieved by NTG Nitroglycerin 0.4 mg 02/14/20 22:10 Nitrostat SL Q5M PRN Chest Pain Ondansetron HCl 4 mg 02/14/20 22:10 Zofran IV Q8H PRN Nausea And Vomiting Sodium Chloride 10 ml 02/15/20 10:00 02/19/20 22:20 Sodium Chloride Flush Syringe 10 Ml IV 10 ml BID BHAVANI Administration Sodium Chloride 10 ml 02/14/20 22:10 Sodium Chloride Flush Syringe 10 Ml IV PRN PRN LINE FLUSH Nutrition/Malnutrition Assess - Dietary Evaluation Nutrition/Malnutrition Findings: Nutrition Notes Start: 02/15/20 14:25 Freq: Status: Active Protocol: Document 02/18/20 14:08 LM (Rec: 02/18/20 14:10 LM [email or web address]) Nutrition Notes Initial or Follow up Reassessment Current Diagnosis Acute Kidney Injury,CKD(stage I-IV),Decubitus(Pressure Ulcer ),Heart Failure Other Pertinent Diagnosis chest pain, afib, sacral PU Current Diet cardiac Labs/Tests BUN 24 Cr 6.2 Pertinent Medications reviewed Height 5 ft 8 in Weight 146.057 kg [place] Body Weight (kg) 63.63 BMI 48.9 Weight Status Morbidly Obese Subjective/Other Information Pt does not like the food provided and does not like ONS . Food preferences taken. Burn Absent Trauma Absent Current % PO Negligible Minimum of two criteria No physical signs of malnutrition #1 Nutrition Diagnosis Increased nutrient needs ( specify in comment below) Diagnosis Progress(for reassessment Continues documentation) Is patient on ventilator? No Is Patient Ambulatory and/or Out of Bed No REE-([place] [facility]-confined to bed) 7581.566 Calculation Used for Recommendations Kcal/kg Additional Notes Protein: 131-158g (1.25-1.5g/ kg using AdjBW 105kg) Fluid: 1 ml/kcal or per MD Nutrition Intervention Change Diet Order: continue cardiac Goal #1 meet at least 75% of energy and protein needs Anticipated Discharge Needs: cardiac Follow-Up By: 02/20/20 Additional Comments F/U for intakes <TERESITA BOONE - Last Filed: 02/21/20 08:06> Assessment and Plan Assessment and plan: Patient seen and examined with DIRECT MARKETING MANAGER. plan of care as discussed Hospitalist Physical - Constitutional Vitals: Temp Pulse Resp BP Pulse Ox 98.0 F 51 L 18 101/58 88 02/21/20 03:33 02/21/20 03:33 02/21/20 03:33 02/21/20 03:33 02/21/20 03:33 HEART Score - HEART Score Troponin: Troponin T 0.066 ng/mL (0.00-0.029) H D 02/15/20 07:45 Results - Labs CBC & Chem 7: 02/21/20 04:24 02/21/20 04:24 Labs: Laboratory Last Values WBC 7.2 K/mm3 (4.5-11.0) 02/21/20 04:24 RBC 3.14 M/mm3 (3.65-5.03) L 02/21/20 04:24 Hgb 7.9 gm/dl (10.1-14.3) L 02/21/20 04:24 Hct 25.2 % (30.3-42.9) L 02/21/20 04:24 MCV 80 fl (79-97) 02/21/20 04:24 MCH 25 pg (28-32) L 02/21/20 04:24 MCHC 32 % (30-34) 02/21/20 04:24 RDW 19.8 % (13.2-15.2) H 02/21/20 04:24 Plt Count 222 K/mm3 (140-440) 02/21/20 04:24 Lymph % (Auto) 9.3 % (13.4-35.0) L 02/17/20 16:26 [place] % (Auto) 3.4 % (0.0-7.3) 02/17/20 16:26 Eos % (Auto) 1.9 % (0.0-4.3) 02/17/20 16:26 Baso % (Auto) 1.1 % (0.0-1.8) 02/17/20 16:26 Lymph # 0.8 K/mm3 (1.2-5.4) L 02/17/20 16:26 [place] # 0.3 K/mm3 (0.0-0.8) 02/17/20 16:26 Eos # 0.2 K/mm3 (0.0-0.4) 02/17/20 16:26 Baso # 0.1 K/mm3 (0.0-0.1) 02/17/20 16:26 Seg Neutrophils % 84.3 % (40.0-70.0) H 02/17/20 16:26 Seg Neutrophils # 7.2 K/mm3 (1.8-7.7) 02/17/20 16:26 PT 15.4 Sec. (12.2-14.9) H 02/21/20 04:24 INR 1.25 (0.87-1.13) H 02/21/20 04:24 Sodium 137 mmol/L (137-145) 02/21/20 04:24 Potassium 3.8 mmol/L (3.6-5.0) 02/21/20 04:24 Chloride 92.9 mmol/L (98-107) L 02/21/20 04:24 Carbon Dioxide 25 mmol/L (22-30) 02/21/20 04:24 Anion Gap 23 mmol/L 02/21/20 04:24 BUN 130 mg/dL (7-17) H 02/21/20 04:24 Creatinine 6.2 mg/dL (0.7-1.2) H 02/21/20 04:24 Estimated GFR 8 ml/min 02/21/20 04:24 BUN/Creatinine Ratio 21 % 02/21/20 04:24 Glucose 96 mg/dL (65-100) 02/21/20 04:24 Calcium 9.1 mg/dL (8.4-10.2) 02/21/20 04:24 Phosphorus 5.70 mg/dL (2.5-4.5) H 02/19/20 06:10 Total Bilirubin 0.70 mg/dL (0.1-1.2) 02/21/20 04:24 AST 15 units/L (5-40) 02/21/20 04:24 ALT 27 units/L (7-56) 02/21/20 04:24 Alkaline Phosphatase 105 units/L (35-129) 02/21/20 04:24 Troponin T 0.066 ng/mL (0.00-0.029) H D 02/15/20 07:45 Total Protein 6.9 g/dL (6.3-8.2) 02/21/20 04:24 Albumin 3.0 g/dL (3.9-5) L 02/21/20 04:24 Albumin/Globulin Ratio 0.8 % 02/21/20 04:24 Triglycerides 82 mg/dL (2-149) 02/14/20 20:06 Cholesterol 118 mg/dL (50-199) 02/14/20 20:06 LDL Cholesterol Direct 72 mg/dL (50-130) 02/14/20 20:06 HDL Cholesterol 33 mg/dL (40-59) L 02/14/20 20:06 Cholesterol/HDL Ratio 3.57 % 02/14/20 20:06 Hepatitis A IgM Ab -1 (NonReactive) 02/18/20 17:13 Hep Bs Antigen Non-reactive (Negative) 02/18/20 17:13 Hep B Core IgM Ab Non-reactive (NonReactive) 02/18/20 17:13 Hepatitis C Antibody Non-reactive (NonReactive) 02/18/20 17:13 Martinez/IV: Voiding Method External Female Catheter IV Catheter Type [Left Hand] INT / Saline Lock Active Medications - Current Medications Current Medications: Generic Name Dose Route Start Last Admin Trade Name Freq PRN Reason Stop Dose Admin Acetaminophen 650 mg 02/14/20 22:10 Tylenol PO Q4H PRN Pain MILD(1-3)/Fever >100.5/ESQUIVEL Aspirin 325 mg 02/15/20 10:00 02/20/20 10:00 Ecotrin PO Not Given QDAY [facility] Diltiazem HCl 90 mg 02/15/20 10:00 02/21/20 05:15 Cardizem PO Not Given Q8HR [facility] Epoetin Tim[place] 20,000 unit 02/18/20 12:47 Procrit IV KIMMIE PRN hemodialysis Ferrous Sulfate 325 mg 02/20/20 10:00 02/20/20 21:59 Feosol PO Not Given BID [facility] Guaifenesin 200 mg 02/17/20 15:12 02/17/20 15:24 Robitussin PO 200 mg Q4H PRN Administration Cough Magnesium Hydroxide 30 ml 02/14/20 22:10 Milk Of Magnesia PO Q4H PRN Constipation Morphine Sulfate 2 mg 02/14/20 22:10 Morphine IV Q5MIN PRN Chest Pain unrelieved by NTG Nitroglycerin 0.4 mg 02/14/20 22:10 Nitrostat SL Q5M PRN Chest Pain Ondansetron HCl 4 mg 02/14/20 22:10 Zofran IV Q8H PRN Nausea And Vomiting Sodium Chloride 10 ml 02/15/20 10:00 02/20/20 21:59 Sodium Chloride Flush Syringe 10 Ml IV Not Given BID [facility] Sodium Chloride 10 ml 02/14/20 22:10 Sodium Chloride Flush Syringe 10 Ml IV PRN PRN LINE FLUSH Warfarin Sodium 7.5 mg 02/20/20 17:00 02/20/20 18:44 Coumadin PO Not Given 1700 [facility] Protocol Nutrition/Malnutrition Assess - Dietary Evaluation Nutrition/Malnutrition Findings: Nutrition Notes Start: 02/15/20 14:25 Freq: Status: Active Protocol: Document 02/18/20 14:08 LM (Rec: 02/18/20 14:10 LM [email or web address]) Nutrition Notes Initial or Follow up Reassessment Current Diagnosis Acute Kidney Injury,CKD(stage I-IV),Decubitus(Pressure Ulcer ),Heart Failure Other Pertinent Diagnosis chest pain, afib, sacral PU Current Diet cardiac Labs/Tests BUN 24 Cr 6.2 Pertinent Medications reviewed Height 5 ft 8 in Weight 146.057 kg [place] Body Weight (kg) 63.63 BMI 48.9 Weight Status Morbidly Obese Subjective/Other Information Pt does not like the food provided and does not like ONS . Food preferences taken. Burn Absent Trauma Absent Current % PO Negligible Minimum of two criteria No physical signs of malnutrition #1 Nutrition Diagnosis Increased nutrient needs ( specify in comment below) Diagnosis Progress(for reassessment Continues documentation) Is patient on ventilator? No Is Patient Ambulatory and/or Out of Bed No REE-([place]-confined to bed) [phone] Calculation Used for Recommendations Kcal/kg Additional Notes Protein: 131-158g (1.25-1.5g/ kg using AdjBW 105kg) Fluid: 1 ml/kcal or per MD Nutrition Intervention Change Diet Order: continue cardiac Goal #1 meet at least 75% of energy and protein needs Anticipated Discharge Needs: cardiac Follow-Up By: 02/20/20 Additional Comments F/U for intakes
[2020-02-20] MEDS: ASPIRIN EC 325 MG TAB PO SCH ×2 (10:00→11:11)
--- NOTE | 2020-02-20 10:32 | Progress Note ---
Assessment and Plan Pt refused permacath placement yesterday. States she is still "thinking about it". Currently stable cardiac status. Pt is noted to be persistently anemic, however, no overt s/s anemia, suspect anemia of CKD. Recommend resumption of coumadin with tx INR 2-3 if no plans for surgery/permacath placement in the near future. Nothing further to add from cardiac perspective at this time. Will sign off. Recommend pt follow up with Dr. Lamb at [place] within 1 week of hospital discharge for f/u and INR check. Pt verbalizes understanding. Pt seen in conjunction with Dr. Oreilly who agrees with the assessment and plan of care. - Patient Problems (1) Atypical chest pain Current Visit: Yes Status: Resolved (2) NSTEMI (non-ST elevated myocardial infarction) Current Visit: Yes Status: Acute Plan to address problem: Type 2 (3) Paroxysmal atrial fibrillation with RVR Current Visit: Yes Status: Acute (4) Subtherapeutic international normalized ratio (INR) Current Visit: Yes Status: Acute (5) Acute on chronic renal failure Current Visit: Yes Status: Acute Qualifiers: Qualified Code(s): N17.9 - Acute kidney failure, unspecified; N18.9 - Chronic kidney disease, unspecified (6) Anemia Current Visit: Yes Status: Acute (7) Chronic heart failure with preserved ejection fraction (HFpEF) Current Visit: Yes Status: Chronic (8) Hx of cardiomyopathy Current Visit: Yes Status: Resolved (9) ICD (implantable cardioverter-defibrillator) in place Current Visit: Yes Status: Chronic (10) HTN (hypertension) Current Visit: Yes Status: Chronic Qualifiers: Hypertension type: essential hypertension Qualified Code(s): I10 - Essential (primary) hypertension (11) Morbid obesity Current Visit: Yes Status: Chronic Subjective Date of service: 02/20/20 Principal diagnosis: Afib with RVR, CKD/end-stage renal disease Interval history: pt resting in bed, no current cardiac complaints. in AFib on telemetry, HR 90s, with frequent isolated PVCs and some bigeminy/trigeminy overnight. Objective Last Vital Signs Temp 97.9 F 02/20/20 04:09 Pulse 41 L 02/20/20 04:09 Resp 18 02/20/20 04:09 BP 102/58 07/15/20 06:08 Pulse Ox 98 02/20/20 04:09 - Physical Examination General: No Apparent Distress HEENT: Positive: EOMI, Normocephaly, Mucus Membranes Moist Neck: Positive: neck supple Cardiac: Positive: irregularly irregular, S1/S2 Lungs: Positive: Decreased Breath Sounds Neuro: Positive: Grossly Intact Abdomen: Positive: Soft, Active Bowel Sounds. Negative: Tender, Distended Skin: Negative: Rash, Wound Musculoskeletal: No Fluid Collection, No Pain, Normal Range of Motion Extremities: Present: upper extr. pulses, lower extr. pulses. Absent: edema, +1 Edema (chronic edema noted.) - Labs and Meds Coagulation 02/20/20 Range/Units 04:09 PT 14.7 (12.2-14.9) Sec. INR 1.17 H (0.87-1.13) CBC 02/20/20 Range/Units 04:09 WBC 7.8 (4.5-11.0) K/mm3 RBC 3.26 L (3.65-5.03) M/mm3 Hgb 7.9 L (10.1-14.3) gm/dl Hct 26.5 L (30.3-42.9) % Plt Count 251 (140-440) K/mm3 - Imaging and Cardiology EKG: report reviewed, image reviewed Echo: report reviewed (11/2019: EF 55-60%; mild-mod LVH; mod MR) - EKG Ventricular dysrhythmias: ventricular premature com
[2020-02-20] MEDS: FERROUS SULFATE 325 MG TAB PO SCH ×2 (11:11→21:59)
--- NOTE | 2020-02-20 14:34 | Progress Note ---
Assessment and Plan End Stage Renal Disease: -Patient refused perm-cath placement yesterday, states she is thinking about it today -Reviewed risks of refusing dialysis to include -Patient likely has ESRD at this point -Patient needs hemodialysis when agreeable -Recheck renal labs in a.m -Fluid restriction of 1 liter per day -Dialysis diet -Obtain daily weights -Monitor I/O's -May need to consider palliative/hospice care if continues to refuse hemodialysis -Will reassess again tomorrow -Plan of care reviewed with Dr. Menchaca Acute chest pain Atrial fibrillation with RVR -On oral Cardizem -Coumadin held in the setting of anemia per Cardiology Hypertension: -Controlled Anemia: -Coumadin on hold per Cardiology -LESLIE if start HD -Monitor H/H Subjective Date of service: 02/20/20 Principal diagnosis: Afib with RVR, CKD/end-stage renal disease Interval history: Patient seen lying in bed. States she is still thinking about decision to have perm-cath placed after refusing it yesterday Objective - Vital Signs Vital signs: Vital Signs - 12hr 02/20/20 02/20/20 04:09 06:08 Temperature 97.9 F Pulse Rate 41 L Respiratory 18 Rate Blood Pressure 102/64 102/58 O2 Sat by Pulse 98 Oximetry - General Appearance General appearance: well-developed, obese, fatigue EENT: ATNC, PERRL, hearing intact, vision intact Neck: no JVD, supple Respiratory: Present: Decreased Breath Sounds Cardiology: S1S2 Gastrointestinal: normoactive bowel sounds, obese Integumentary: warm and dry, chronic venous stasis Neurologic: alert and oriented x3 Musculoskeletal: joint swelling, decreased ROM, other (positive edema) - Lab 02/20/20 04:09 02/19/20 06:10 Most recent lab results Calcium 9.0 mg/dL (8.4-10.2) 02/19/20 06:10 Phosphorus 5.70 mg/dL (2.5-4.5) H 02/19/20 06:10 Medications & Allergies - Medications Allergies/Adverse Reactions: Allergies No Known Allergies Allergy (Unverified 08/09/13 15:10) Home Medications: Home Medications Medication Instructions Recorded Confirmed Last Taken Type ISOSORBIDE MONOnitrate [Imdur ER] 10 mg PO BID 11/21/19 02/16/20 12/07/19 22:00 History Nitroglycerin [Nitrostat] 0.4 mg SL Q5M PRN 11/21/19 02/16/20 Unknown History Warfarin [Coumadin] 7.5 mg PO QDAY 11/22/19 02/16/20 12/07/19 History Lidocaine Topical 5% [Xylocaine 1 applic TP DAILY #1 tube 11/27/19 02/16/20 12/07/19 Rx Topical 5%] Amiodarone [Cordarone 200 MG TAB] 200 mg PO QDAY 12/02/19 02/16/20 12/07/19 10:00 History AtorvaSTATin [Lipitor] 40 mg PO QHS 12/02/19 02/16/20 12/07/19 22:00 History Cyanocobalamin (Vitamin B-12) 1,000 mcg PO QDAY 12/02/19 02/16/20 12/07/19 10:00 History [Vitamin B-12] HYDROcodone/ACETAMINOPHEN [[place] 1 each PO Q8H 12/02/19 02/16/20 Unknown History 5/325 Tablet] Furosemide [Lasix TAB] 40 mg PO QDAY #30 tablet 12/07/19 02/16/20 12/07/19 10:00 Rx Aspirin [Aspirin BABY CHEW TAB] 81 mg PO QDAY 12/18/19 02/16/20 12/07/19 History dilTIAZem [Cardizem] 60 mg PO Q8HR #90 tablet 01/08/20 02/16/20 Unknown Rx Active Medications: Generic Name Dose Route Start Last Admin Trade Name Freq PRN Reason Stop Dose Admin Acetaminophen 650 mg 02/14/20 22:10 Tylenol PO Q4H PRN Pain MILD(1-3)/Fever >100.5/ESQUIVEL Aspirin 325 mg 02/15/20 10:00 02/20/20 10:00 Ecotrin PO Not Given QDAY BHAVANI Diltiazem HCl 90 mg 02/15/20 10:00 02/20/20 14:27 Cardizem PO Not Given Q8HR BHAVANI Epoetin [place] 20,000 unit 02/18/20 12:47 Procrit IV KIMMIE PRN hemodialysis Ferrous Sulfate 325 mg 02/20/20 10:00 02/20/20 11:11 Feosol PO 325 mg BID [facility] Administration Guaifenesin 200 mg 02/17/20 15:12 02/17/20 15:24 Robitussin PO 200 mg Q4H PRN Administration Cough Magnesium Hydroxide 30 ml 02/14/20 22:10 Milk Of Magnesia PO Q4H PRN Constipation Morphine Sulfate 2 mg 02/14/20 22:10 Morphine IV Q5MIN PRN Chest Pain unrelieved by NTG Nitroglycerin 0.4 mg 02/14/20 22:10 Nitrostat SL Q5M PRN Chest Pain Ondansetron HCl 4 mg 02/14/20 22:10 Zofran IV Q8H PRN Nausea And Vomiting Sodium Chloride 10 ml 02/15/20 10:00 02/20/20 11:11 Sodium Chloride Flush Syringe 10 Ml IV 10 ml BID BHAVANI Administration Sodium Chloride 10 ml 02/14/20 22:10 Sodium Chloride Flush Syringe 10 Ml IV PRN PRN LINE FLUSH
[2020-02-20] MEDS: WARFARIN 7.5 MG TAB PO SCH (18:44)
[2020-02-21 05:15] LABS: Hematocrit 25.2 % (30.3-42.9); Hemoglobin 7.9 gm/dl (10.1-14.3); Mean Corpuscular HGB Conc 32 % (30-34); Mean Corpuscular Volume 80 fl (79-97); Platelet Count 222 K/mm3 (140-440); Red Blood Count 3.14 M/mm3 (3.65-5.03); Red Cell Distribution Width 19.8 % (13.2-15.2)
[2020-02-21 05:30] LABS: INR 1.25 (0.87-1.13)
[2020-02-21 05:38] LABS: Calcium 9.1 mg/dL (8.4-10.2)
--- NOTE | 2020-02-21 08:32 | Progress Note ---
<AUGUSTOJUAN ANTONIO ChaseLeticia - Last Filed: 02/21/20 15:56> Assessment and Plan Assessment and plan: 69-year-old female with of afib, HTN, HFpEF, obesity and CKD presented with midsternal chest pressure and SOB. She was found to be in afib with RVR s/p IV cardizem and cardiology was consulted. Nephrology was consulted and planned for HD. However she has been refusing placement of permcath, cardiology following, warfarin restarted for afib after continual refusal for permcath. This morning she is agreeable to placement of vascath, vascular surgery consulted, and HD planned for today, - Patient Problems (1) Atrial fibrillation with RVR Current Visit: Yes Status: Acute Plan to address problem: - 02/18 Coumadin held r/t anemia - Unable to complete stress test because the patient cannot lie still - Troponin may be elevated in setting of CKD - Anticougulation restarted, pharmacy to follow for dosing adjustments - Cardizem for rate control - ASA - Cardiology consulted and signed off now - BP monitoring per protocol - monitoring and evaluation advisor in place (2) Acute on chronic renal failure Current Visit: Yes Status: Acute Qualifiers: Qualified Code(s): N17.9 - Acute kidney failure, unspecified; N18.9 - Chronic kidney disease, unspecified Plan to address problem: - Trend BUN and Cr - Renal diet - Nephrology was consulted for HD ( baseline Cr 2.1 in January which is better today at 6.2 from yesterday at 6.6) - Agreed to permcath placement today- Dr. David consulted - 1 liter fluid restriction - Epogen and Iron added (3) Chronic heart failure with preserved ejection fraction (HFpEF) Current Visit: Yes Status: Chronic (4) HTN (hypertension) Current Visit: Yes Status: Chronic Qualifiers: Hypertension type: essential hypertension Qualified Code(s): I10 - Essential (primary) hypertension Plan to address problem: - continue current regimen of CCB - BP monitoring per protocol (5) Anemia Current Visit: Yes Status: Acute Qualifiers: Anemia type: due to chronic kidney disease Plan to address problem: - Epogen with HD - Iron supplement (6) DVT prophylaxis Current Visit: No Status: Acute Plan to address problem: - SCDs while in bed - Systemic anticoagulation with warfarin resumed History Interval history: HD 8: 69-year-old female with of afib, HTN, HFpEF, obesity and CKD presented with midsternal chest pressure and SOB. She was found to be in afib with RVR s/p IV cardizem and cardiology was consulted. Nephrology was consulted and planned for HD. However she has been refusing placement of permcath. This morning she is agreeable for the placement of permcath and HD. Vascular surgery consulted. HD 2: Symptomatically better, Admitted for atrial fibrillation with RVR and chest pain HD 3: Stress test could not be done because of patient not being able to lie still HD 4: Patient has epistaxis s/p Right nasal packing HD 5: Epistaxis resolved, For permcath tomorrow HD 6: Refused, Permcath, wants to re-evaluate in am. case management to work on dialysis chair, will also attempt to speak with family if patient permits. Morbid Obesity: weight loss counselling provided for 15 mins HD 7: Warfarin resumed as patient continues to refuse permcath placement for HD, pharmacy to follow. Hospitalist Physical - Constitutional Vitals: Temp Pulse Resp BP Pulse Ox 98.0 F 51 L 18 101/58 88 02/21/20 03:33 02/21/20 03:33 02/21/20 03:33 02/21/20 03:33 02/21/20 03:33 General appearance: Present: no acute distress, well-nourished, obese - EENT Eyes: Present: PERRL, EOM intact ENT: hearing intact, clear oral mucosa - Neck Neck: Present: supple, normal ROM - Respiratory Respiratory effort: normal Respiratory: bilateral: diminished - Cardiovascular Rhythm: regular Heart Sounds: Present: S1 & S2. Absent: systolic murmur, diastolic murmur - Extremities Extremities: no ischemia, pulses intact, pulses symmetrical, No edema Peripheral Pulses: within normal limits - Abdominal General gastrointestinal: soft, non-tender, normal bowel sounds - Integumentary Integumentary: Present: warm, dry - Psychiatric Psychiatric: cooperative - Neurologic Neurologic: CNII-XII intact, no focal deficits, moves all extremities - Allied Health Allied health notes reviewed: nursing HEART Score - HEART Score EKG: Non-specific Age: > 65 Risk factors: > 3 risk factors or hx of atherosclerotic disease Troponin: Troponin T 0.066 ng/mL (0.00-0.029) H D 02/15/20 07:45 Troponin: < normal limit - Critical Actions Critical Actions: 4-6 pts:12-16.6% risk of adverse cardiac event. Should be admitted Results - Labs CBC & Chem 7: 02/21/20 04:24 02/21/20 04:24 Labs: Laboratory Last Values WBC 7.2 K/mm3 (4.5-11.0) 02/21/20 04:24 RBC 3.14 M/mm3 (3.65-5.03) L 02/21/20 04:24 Hgb 7.9 gm/dl (10.1-14.3) L 02/21/20 04:24 Hct 25.2 % (30.3-42.9) L 02/21/20 04:24 MCV 80 fl (79-97) 02/21/20 04:24 MCH 25 pg (28-32) L 02/21/20 04:24 MCHC 32 % (30-34) 02/21/20 04:24 RDW 19.8 % (13.2-15.2) H 02/21/20 04:24 Plt Count 222 K/mm3 (140-440) 02/21/20 04:24 Lymph % (Auto) 9.3 % (13.4-35.0) L 02/17/20 16:26 Ransom % (Auto) 3.4 % (0.0-7.3) 02/17/20 16:26 Eos % (Auto) 1.9 % (0.0-4.3) 02/17/20 16:26 Baso % (Auto) 1.1 % (0.0-1.8) 02/17/20 16:26 Lymph # 0.8 K/mm3 (1.2-5.4) L 02/17/20 16:26 Ransom # 0.3 K/mm3 (0.0-0.8) 02/17/20 16:26 Eos # 0.2 K/mm3 (0.0-0.4) 02/17/20 16: Baso # 0.1 K/mm3 (0.0-0.1) 02/17/20 16:26 Seg Neutrophils % 84.3 % (40.0-70.0) H 02/17/20 16:26 Seg Neutrophils # 7.2 K/mm3 (1.8-7.7) 02/17/20 16:26 PT 15.4 Sec. (12.2-14.9) H 02/21/20 04:24 INR 1.25 (0.87-1.13) H 02/21/20 04:24 Sodium 137 mmol/L (137-145) 02/21/20 04:24 Potassium 3.8 mmol/L (3.6-5.0) 02/21/20 04:24 Chloride 92.9 mmol/L (98-107) L 02/21/20 04:24 Carbon Dioxide 25 mmol/L (22-30) 02/21/20 04:24 Anion Gap 23 mmol/L 02/21/20 04:24 BUN 130 mg/dL (7-17) H 02/21/20 04:24 Creatinine 6.2 mg/dL (0.7-1.2) H 02/21/20 04:24 Estimated GFR 8 ml/min 02/21/20 04:24 BUN/Creatinine Ratio 21 % 02/21/20 04:24 Glucose 96 mg/dL (65-100) 02/21/20 04:24 Calcium 9.1 mg/dL (8.4-10.2) 02/21/20 04:24 Phosphorus 5.70 mg/dL (2.5-4.5) H 02/19/20 06:10 Total Bilirubin 0.70 mg/dL (0.1-1.2) 02/21/20 04:24 AST 15 units/L (5-40) 02/21/20 04:24 ALT 27 units/L (7-56) 02/21/20 04:24 Alkaline Phosphatase 105 units/L (35-129) 02/21/20 04:24 Troponin T 0.066 ng/mL (0.00-0.029) H D 02/15/20 07:45 Total Protein 6.9 g/dL (6.3-8.2) 02/21/20 04:24 Albumin 3.0 g/dL (3.9-5) L 02/21/20 04:24 Albumin/Globulin Ratio 0.8 % 02/21/20 04:24 Triglycerides 82 mg/dL (2-149) 02/14/20 20:06 Cholesterol 118 mg/dL (50-199) 02/14/20 20:06 LDL Cholesterol Direct 72 mg/dL (50-130) 02/14/20 20:06 HDL Cholesterol 33 mg/dL (40-59) L 02/14/20 20:06 Cholesterol/HDL Ratio 3.57 % 02/14/20 20:06 Hepatitis A IgM Ab -1 (NonReactive) 02/18/20 17:13 Hep Bs Antigen Non-reactive (Negative) 02/18/20 17:13 Hep B Core IgM Ab Non-reactive (NonReactive) 02/18/20 17:13 Hepatitis C Antibody Non-reactive (NonReactive) 02/18/20 17:13 Martinez/IV: Voiding Method External Female Catheter IV Catheter Type [Left Hand] INT / Saline Lock Active Medications - Current Medications Current Medications: Generic Name Dose Route Start Last Admin Trade Name Freq PRN Reason Stop Dose Admin Acetaminophen 650 mg 02/14/20 22:10 Tylenol PO Q4H PRN Pain MILD(1-3)/Fever >100.5/ESQUIVEL Aspirin 325 mg 02/15/20 10:00 02/20/20 10:00 Ecotrin PO Not Given QDAY [facility] Diltiazem HCl 90 mg 02/15/20 10:00 02/21/20 05:15 Cardizem PO Not Given Q8HR [facility] Epoetin Timoteo 20,000 unit 02/18/20 12:47 Procrit IV KIMMIE PRN hemodialysis Ferrous Sulfate 325 mg 02/20/20 10:00 02/20/20 21:59 Feosol PO Not Given BID [facility] Guaifenesin 200 mg 02/17/20 15:12 02/17/20 15:24 Robitussin PO 200 mg Q4H PRN Administration Cough Magnesium Hydroxide 30 ml 02/14/20 22:10 Milk Of Magnesia PO Q4H PRN Constipation Morphine Sulfate 2 mg 02/14/20 22:10 Morphine IV Q5MIN PRN Chest Pain unrelieved by NTG Nitroglycerin 0.4 mg 02/14/20 22:10 Nitrostat SL Q5M PRN Chest Pain Ondansetron HCl 4 mg 02/14/20 22:10 Zofran IV Q8H PRN Nausea And Vomiting Sodium Chloride 10 ml 02/15/20 10:00 02/20/20 21:59 Sodium Chloride Flush Syringe 10 Ml IV Not Given BID [facility] Sodium Chloride 10 ml 02/14/20 22:10 Sodium Chloride Flush Syringe 10 Ml IV PRN PRN LINE FLUSH Warfarin Sodium 7.5 mg 02/20/20 17:00 02/20/20 18:44 Coumadin PO Not Given 1700 [facility] Protocol Nutrition/Malnutrition Assess - Dietary Evaluation Nutrition/Malnutrition Findings: Nutrition Notes Start: 02/15/20 14:25 Freq: Status: Active Protocol: Document 02/18/20 14:08 LM (Rec: 02/18/20 14:10 LM [email or web address]) Nutrition Notes Initial or Follow up Reassessment Current Diagnosis Acute Kidney Injury,CKD(stage I-IV),Decubitus(Pressure Ulcer ),Heart Failure Other Pertinent Diagnosis chest pain, afib, sacral PU Current Diet cardiac Labs/Tests BUN 24 Cr 6.2 Pertinent Medications reviewed Height 5 ft 8 in Weight 146.057 kg [place] Body Weight (kg) 63.63 BMI 48.9 Weight Status Morbidly Obese Subjective/Other Information Pt does not like the food provided and does not like ONS . Food preferences taken. Burn Absent Trauma Absent Current % PO Negligible Minimum of two criteria No physical signs of malnutrition #1 Nutrition Diagnosis Increased nutrient needs ( specify in comment below) Diagnosis Progress(for reassessment Continues documentation) Is patient on ventilator? No Is Patient Ambulatory and/or Out of Bed No [facility] 0023.074 Calculation Used for Recommendations Kcal/kg Additional Notes Protein: 131-158g (1.25-1.5g/ kg using AdjBW 105kg) Fluid: 1 ml/kcal or per MD Nutrition Intervention Change Diet Order: continue cardiac Goal #1 meet at least 75% of energy and protein needs Anticipated Discharge Needs: cardiac Follow-Up By: 02/21/20 Additional Comments F/U for intakes <TERESITA BOONE - Last Filed: 02/21/20 18:41> Assessment and Plan Assessment and plan: I saw and evaluated the patient. I agree with the findings and the plan of care as documented in the Nurse Practitioner's~note, with the following corrections and additions. Patient today was agreeable and proceeded to obtain permcath for dialysis access. covid testing for placement ordered Hospitalist Physical - Constitutional Vitals: Temp Pulse Resp BP Pulse Ox 98.2 F 78 20 127/72 2 L 07/16/20 17:45 02/21/20 18:16 02/21/20 17:45 02/21/20 18:16 02/21/20 17:45 HEART Score - HEART Score Troponin: Troponin T 0.066 ng/mL (0.00-0.029) H D 02/15/20 07:45 Results - Labs CBC & Chem 7: 02/21/20 04:24 02/21/20 04:24 Labs: Laboratory Last Values WBC 7.2 K/mm3 (4.5-11.0) 02/21/20 04:24 RBC 3.14 M/mm3 (3.65-5.03) L 02/21/20 04:24 Hgb 7.9 gm/dl (10.1-14.3) L 02/21/20 04:24 Hct 25.2 % (30.3-42.9) L 02/21/20 04:24 MCV 80 fl (79-97) 02/21/20 04:24 MCH 25 pg (28-32) L 02/21/20 04:24 MCHC 32 % (30-34) 02/21/20 04:24 RDW 19.8 % (13.2-15.2) H 02/21/20 04:24 Plt Count 222 K/mm3 (140-440) 02/21/20 04:24 Lymph % (Auto) 9.3 % (13.4-35.0) L 02/17/20 16:26 Ransom % (Auto) 3.4 % (0.0-7.3) 02/17/20 16:26 Eos % (Auto) 1.9 % (0.0-4.3) 02/17/20 16:26 Baso % (Auto) 1.1 % (0.0-1.8) 02/17/20 16:26 Lymph # 0.8 K/mm3 (1.2-5.4) L 02/17/20 16:26 Ransom # 0.3 K/mm3 (0.0-0.8) 02/17/20 16:26 Eos # 0.2 K/mm3 (0.0-0.4) 02/17/20 16:26 Baso # 0.1 K/mm3 (0.0-0.1) 02/17/20 16:26 Seg Neutrophils % 84.3 % (40.0-70.0) H 02/17/20 16:26 Seg Neutrophils # 7.2 K/mm3 (1.8-7.7) 02/17/20 16:26 PT 15.4 Sec. (12.2-14.9) H 02/21/20 04:24 INR 1.25 (0.87-1.13) H 02/21/20 04:24 Sodium 137 mmol/L (137-145) 02/21/20 04:24 Potassium 3.8 mmol/L (3.6-5.0) 02/21/20 04:24 Chloride 92.9 mmol/L (98-107) L 02/21/20 04:24 Carbon Dioxide 25 mmol/L (22-30) 02/21/20 04:24 Anion Gap 23 mmol/L 02/21/20 04:24 BUN 130 mg/dL (7-17) H 02/21/20 04:24 Creatinine 6.2 mg/dL (0.7-1.2) H 02/21/20 04:24 Estimated GFR 8 ml/min 02/21/20 04:24 BUN/Creatinine Ratio 21 % 02/21/20 04:24 Glucose 96 mg/dL (65-100) 02/21/20 04:24 Calcium 9.1 mg/dL (8.4-10.2) 02/21/20 04:24 Phosphorus 4.90 mg/dL (2.5-4.5) H 02/21/20 12:28 Total Bilirubin 0.70 mg/dL (0.1-1.2) 02/21/20 04:24 AST 15 units/L (5-40) 02/21/20 04:24 ALT 27 units/L (7-56) 02/21/20 04:24 Alkaline Phosphatase 105 units/L (35-129) 02/21/20 04:24 Troponin T 0.066 ng/mL (0.00-0.029) H D 02/15/20 07:45 Total Protein 6.9 g/dL (6.3-8.2) 02/21/20 04:24 Albumin 3.0 g/dL (3.9-5) L 02/21/20 04:24 Albumin/Globulin Ratio 0.8 % 02/21/20 04:24 Triglycerides 82 mg/dL (2-149) 02/14/20 20:06 Cholesterol 118 mg/dL (50-199) 02/14/20 20:06 LDL Cholesterol Direct 72 mg/dL (50-130) 02/14/20 20:06 HDL Cholesterol 33 mg/dL (40-59) L 02/14/20 20:06 Cholesterol/HDL Ratio 3.57 % 02/14/20 20:06 Hepatitis A IgM Ab -1 (NonReactive) 02/18/20 17:13 Hep Bs Antigen Non-reactive (Negative) 02/18/20 17:13 Hep B Core IgM Ab Non-reactive (NonReactive) 02/18/20 17:13 Hepatitis C Antibody Non-reactive (NonReactive) 02/18/20 17:13 Martinez/IV: Voiding Method External Female Catheter IV Catheter Type [Left Hand] INT / Saline Lock Active Medications - Current Medications Current Medications: Generic Name Dose Route Start Last Admin Trade Name Freq PRN Reason Stop Dose Admin Acetaminophen 650 mg 02/14/20 22:10 Tylenol PO Q4H PRN Pain MILD(1-3)/Fever >100.5/ESQUIVEL Aspirin 325 mg 02/15/20 10:00 02/21/20 09:28 Ecotrin PO 325 mg QDAY BHAVANI Administration Diltiazem HCl 90 mg 02/15/20 10:00 02/21/20 18:16 Cardizem PO 90 mg Q8HR BHAVANI Administration Epoetin Timoteo 20,000 unit 02/18/20 12:47 02/21/20 17:06 Procrit IV 20,000 unit KIMMIE PRN Administration hemodialysis Ferrous Sulfate 325 mg 02/20/20 10:00 02/21/20 09:28 Feosol PO 325 mg BID BHAVANI Administration Guaifenesin 200 mg 02/17/20 15:12 02/17/20 15:24 Robitussin PO 200 mg Q4H PRN Administration Cough Magnesium Hydroxide 30 ml 02/14/20 22:10 Milk Of Magnesia PO Q4H PRN Constipation Morphine Sulfate 2 mg 02/14/20 22:10 Morphine IV Q5MIN PRN Chest Pain unrelieved by NTG Nitroglycerin 0.4 mg 02/14/20 22:10 Nitrostat SL Q5M PRN Chest Pain Ondansetron HCl 4 mg 02/14/20 22:10 Zofran IV Q8H PRN Nausea And Vomiting Sodium Chloride 10 ml 02/15/20 10:00 02/21/20 09:30 Sodium Chloride Flush Syringe 10 Ml IV 10 ml BID BHAVANI Administration Sodium Chloride 10 ml 02/14/20 22:10 Sodium Chloride Flush Syringe 10 Ml IV PRN PRN LINE FLUSH Warfarin Sodium 7.5 mg 02/20/20 17:00 02/21/20 18:16 Coumadin PO 7.5 mg 1700 BHAVANI Administration Protocol Nutrition/Malnutrition Assess - Dietary Evaluation Nutrition/Malnutrition Findings: Nutrition Notes Start: 02/15/20 14:25 Freq: Status: Active Protocol: Document 02/21/20 11:13 ZHENG (Rec: 02/21/20 11:21 ZHENG [email or web address]) Nutrition Notes Initial or Follow up Reassessment Current Diagnosis Hypertension,Heart Failure Other Pertinent Diagnosis afib with RVR, acute on chronic renal failure Current Diet Renal + 1L fluid restriction Labs/Tests BUN 130 Cr 6.2 Pertinent Medications Feosol, Coumadin Height 5 ft 8 in Weight 145 kg [place] Body Weight (kg) 63.63 BMI 48.6 Weight Status Morbidly Obese Subjective/Other Information Unable to reach pt vis phone ( 11:10). DNI education not needed as pt reported familiarity with low vit K diet during a 12/10/19 dietary assessment. She consumed 75% of three meals documented yesterday. Pt has been refusing Permcath placement for HD. D/C summary written this am. Burn Absent Trauma Absent Minimum of two criteria No physical signs of malnutrition #1 Nutrition Diagnosis Increased nutrient needs ( specify in comment below) Diagnosis Progress(for reassessment Continues documentation) Is patient on ventilator? No Is Patient Ambulatory and/or Out of Bed No REE-([place]confined [facility] bed) 2444.892 Kcal/Kg value to use for calculation 13 Approximate Energy Requirements Using 1885 kcal/Kg Calculation Used for Recommendations Kcal/kg Additional Notes Pro needs 1.25-1.5g/kg adjBW: 130-156g/day Fluid needs 1L/day Nutrition Intervention Change Diet Order: Continue current diet order Goal #1 PO intake to meet at least 75% energy and pro needs Follow-Up By: 02/26/20 Additional Comments F/U: intakes, initiation of HD
[2020-02-21] MEDS: FERROUS SULFATE 325 MG TAB PO SCH ×2 (09:28→21:40)
[2020-02-21] MEDS: ASPIRIN EC 325 MG TAB PO SCH (09:28)
--- NOTE | 2020-02-21 10:13 | Discharge Summary ---
Providers - Providers Date of Admission: 02/14/20 21:31 Attending physician: TERESITA BOONE MD 02/14/20 Consult to Cardiac Rehabilitation [CONS] Routine Reason For Exam: Phase I 02/14/20 22:10 Consult to Cardiology [CONS] Routine Consulting Provider: GOLDY CABRERA Reason For Exam: AFIB WITH RVR, CHEST PAIN 02/15/20 07:09 Consult to Wound/ET Nurse [CONS] Routine Reason For Exam: wound eval 02/16/20 18:44 Consult to Physician [CONS] Routine Comment: Consulting Provider: LUCHO LUNSFORD Physician Instructions: Reason For Exam: CKD/Esrd 02/18/20 11:56 Consult to Interventional Radiology [CONS] Routine Consulting Provider: ANNABEL KIRK Reason For Exam: Perm-cath placement Place consult to:: VASCULAR Notified:: YES Phone number called:: - Was contact made?: Yes Time called:: 12:59 Comment:: DR DUMONT ALREADY AWARE MADE NOTE AT 1246 . 02/18/20 12:37 Consult to Case Management [CONS] Routine Services Needed at Discharge: Other Notified:: CERTIFIED ORTHOTIST PRACTICE MANAGER Comment:: Outpatient HD placement to [facility]-[address] [place] [address] Hospitalization Condition: Stable Hospital course: 69-year-old female with known history of atrial fibrillation, hypertension, CHF and chronic kidney disease. Presenting to the emergency room today complaining of midsternal chest pressure and shortness of breath. Symptoms were said to have started earlier this evening. She has had some mild cough which is nonproductive. There is no no relieving or exacerbating factor for chest pain. Has been no radiation. She denies any fever or chills, no nausea vomiting, no diarrhea, no headache or dizziness. She denies any recent travel and no sick contacts. Upon arrival in the emergency room patient was found to be in atrial fibrillation with RVR. She had a dose of IV Cardizem with some improvement in heart rate. Not on dialysis A. fib with rate controlled Day #2 Symptomatically better Admitted for atrial fibrillation with RVR and chest pain Day #3 Stress test could not be done because of patient not being able to lie still Day #4 Patient has epistaxis Right nasal packing was done Day #5 Epistaxis resolved For permacath tomorrow day 6: Refused, Permacth, wants to re-evaluate in am. case management to work on dialysis chair, will also attempt to speak with family if patient permits. Morbid Obesity: weightloss counselling provided for 15 mins (1) NSTEMI Current Visit: Yes Status: Acute Plan to address problem: Stress test could not be done Troponins elevated Stress could not be done because patient was not able to lie still Troponins elevated because of the kidney failure Will defer to cardiology order stress test' (2) Atrial fibrillation with RVR Current Visit: Yes Status: Acute Plan to address problem: Patient had a dose of Cardizem upon arrival in the emergency room. Rate is better controlled. Patient has known history of atrial fibrillation and has been on anticoagulation. Patient follows up with a engineering inspection assistant at [facility]. Cardiology consult Rate better controlled (3) Acute on chronic renal failure Current Visit: Yes Status: Acute Qualifiers: Acute renal failure type: unspecified Chronic kidney disease stage: unspecified stage Qualified Code(s): N17.9 - Acute kidney failure, unspecif ied; N18.9 - Chronic kidney disease, unspecified Plan to address problem: Will monitor BUN and creatinine. BUN/creatinine high May need dialysis Nephrology consult initiated Patient apparently had dialysis in the past Baseline creatinine was 2.1 in January which has gone up to 6.3 Patient may end up on dialysis (4) Subtherapeutic international normalized ratio (INR) Current Visit: Yes Status: Acute Plan to address problem: Cardiology will like Eliquis changed to Coumadin. This was done prior to discharge therapeutic goal of 2-3. Patient going to the facility will continue to monitor INR. (5) Anemia of chronic disease Monitor closely, Start on iron supplementation (6) DVT prophylaxis Current Visit: No Status: Acute Plan to address problem: Patient currently on anticoagulation. INR is subtherapeutic. (7) Full code status Current Visit: Yes Status: Acute Disposition: DC/TX-03 [facility] CERT Exam - Physical Exam Narrative exam: VITAL SIGNS: Reviewed. GENERAL: The patient appears normally developed, obese, Vital signs as documented. HEAD: No signs of head trauma. EYES: Pupils are equal. Extraocular motions intact. EARS: Hearing grossly intact. MOUTH: Oropharynx is normal. NECK: No adenopathy, no JVD. CHEST: Chest with clear breath sounds bilaterally. No wheezes, rales, or rhonchi. CARDIAC: Regular rate and rhythm. S1 and S2, without murmurs, gallops, or rubs. VASCULAR: No Edema. Peripheral pulses normal and equal in all extremities. ABDOMEN: Soft, non tender and non distended. No rebound or guarding, and no masses palpated. Bowel Sounds normal. MUSCULOSKELETAL: Good range of motion of all major joints. Extremities without clubbing, cyanosis or edema. NEUROLOGIC EXAM: Alert and oriented x 3 No focal sensory or strength deficits. Speech normal. Follows commands. PSYCHIATRIC: Mood normal. SKIN: detial exam as documented in skin assessment - Constitutional Vitals: Temp Pulse Resp BP Pulse Ox 98.0 F 64 18 101/58 98 02/21/20 03:33 02/21/20 08:00 02/21/20 08:00 02/21/20 03:33 02/21/20 08:00 Plan Activity: advance as tolerated, fall precautions Diet: diabetic, renal Follow up with: RENETTA VILLARREAL [Other] - 7 Days LUCHO LUNSFORD MD [Staff Physician] - 7 Days BELLE BECKER MD [Referring] - 7 Days Forms: Warfarin Discharge Instruction Prescriptions: dilTIAZem [Cardizem] 90 mg PO Q8HR #90 tablet Ferrous Sulfate [Feosol 325 MG tab] 325 mg PO BID #60 tablet Magnesium Hydroxide [Milk of Magnesia] 30 ml PO Q4H PRN #20 oral.liqd PRN Reason: Constipation Midodrine [Proamatine] 5 mg PO TID@0800,1200,1600 #90 tablet
--- NOTE | 2020-02-21 13:15 | Progress Note ---
Assessment and Plan End Stage Renal Disease: -now agreeable with HD, first tx today after permcath, ordered for 2.5 hours and slow DFR and BFR. ordered again tomorrow - case management consult for outpatient dialysis placement -Fluid restriction of 1 liter per day -Start dialysis diet -Obtain daily weights -Monitor I/O's -Assess dialysis needs daily Acute chest pain Atrial fibrillation with RVR -On oral Cardizem -Coumadin held in the setting of anemia per Cardiology Hypertension: -Controlled Anemia: -Coumadin on hold -Start Epogen 20,000 units with HD Subjective Date of service: 02/21/20 Principal diagnosis: Afib with RVR, CKD/end-stage renal disease Interval history: was in radiology suite for permcath placement Objective - Vital Signs Vital signs: Vital Signs - 12hr 02/21/20 02/21/20 03:33 08:00 Temperature 98.0 F Pulse Rate 51 L Pulse Rate [ 64 From Monitor] Respiratory 18 18 Rate Blood Pressure 101/58 O2 Sat by Pulse 88 98 Oximetry - Lab 02/21/20 04:24 02/21/20 04:24 Most recent lab results Calcium 9.1 mg/dL (8.4-10.2) 02/21/20 04:24 Phosphorus 4.90 mg/dL (2.5-4.5) H 02/21/20 12:28 Medications & Allergies - Medications Allergies/Adverse Reactions: Allergies No Known Allergies Allergy (Unverified 08/09/13 15:10) Home Medications: Home Medications Medication Instructions Recorded Confirmed Last Taken Type ISOSORBIDE MONOnitrate [Imdur ER] 10 mg PO BID 11/21/19 02/16/20 12/07/19 22:00 History Nitroglycerin [Nitrostat] 0.4 mg SL Q5M PRN 11/21/19 02/16/20 Unknown History Warfarin [Coumadin] 7.5 mg PO QDAY 11/22/19 02/16/20 12/07/19 History Lidocaine Topical 5% [Xylocaine 1 applic TP DAILY #1 tube 11/27/19 02/16/20 12/07/19 Rx Topical 5%] Amiodarone [Cordarone 200 MG TAB] 200 mg PO QDAY 12/02/19 02/16/20 12/07/19 10:00 History AtorvaSTATin [Lipitor] 40 mg PO QHS 12/02/19 02/16/20 12/07/19 22:00 History Cyanocobalamin (Vitamin B-12) 1,000 mcg PO QDAY 12/02/19 02/16/20 12/07/19 10:00 History [Vitamin B-12] Furosemide [Lasix TAB] 40 mg PO QDAY #30 tablet 12/07/19 02/16/20 12/07/19 10:00 Rx Aspirin [Aspirin BABY CHEW TAB] 81 mg PO QDAY 12/18/19 02/16/20 12/07/19 History Ferrous Sulfate [Feosol 325 MG tab] 325 mg PO BID #60 tablet 02/21/20 Unknown Rx Magnesium Hydroxide [Milk of 30 ml PO Q4H PRN #20 oral.liqd 02/21/20 Unknown Rx Magnesia] dilTIAZem [Cardizem] 90 mg PO Q8HR #90 tablet 02/21/20 Unknown Rx Active Medications: Generic Name Dose Route Start Last Admin Trade Name Freq PRN Reason Stop Dose Admin Acetaminophen 650 mg 02/14/20 22:10 Tylenol PO Q4H PRN Pain MILD(1-3)/Fever >100.5/ESQUIVEL Aspirin 325 mg 02/15/20 10:00 02/21/20 09:28 Ecotrin PO 325 mg QDAY [facility] Administration Diltiazem HCl 90 mg 02/15/20 10:00 02/21/20 05:15 Cardizem PO Not Given Q8HR [facility] Epoetin Timoteo 20,000 unit 02/18/20 12:47 Procrit IV KIMMIE PRN hemodialysis Ferrous Sulfate 325 mg 02/20/20 10:00 02/21/20 09:28 Feosol PO 325 mg BID BHAVANI Administration Guaifenesin 200 mg 02/17/20 15:12 02/17/20 15:24 Robitussin PO 200 mg Q4H PRN Administration Cough Magnesium Hydroxide 30 ml 02/14/20 22:10 Milk Of Magnesia PO Q4H PRN Constipation Morphine Sulfate 2 mg 02/14/20 22:10 Morphine IV Q5MIN PRN Chest Pain unrelieved by NTG Nitroglycerin 0.4 mg 02/14/20 22:10 Nitrostat SL Q5M PRN Chest Pain Ondansetron HCl 4 mg 02/14/20 22:10 Zofran IV Q8H PRN Nausea And Vomiting Sodium Chloride 10 ml 02/15/20 10:00 02/21/20 09:30 Sodium Chloride Flush Syringe 10 Ml IV 10 ml BID BHAVANI Administration Sodium Chloride 10 ml 02/14/20 22:10 Sodium Chloride Flush Syringe 10 Ml IV PRN PRN LINE FLUSH Warfarin Sodium 7.5 mg 02/20/20 17:00 02/20/20 18:44 Coumadin PO Not Given 1700 [facility] Protocol
[2020-02-21] MEDS ORDERED: fentaNYL 100 MCG/2 ML INJ ONE (13:21)
[2020-02-21] MEDS ORDERED: LIDOCAINE 1%/EPINEPHRINE 1:100,000 VIAL (20 ML) INFILTRATI ONE (13:38)
[2020-02-21] MEDS ORDERED: HEPARIN/NS 5000 UNIT/500ML 500 ML IR ONE (13:38)
[2020-02-21] MEDS: MIDAZOLAM 2 MG/2 ML INJ ONE ×2 (13:51→13:55)
[2020-02-21] MEDS: HEPARIN 10,000 UNITS/10 ML VIAL ONE ×2 (14:00→14:01)
--- NOTE | 2020-02-21 14:07 | Operative Report ---
Operative Report Operative Report: Exam: Ultrasound and fluoroscopic guided placement of Vas-Cath Clinical indication: Patient with a history of end-stage renal disease requiring dialysis access. Initially, the patient was reserved however she now agrees to proceed forward with dialysis catheter placement and the initiation of dialysis. Written informed consent was obtained following an explanation of the risks, benefits and alternatives. Date: 02/21/2020 Procedure: Following an explanation of the risk, benefits and alternatives; writ ten informed consent was obtained. The patient was brought to the angiographic suite and placed in supine position on the examination table. Initial ultrasound evaluation of the neck demonstrated a patent right internal jugular vein. The patient's right neck and chest wall were prepped and draped in the usual sterile fashion. 1% lidocaine was used for anesthesia. Under ultrasound guidance, a 7 cm 21-gauge needle was advanced into the right internal jugular vein. A 0.018 guidewire was advanced centrally and tracked up the IJ. The needle was removed and a vertebral catheter was used to direct the guidewire downward. The vertebral catheter was removed and the micro sheath placed. The 0.018 guidewire was exchanged for a 0.035 guidewire and the guidewire advanced into the IVC under fluoroscopy to document intravenous positioning. Versed was then administered through the micro sheath as the patient had no IV access. The 0.035 guidewire was again inserted and the micro sheath removed. Following serial dilation, a 15 cm dialysis catheter with pigtail was advanced over the guidewire centrally to fluoroscopy. The guidewire was removed. Nonpulsatile blood return from all 3 ports. The catheter flushed and aspirated easily and was then locked with appropriate volumes of heparin. The catheter was securely fastened to the skin surface using 2-0 Ethilon suture and a sterile dressing applied. The patient tolerated the procedure well. There were no immediate postprocedure complications. Versed was used for anxiolysis. No sedation was utilized secondary to patient's comorbidities. Continuous cardiopulmonary monitoring was utilized. Impression: Ultrasound and fluoroscopic guided placement of 15 cm dialysis catheter with a pigtail via the right internal jugular vein.
[2020-02-21] MEDS: WARFARIN 7.5 MG TAB PO SCH (18:16)
[2020-02-22 04:48] LABS: INR 1.15 (0.87-1.13)
--- NOTE | 2020-02-22 09:07 | Event Note ---
Date: 02/22/20 Patient refused the procedure to have her vascath exchanged to a permacath. Will have to wait until next week to have exchanged.
--- NOTE | 2020-02-22 10:17 | Progress Note ---
Assessment and Plan Assessment and plan: 69-year-old female with known history of atrial fibrillation, hypertension, CHF and chronic kidney disease. Presenting to the emergency room today complaining of midsternal chest pressure and shortness of breath. Symptoms were said to have started earlier this evening. She has had some mild cough which is nonproductive. There is no no relieving or exacerbating factor for chest pain. Has been no radiation. She denies any fever or chills, no nausea vomiting, no diarrhea, no headache or dizziness. She denies any recent travel and no sick contacts. Upon arrival in the emergency room patient was found to be in atrial fibrillation with RVR. She had a dose of IV Cardizem with some improvement in heart rate. Not on dialysis A. fib with rate controlled Day #2 Symptomatically better Admitted for atrial fibrillation with RVR and chest pain Day #3 Stress test could not be done because of patient not being able to lie still Day #4 Patient has epistaxis Right nasal packing was done Day #5 Epistaxis resolved For permacath tomorrow day 6: Refused, Permacth, wants to re-evaluate in am. case management to work on dialysis chair, will also attempt to speak with family if patient permits. Morbid Obesity: weightloss counselling provided for 15 mins /: Patient is status post Vas-Cath. Unfortunately cannot be discharged with a Vas-Cath attempt to change to a permacath was refused by the patient. We will continue to monitor per nephrology we will attempt vascular cath changed to permacath on Tuesday morning and plan for discharge. COVID-19 testing has been obtained in anticipation for discharge. (1) NSTEMI Current Visit: Yes Status: Acute Plan to address problem: Stress test could not be done Troponins elevated Stress could not be done because patient was not able to lie still Troponins elevated because of the kidney failure Will defer to cardiology order stress test' (2) Atrial fibrillation with RVR Current Visit: Yes Status: Acute Plan to address problem: Patient had a dose of Cardizem upon arrival in the emergency room. Rate is better controlled. Patient has known history of atrial fibrillation and has been on anticoagulation. Patient follows up with a economic development director at [facility]. Cardiology consult Rate better controlled (3) Acute on chronic renal failure Current Visit: Yes Status: Acute Qualifiers: Acute renal failure type: unspecified Chronic kidney disease stage: unspecified stage Qualified Code(s): N17.9 - Acute kidney failure, unspecified; N18.9 - Chronic kidney disease, unspecified Plan to address problem: Will monitor BUN and creatinine. BUN/creatinine high May need dialysis Nephrology consult initiated Patient apparently had dialysis in the past Baseline creatinine was 2.1 in January which has gone up to 6.3 Patient may end up on dialysis (4) Subtherapeutic international normalized ratio (INR) Current Visit: Yes Status: Acute Plan to address problem: We will monitor PT/INR. Will adjust Coumadin as needed. Coumadin discontinued Eliquis to be started from 02/19/2020 after Vas-Cath procedure (5) Anemia of chronic disease Monitor closely, Start on iron supplementation (6) DVT prophylaxis Current Visit: No Status: Acute Plan to address problem: Patient currently on anticoagulation. INR is subtherapeutic. (7) Full code status Current Visit: Yes Status: Acute History Interval history: Patient seen and examined status post Vas-Cath. Attempted changed to permacath today was blocked by the patient refused even after agreeing when transportation came she refused again. Hospitalist Physical - Physical exam Narrative exam: VITAL SIGNS: Reviewed. GENERAL: The patient appears normally developed, obese, Vital signs as documented. HEAD: No signs of head trauma. EYES: Pupils are equal. Extraocular motions intact. EARS: Hearing grossly intact. MOUTH: Oropharynx is normal. NECK: No adenopathy, no JVD. CHEST: Chest with clear breath sounds bilaterally. No wheezes, rales, or rhonchi. CARDIAC: Regular rate and rhythm. S1 and S2, without murmurs, gallops, or rubs. VASCULAR: Right IJ Vas-Cath. No Edema. Peripheral pulses normal and equal in all extremities. ABDOMEN: Soft, non tender and non distended. No rebound or guarding, and no masses palpated. Bowel Sounds normal. MUSCULOSKELETAL: Good range of motion of all major joints. Extremities without clubbing, cyanosis or edema. NEUROLOGIC EXAM: Alert and oriented x 3 No focal sensory or strength deficits. Speech normal. Follows commands. PSYCHIATRIC: Mood normal. SKIN: detial exam as documented in skin assessment - Constitutional Vitals: Temp Pulse Resp BP Pulse Ox 98.4 F 68 18 103/62 98 02/22/20 05:15 02/22/20 08:00 02/22/20 08:00 02/22/20 05:15 02/22/20 08:00 General appearance: Present: no acute distress, well-nourished, obese HEART Score - HEART Score EKG: Non-specific Age: > 65 Risk factors: > 3 risk factors or hx of atherosclerotic disease Troponin: Troponin T 0.066 ng/mL (0.00-0.029) H D 02/15/20 07:45 Troponin: < normal limit - Critical Actions Critical Actions: 4-6 pts:12-16.6% risk of adverse cardiac event. Should be admitted Results - Labs CBC & Chem 7: 02/21/20 04:24 02/22/20 10:43 Labs: Laboratory Last Values WBC 7.2 K/mm3 (4.5-11.0) 02/21/20 04:24 RBC 3.14 M/mm3 (3.65-5.03) L 02/21/20 04:24 Hgb 7.9 gm/dl (10.1-14.3) L 02/21/20 04:24 Hct 25.2 % (30.3-42.9) L 02/21/20 04:24 MCV 80 fl (79-97) 02/21/20 04:24 MCH 25 pg (28-32) L 02/21/20 04:24 MCHC 32 % (30-34) 02/21/20 04:24 RDW 19.8 % (13.2-15.2) H 02/21/20 04:24 Plt Count 222 K/mm3 (140-440) 02/21/20 04:24 Lymph % (Auto) 9.3 % (13.4-35.0) L 02/17/20 16:26 [place] % (Auto) 3.4 % (0.0-7.3) 02/17/20 16:26 Eos % (Auto) 1.9 % (0.0-4.3) 02/17/20 16:26 Baso % (Auto) 1.1 % (0.0-1.8) 02/17/20 16:26 Lymph # 0.8 K/mm3 (1.2-5.4) L 02/17/20 16:26 [place] # 0.3 K/mm3 (0.0-0.8) 02/17/20 16:26 Eos # 0.2 K/mm3 (0.0-0.4) 02/17/20 16:26 Baso # 0.1 K/mm3 (0.0-0.1) 02/17/20 16:26 Seg Neutrophils % 84.3 % (40.0-70.0) H 02/17/20 16:26 Seg Neutrophils # 7.2 K/mm3 (1.8-7.7) 02/17/20 16:26 PT 14.8 Sec. (12.2-14.9) 02/22/20 04:02 INR 1.15 (0.87-1.13) H 02/22/20 04:02 Sodium 137 mmol/L (137-145) 02/21/20 04:24 Potassium 3.8 mmol/L (3.6-5.0) 02/21/20 04:24 Chloride 92.9 mmol/L (98-107) L 02/21/20 04:24 Carbon Dioxide 25 mmol/L (22-30) 02/21/20 04:24 Anion Gap 23 mmol/L 02/21/20 04:24 BUN 130 mg/dL (7-17) H 02/21/20 04:24 Creatinine 6.2 mg/dL (0.7-1.2) H 02/21/20 04:24 Estimated GFR 8 ml/min 02/21/20 04:24 BUN/Creatinine Ratio 21 % 02/21/20 04:24 Glucose 96 mg/dL (65-100) 02/21/20 04:24 Calcium 9.1 mg/dL (8.4-10.2) 02/21/20 04:24 Phosphorus 4.90 mg/dL (2.5-4.5) H 02/21/20 12:28 Total Bilirubin 0.70 mg/dL (0.1-1.2) 02/21/20 04:24 AST 15 units/L (5-40) 02/21/20 04:24 ALT 27 units/L (7-56) 02/21/20 04:24 Alkaline Phosphatase 105 units/L (35-129) 02/21/20 04:24 Troponin T 0.066 ng/mL (0.00-0.029) H D 02/15/20 07:45 Total Protein 6.9 g/dL (6.3-8.2) 02/21/20 04:24 Albumin 3.0 g/dL (3.9-5) L 02/21/20 04:24 Albumin/Globulin Ratio 0.8 % 02/21/20 04:24 Triglycerides 82 mg/dL (2-149) 02/14/20 20:06 Cholesterol 118 mg/dL (50-199) 02/14/20 20:06 LDL Cholesterol Direct 72 mg/dL (50-130) 02/14/20 20:06 HDL Cholesterol 33 mg/dL (40-59) L 02/14/20 20:06 Cholesterol/HDL Ratio 3.57 % 02/14/20 20:06 Hepatitis A IgM Ab -1 (NonReactive) 02/18/20 17:13 Hep Bs Antigen Non-reactive (Negative) 02/18/20 17:13 Hep B Core IgM Ab Non-reactive (NonReactive) 02/18/20 17:13 Hepatitis C Antibody Non-reactive (NonReactive) 02/18/20 17:13 [place]/IV: Voiding Method Incontinent IV Catheter Type [Left Hand] INT / Saline Lock IV Catheter Type [Right perma cath Internal Jugular] Active Medications - Current Medications Current Medications: Generic Name Dose Route Start Last Admin Trade Name Freq PRN Reason Stop Dose Admin Acetaminophen 650 mg 02/14/20 22:10 Tylenol PO Q4H PRN Pain MILD(1-3)/Fever >100.5/ESQUIVEL Aspirin 325 mg 02/15/20 10:00 02/21/20 09:28 Ecotrin PO 325 mg QDAY BHAVANI Administration Diltiazem HCl 90 mg 02/15/20 10:00 02/22/20 08:14 Cardizem PO Not Given Q8HR [facility] Epoetin Timoteo 20,000 unit 02/18/20 12:47 02/21/20 17:06 Procrit IV 20,000 unit KIMMIE PRN Administration hemodialysis Ferrous Sulfate 325 mg 02/20/20 10:00 02/21/20 21:40 Feosol PO 325 mg BID BHAVANI Administration Guaifenesin 200 mg 02/17/20 15:12 02/17/20 15:24 Robitussin PO 200 mg Q4H PRN Administration Cough Magnesium Hydroxide 30 ml 02/14/20 22:10 Milk Of Magnesia PO Q4H PRN Constipation Morphine Sulfate 2 mg 02/14/20 22:10 Morphine IV Q5MIN PRN Chest Pain unrelieved by NTG Nitroglycerin 0.4 mg 02/14/20 22:10 Nitrostat SL Q5M PRN Chest Pain Ondansetron HCl 4 mg 02/14/20 22:10 Zofran IV Q8H PRN Nausea And Vomiting Sodium Chloride 10 ml 02/15/20 10:00 02/21/20 21:40 Sodium Chloride Flush Syringe 10 Ml IV 10 ml BID BHAVANI Administration Sodium Chloride 10 ml 02/14/20 22:10 Sodium Chloride Flush Syringe 10 Ml IV PRN PRN LINE FLUSH Warfarin Sodium 7.5 mg 02/20/20 17:00 02/21/20 18:16 Coumadin PO 7.5 mg 1700 BHAVANI Administration Protocol Nutrition/Malnutrition Assess - Dietary Evaluation Nutrition/Malnutrition Findings: Nutrition Notes Start: 02/15/20 14:25 Freq: Status: Active Protocol: Document 02/21/20 11:13 ZHENG (Rec: 02/21/20 11:21 [email or web address] [id number] [email or web address]) Nutrition Notes Initial or Follow up Reassessment Current Diagnosis Hypertension,Heart Failure Other Pertinent Diagnosis afib with RVR, acute on chronic renal failure Current Diet Renal + 1L fluid restriction Labs/Tests BUN 130 Cr 6.2 Pertinent Medications Feosol, Coumadin Height 5 ft 8 in Weight 145 kg [place] Body Weight (kg) 63.63 BMI 48.6 Weight Status Morbidly Obese Subjective/Other Information Unable to reach pt vis phone ( 11:10). DNI education not needed as pt reported familiarity with low vit K diet during a 12/10/19 dietary assessment. She consumed 75% of three meals documented yesterday. Pt has been refusing Permcath placement for HD. D/C summary written this am. Burn Absent Trauma Absent Minimum of two criteria No physical signs of malnutrition #1 Nutrition Diagnosis Increased nutrient needs ( specify in comment below) Diagnosis Progress(for reassessment Continues documentation) Is patient on ventilator? No Is Patient Ambulatory and/or Out of Bed No REE-([facility]-confined to bed) 2444.892 Kcal/Kg value to use for calculation 13 Approximate Energy Requirements Using 1885 kcal/Kg Calculation Used for Recommendations Kcal/kg Additional Notes Pro needs 1.25-1.5g/kg adjBW: 130-156g/day Fluid needs 1L/day Nutrition Intervention Change Diet Order: Continue current diet order Goal #1 PO intake to meet at least 75% energy and pro needs Follow-Up By: 02/26/20 Additional Comments F/U: intakes, initiation of HD
--- NOTE | 2020-02-22 10:23 | Progress Note ---
Assessment and Plan End Stage Renal Disease: -s/p vascatha nd first HD 02/20, now is refusing permcath, HD again today for clearance and gentle UF, will try permcath placement Tuesday - case management consult for outpatient dialysis placement - will add midodrine 2.5 TID for low BP -Fluid restriction of 1 liter per day -Start dialysis diet -Obtain daily weights -Monitor I/O's -Assess dialysis needs daily Acute chest pain Atrial fibrillation with RVR -On oral Cardizem - anticoagulation per cardiology Hypertension: -Controlled Anemia: -on Epogen 20,000 units with HD Subjective Date of service: 02/22/20 Principal diagnosis: Afib with RVR, CKD/end-stage renal disease Interval history: vascath was placed yesterday and she tolerated first HD tx well, was suppose to have permcath placement today but she refused. Objective - Vital Signs Vital signs: Vital Signs - 12hr 02/22/20 02/22/20 02/22/20 00:17 05:15 08:00 Temperature 98.3 F 98.4 F Pulse Rate 90 Pulse Rate [ 68 From Monitor] Respiratory 14 18 18 Rate Blood Pressure 85/56 103/62 O2 Sat by Pulse 96 98 Oximetry - General Appearance General appearance: obese EENT: ATNC, PERRL Neck: no JVD, no carotid bruit Respiratory: Present: Decreased Breath Sounds Cardiology: irregular Gastrointestinal: normoactive bowel sounds, no tenderness, obese Integumentary: no rash, warm and dry Neurologic: no focal deficit, no asterixis Musculoskeletal: other (trace pitting edema in BLE) Psychiatric: cooperative - Lab 02/21/20 04:24 02/21/20 04:24 Most recent lab results Calcium 9.1 mg/dL (8.4-10.2) 02/21/20 04:24 Phosphorus 4.90 mg/dL (2.5-4.5) H 02/21/20 12:28 Medications & Allergies - Medications Allergies/Adverse Reactions: Allergies No Known Allergies Allergy (Unverified 08/09/13 15:10) Home Medications: Home Medications Medication Instructions Recorded Confirmed Last Taken Type ISOSORBIDE MONOnitrate [Imdur ER] 10 mg PO BID 11/21/19 02/16/20 12/07/19 22:00 History Nitroglycerin [Nitrostat] 0.4 mg SL Q5M PRN 11/21/19 02/16/20 Unknown History Warfarin [Coumadin] 7.5 mg PO QDAY 11/22/19 02/16/20 12/07/19 History Lidocaine Topical 5% [Xylocaine 1 applic TP DAILY #1 tube 11/27/19 02/16/20 12/07/19 Rx Topical 5%] Amiodarone [Cordarone 200 MG TAB] 200 mg PO QDAY 12/02/19 02/16/20 12/07/19 10:00 History AtorvaSTATin [Lipitor] 40 mg PO QHS 12/02/19 02/16/20 12/07/19 22:00 History Cyanocobalamin (Vitamin B-12) 1,000 mcg PO QDAY 12/02/19 02/16/20 12/07/19 10:00 History [Vitamin B-12] Furosemide [Lasix TAB] 40 mg PO QDAY #30 tablet 12/07/19 02/16/20 12/07/19 10:00 Rx Aspirin [Aspirin BABY CHEW TAB] 81 mg PO QDAY 12/18/19 02/16/20 12/07/19 History Ferrous Sulfate [Feosol 325 MG tab] 325 mg PO BID #60 tablet 02/21/20 Unknown Rx Magnesium Hydroxide [Milk of 30 ml PO Q4H PRN #20 oral.liqd 02/21/20 Unknown Rx Magnesia] dilTIAZem [Cardizem] 90 mg PO Q8HR #90 tablet 02/21/20 Unknown Rx Active Medications: Generic Name Dose Route Start Last Admin Trade Name Freq PRN Reason Stop Dose Admin Acetaminophen 650 mg 02/14/20 22:10 Tylenol PO Q4H PRN Pain MILD(1-3)/Fever >100.5/ESQUIVEL Aspirin 325 mg 02/15/20 10:00 02/21/20 09:28 Ecotrin PO 325 mg QDAY BHAVANI Administration Diltiazem HCl 90 mg 02/15/20 10:00 02/22/20 08:14 Cardizem PO Not Given Q8HR BHAVANI Epoetin Timoteo 20,000 unit 02/18/20 12:47 02/21/20 17:06 Procrit IV 20,000 unit KIMMIE PRN Administration hemodialysis Ferrous Sulfate 325 mg 02/20/20 10:00 02/21/20 21:40 Feosol PO 325 mg BID BHAVANI Administration Guaifenesin 200 mg 02/17/20 15:12 02/17/20 15:24 Robitussin PO 200 mg Q4H PRN Administration Cough Magnesium Hydroxide 30 ml 02/14/20 22:10 Milk Of Magnesia PO Q4H PRN Constipation Morphine Sulfate 2 mg 02/14/20 22:10 Morphine IV Q5MIN PRN Chest Pain unrelieved by NTG Nitroglycerin 0.4 mg 02/14/20 22:10 Nitrostat SL Q5M PRN Chest Pain Ondansetron HCl 4 mg 02/14/20 22:10 Zofran IV Q8H PRN Nausea And Vomiting Sodium Chloride 10 ml 02/15/20 10:00 02/21/20 21:40 Sodium Chloride Flush Syringe 10 Ml IV 10 ml BID BHAVANI Administration Sodium Chloride 10 ml 02/14/20 22:10 Sodium Chloride Flush Syringe 10 Ml IV PRN PRN LINE FLUSH Warfarin Sodium 7.5 mg 02/20/20 17:00 02/21/20 18:16 Coumadin PO 7.5 mg 1700 BHAVANI Administration Protocol
[2020-02-22] MEDS ORDERED: SODIUM CHLORIDE 0.9% 250ML 250 ML ONE (11:43)
[2020-02-22] MEDS ORDERED: LIDOCAINE 1%/EPINEPHRINE 1:100,000 VIAL (20 ML) INFILTRATI ONE (11:43)
[2020-02-22] MEDS ORDERED: HEPARIN/NS 5000 UNIT/500ML 0 ML IR ONE (11:43)
[2020-02-22] MEDS ORDERED: HEPARIN 10,000 UNITS/10 ML VIAL ONE (11:43)
[2020-02-22] MEDS: FERROUS SULFATE 325 MG TAB PO SCH ×3 (12:52→22:24)
[2020-02-22] MEDS: ASPIRIN EC 325 MG TAB PO SCH ×2 (12:52→13:14)
[2020-02-22] MEDS: MIDODRINE 2.5 MG TAB PO SCH ×2 (13:13→19:08)
[2020-02-22] MEDS: WARFARIN 7.5 MG TAB PO SCH (19:08)
--- NOTE | 2020-02-23 08:25 | Progress Note ---
Assessment and Plan Assessment and plan: 69-year-old female with known history of atrial fibrillation, hypertension, CHF and chronic kidney disease. Presenting to the emergency room today complaining of midsternal chest pressure and shortness of breath. Symptoms were said to have started earlier this evening. She has had some mild cough which is nonproductive. There is no no relieving or exacerbating factor for chest pain. Has been no radiation. She denies any fever or chills, no nausea vomiting, no diarrhea, no headache or dizziness. She denies any recent travel and no sick contacts. Upon arrival in the emergency room patient was found to be in atrial fibrillation with RVR. She had a dose of IV Cardizem with some improvement in heart rate. Not on dialysis A. fib with rate controlled Day #2 Symptomatically better Admitted for atrial fibrillation with RVR and chest pain Day #3 Stress test could not be done because of patient not being able to lie still Day #4 Patient has epistaxis Right nasal packing was done Day #5 Epistaxis resolved For permacath tomorrow day 6: Refused, Permacth, wants to re-evaluate in am. case management to work on dialysis chair, will also attempt to speak with family if patient permits. Morbid Obesity: weightloss counselling provided for 15 mins 02/21: Patient is status post Vas-Cath. Unfortunately cannot be discharged with a Vas-Cath attempt to change to a permacath was refused by the patient. We will continue to monitor per nephrology we will attempt vascular cath changed to permacath on Tuesday morning and plan for discharge. COVID-19 testing has been obtained in anticipation for discharge. 02/22: Yesterday stopped dialysis after just one hour. said she was tired. midodrine added for BP. Due to patients non compliance and possing repeated barriers to her treatment, hospice will be discussed with the patient. Refusing Meds, Counselling provided. (1) NSTEMI Current Visit: Yes Status: Acute Plan to address problem: Stress test could not be done Troponins elevated Stress could not be done because patient was not able to lie still Troponins elevated because of the kidney failure Will defer to cardiology order stress test' (2) Atrial fibrillation with RVR Current Visit: Yes Status: Acute Plan to address problem: Patient had a dose of Cardizem upon arrival in the emergency room. Rate is better controlled. Patient has known history of atrial fibrillation and has been on anticoa gulation. 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 Cardiology consult Rate better controlled (3) Acute on chronic renal failure Current Visit: Yes Status: Acute Qualifiers: Acute renal failure type: unspecified Chronic kidney disease stage: unspecified stage Qualified Code(s): N17.9 - Acute kidney failure, unspecified; N18.9 - Chronic kidney disease, unspecified Plan to address problem: Will monitor BUN and creatinine. BUN/creatinine high May need dialysis Nephrology consult initiated Patient apparently had dialysis in the past Baseline creatinine was 2.1 in January which has gone up to 6.3 Patient may end up on dialysis (4) Subtherapeutic international normalized ratio (INR) Current Visit: Yes Status: Acute Plan to address problem: We will monitor PT/INR. Will adjust Coumadin as needed. Coumadin discontinued Eliquis to be started from 02/19/2020 after Vas-Cath procedure (5) Anemia of chronic disease Monitor closely, Start on iron supplementation (6) DVT prophylaxis Current Visit: No Status: Acute Plan to address problem: Patient currently on anticoagulation. INR is subtherapeutic. (7) Full code status Current Visit: Yes Status: Acute History Interval history: Patient seen and examined, Per nursing staff patient is refusing meds, Discussed with the patient about compliance. Hospitalist Physical - Physical exam Narrative exam: VITAL SIGNS: Reviewed. GENERAL: The patient appears normally developed, obese, Vital signs as documented. HEAD: No signs of head trauma. EYES: Pupils are equal. Extraocular motions intact. EARS: Hearing grossly intact. MOUTH: Oropharynx is normal. NECK: No adenopathy, no JVD. CHEST: Chest with clear breath sounds bilaterally. No wheezes, rales, or rhonchi. CARDIAC: Tachycardia. S1 and S2, without murmurs, gallops, or rubs. VASCULAR: Right IJ Vas-Cath. No Edema. Peripheral pulses normal and equal in all extremities. ABDOMEN: Soft, non tender and non distended. No rebound or guarding, and no masses palpated. Bowel Sounds normal. MUSCULOSKELETAL: Good range of motion of all major joints. Extremities without clubbing, cyanosis or edema. NEUROLOGIC EXAM: Alert and oriented x 3 No focal sensory or strength deficits. Speech normal. Follows commands. PSYCHIATRIC: Mood normal. SKIN: detial exam as documented in skin assessment - Constitutional Vitals: Temp Pulse Resp BP Pulse Ox 97.6 F 74 18 119/66 98 02/23/20 06:22 02/23/20 07:44 02/23/20 07:44 02/23/20 06:22 02/23/20 07:44 General appearance: Present: no acute distress, well-nourished, obese HEART Score - HEART Score EKG: Non-specific Age: > 65 Risk factors: > 3 risk factors or hx of atherosclerotic disease Troponin: Troponin T 0.066 ng/mL (0.00-0.029) H D 02/15/20 07:45 Troponin: < normal limit - Critical Actions Critical Actions: 4-6 pts:12-16.6% risk of adverse cardiac event. Should be admitted Results - Labs CBC & Chem 7: 02/21/20 04:24 02/23/20 10:30 Labs: Laboratory Last Values WBC 7.2 K/mm3 (4.5-11.0) 02/21/20 04:24 RBC 3.14 M/mm3 (3.65-5.03) L 02/21/20 04:24 Hgb 7.9 gm/dl (10.1-14.3) L 02/21/20 04:24 Hct 25.2 % (30.3-42.9) L 02/21/20 04:24 MCV 80 fl (79-97) 02/21/20 04:24 MCH 25 pg (28-32) L 02/21/20 04:24 MCHC 32 % (30-34) 02/21/20 04:24 RDW 19.8 % (13.2-15.2) H 02/21/20 04:24 Plt Count 222 K/mm3 (140-440) 02/21/20 04:24 Lymph % (Auto) 9.3 % (13.4-35.0) L 02/17/20 16:26 Rush % (Auto) 3.4 % (0.0-7.3) 02/17/20 16:26 Eos % (Auto) 1.9 % (0.0-4.3) 02/17/20 16:26 Baso % (Auto) 1.1 % (0.0-1.8) 02/17/20 16:26 Lymph # 0.8 K/mm3 (1.2-5.4) L 02/17/20 16:26 Rush # 0.3 K/mm3 (0.0-0.8) 02/17/20 16:26 Eos # 0.2 K/mm3 (0.0-0.4) 02/17/20 16:26 Baso # 0.1 K/mm3 (0.0-0.1) 02/17/20 16:26 Seg Neutrophils % 84.3 % (40.0-70.0) H 02/17/20 16:26 Seg Neutrophils # 7.2 K/mm3 (1.8-7.7) 02/17/20 16:26 PT 14.8 Sec. (12.2-14.9) 02/22/20 04:02 INR 1.15 (0.87-1.13) H 02/22/20 04:02 Sodium 139 mmol/L (137-145) 02/22/20 10:43 Potassium 3.9 mmol/L (3.6-5.0) 02/22/20 10:43 Chloride 97.9 mmol/L (98-107) L 02/22/20 10:43 Carbon Dioxide 27 mmol/L (22-30) 02/22/20 10:43 Anion Gap 18 mmol/L 02/22/20 10:43 BUN 75 mg/dL (7-17) H 02/22/20 10:43 Creatinine 4.5 mg/dL (0.7-1.2) H 02/22/20 10:43 Estimated GFR 12 ml/min 02/22/20 10:43 BUN/Creatinine Ratio 17 % 02/22/20 10:43 Glucose 93 mg/dL (65-100) 02/22/20 10:43 Calcium 9.0 mg/dL (8.4-10.2) 02/22/20 10:43 Phosphorus 4.90 mg/dL (2.5-4.5) H 02/21/20 12:28 Total Bilirubin 0.70 mg/dL (0.1-1.2) 02/21/20 04:24 AST 15 units/L (5-40) 02/21/20 04:24 ALT 27 units/L (7-56) 02/21/20 04:24 Alkaline Phosphatase 105 units/L (35-129) 02/21/20 04:24 Troponin T 0.066 ng/mL (0.00-0.029) H D 02/15/20 07:45 Total Protein 6.9 g/dL (6.3-8.2) 02/21/20 04:24 Albumin 3.0 g/dL (3.9-5) L 02/21/20 04:24 Albumin/Globulin Ratio 0.8 % 02/21/20 04:24 Triglycerides 82 mg/dL (2-149) 02/14/20 20:06 Cholesterol 118 mg/dL (50-199) 02/14/20 20:06 LDL Cholesterol Direct 72 mg/dL (50-130) 02/14/20 20:06 HDL Cholesterol 33 mg/dL (40-59) L 02/14/20 20:06 Cholesterol/HDL Ratio 3.57 % 02/14/20 20:06 Coronavirus (PCR) Negative (Negative) 02/21/20 Unknown Hepatitis A IgM Ab -1 (NonReactive) 02/18/20 17:13 Hep Bs Antigen Non-reactive (Negative) 02/18/20 17:13 Hep B Core IgM Ab Non-reactive (NonReactive) 02/18/20 17:13 Hepatitis C Antibody Non-reactive (NonReactive) 02/18/20 17:13 Martinez/IV: Voiding Method Incontinent IV Catheter Type [Left Hand] INT / Saline Lock IV Catheter Type [Right VAS Cath Internal Jugular] Active Medications - Current Medications Current Medications: Generic Name Dose Route Start Last Admin Trade Name Freq PRN Reason Stop Dose Admin Acetaminophen 650 mg 02/14/20 22:10 Tylenol PO Q4H PRN Pain MILD(1-3)/Fever >100.5/ESQUIVEL Aspirin 325 mg 02/15/20 10:00 02/22/20 13:14 Ecotrin PO Not Given QDAY BHAVANI Diltiazem HCl 90 mg 02/15/20 10:00 02/23/20 07:55 Cardizem PO Not Given Q8HR BHAVANI Epoetin Timoteo 20,000 unit 02/18/20 12:47 02/21/20 17:06 Procrit IV 20,000 unit KIMMIE PRN Administration hemodialysis Ferrous Sulfate 325 mg 02/20/20 10:00 02/22/20 22:24 Feosol PO Not Given BID BHAVANI Guaifenesin 200 mg 02/17/20 15:12 02/17/20 15:24 Robitussin PO 200 mg Q4H PRN Administration Cough Magnesium Hydroxide 30 ml 02/14/20 22:10 Milk Of Magnesia PO Q4H PRN Constipation Midodrine 2.5 mg 02/22/20 12:00 02/22/20 19:08 Proamatine PO Not Given TID@0800,1200,1600 [facility] Morphine Sulfate 2 mg 02/14/20 22:10 Morphine IV Q5MIN PRN Chest Pain unrelieved by NTG Nitroglycerin 0.4 mg 02/14/20 22:10 Nitrostat SL Q5M PRN Chest Pain Ondansetron HCl 4 mg 02/14/20 22:10 Zofran IV Q8H PRN Nausea And Vomiting Sodium Chloride 10 ml 02/15/20 10:00 02/22/20 22:24 Sodium Chloride Flush Syringe 10 Ml IV Not Given BID BHAVANI Sodium Chloride 10 ml 02/14/20 22:10 Sodium Chloride Flush Syringe 10 Ml IV PRN PRN LINE FLUSH Warfarin Sodium 7.5 mg 02/20/20 17:00 02/22/20 19:08 Coumadin PO Not Given 1700 [facility] Protocol Nutrition/Malnutrition Assess - Dietary Evaluation Nutrition/Malnutrition Findings: Nutrition Notes Start: 02/15/20 14:25 Freq: Status: Active Protocol: Document 02/21/20 11:13 [facility] (Rec: 02/21/20 11:21 [facility] [id number]) Nutrition Notes Initial or Follow up Reassessment Current Diagnosis Hypertension,Heart Failure Other Pertinent Diagnosis afib with RVR, acute on chronic renal failure Current Diet Renal + 1L fluid restriction Labs/Tests BUN 130 Cr 6.2 Pertinent Medications Feosol, Coumadin Height 5 ft 8 in Weight 145 kg [place] Body Weight (kg) 63.63 BMI 48.6 Weight Status Morbidly Obese Subjective/Other Information Unable to reach pt vis phone ( 11:10). DNI education not needed as pt reported familiarity with low vit K diet during a 12/10/19 dietary assessment. She consumed 75% of three meals documented yesterday. Pt has been refusing Permcath placement for HD. D/C summary written this am. Burn Absent Trauma Absent Minimum of two criteria No physical signs of malnutrition #1 Nutrition Diagnosis Increased nutrient needs ( specify in comment below) Diagnosis Progress(for reassessment Continues documentation) Is patient on ventilator? No Is Patient Ambulatory and/or Out of Bed No REE-(Cidra-St. Jeor-confined to bed) 2444.892 Kcal/Kg value to use for calculation 13 Approximate Energy Requirements Using 1885 kcal/Kg Calculation Used for Recommendations Kcal/kg Additional Notes Pro needs 1.25-1.5g/kg adjBW: 130-156g/day Fluid needs 1L/day Nutrition Intervention Change Diet Order: Continue current diet order Goal #1 PO intake to meet at least 75% energy and pro needs Follow-Up By: 02/26/20 Additional Comments F/U: intakes, initiation of HD
[2020-02-23] MEDS: MIDODRINE 2.5 MG TAB PO SCH ×3 (09:15→16:55)
[2020-02-23] MEDS: FERROUS SULFATE 325 MG TAB PO SCH (09:15)
[2020-02-23] MEDS: ASPIRIN EC 325 MG TAB PO SCH (09:15)
--- NOTE | 2020-02-23 10:57 | Progress Note ---
Assessment and Plan End Stage Renal Disease: -Initiated on HD yesterday, HD#2 today. -case management consult for outpatient dialysis placement -Fluid restriction of 1 liter per day -Start dialysis diet -Obtain daily weights -Monitor I/O's -Assess dialysis needs daily Acute chest pain Atrial fibrillation with RVR -On oral Cardizem -Coumadin held in the setting of anemia per Cardiology Hypertension: -Controlled Anemia: -Coumadin on hold -Started Epogen 20,000 units with HD Subjective Date of service: 02/23/20 Principal diagnosis: Afib with RVR, CKD/end-stage renal disease Objective - Exam Narrative Exam: General appearance: obese EENT: ATNC, PERRL Neck: no JVD, no carotid bruit Respiratory: Present: Decreased Breath Sounds Cardiology: irregular Gastrointestinal: normoactive bowel sounds, no tenderness, obese Integumentary: no rash, warm and dry Neurologic: no focal deficit, no asterixis Musculoskeletal: other (trace pitting edema in BLE) Psychiatric: cooperative - Vital Signs Vital signs: Vital Signs - 12hr 02/23/20 02/23/20 02/23/20 06:22 07:44 07:51 Temperature 97.6 F 97.8 F Pulse Rate 104 H 79 Pulse Rate [ 74 From Monitor] Respiratory 18 18 18 Rate Blood Pressure 119/66 105/61 O2 Sat by Pulse 100 98 100 Oximetry - Lab 02/21/20 04:24 02/23/20 10:30 Most recent lab results Calcium 9.0 mg/dL (8.4-10.2) 02/22/20 10:43 Phosphorus 4.90 mg/dL (2.5-4.5) H 02/21/20 12:28 Medications & Allergies - Medications Allergies/Adverse Reactions: Allergies No Known Allergies Allergy (Unverified 08/09/13 15:10) Home Medications: Home Medications Medication Instructions Recorded Confirmed Last Taken Type ISOSORBIDE MONOnitrate [Imdur ER] 10 mg PO BID 11/21/19 02/16/20 12/07/19 22:00 History Nitroglycerin [Nitrostat] 0.4 mg SL Q5M PRN 11/21/19 02/16/20 Unknown History Warfarin [Coumadin] 7.5 mg PO QDAY 11/22/19 02/16/20 12/07/19 History Lidocaine Topical 5% [Xylocaine 1 applic TP DAILY #1 tube 11/27/19 02/16/20 12/07/19 Rx Topical 5%] Amiodarone [Cordarone 200 MG TAB] 200 mg PO QDAY 12/02/19 02/16/20 12/07/19 10:00 History AtorvaSTATin [Lipitor] 40 mg PO QHS 12/02/19 02/16/20 12/07/19 22:00 History Cyanocobalamin (Vitamin B-12) 1,000 mcg PO QDAY 12/02/19 02/16/20 12/07/19 10:00 History [Vitamin B-12] Furosemide [Lasix TAB] 40 mg PO QDAY #30 tablet 12/07/19 02/16/20 12/07/19 10:00 Rx Aspirin [Aspirin BABY CHEW TAB] 81 mg PO QDAY 12/18/19 02/16/20 12/07/19 History Ferrous Sulfate [Feosol 325 MG tab] 325 mg PO BID #60 tablet 02/21/20 Unknown Rx Magnesium Hydroxide [Milk of 30 ml PO Q4H PRN #20 oral.liqd 02/21/20 Unknown Rx Magnesia] dilTIAZem [Cardizem] 90 mg PO Q8HR #90 tablet 02/21/20 Unknown Rx Active Medications: Generic Name Dose Route Start Last Admin Trade Name Freq PRN Reason Stop Dose Admin Acetaminophen 650 mg 02/14/20 22:10 Tylenol PO Q4H PRN Pain MILD(1-3)/Fever >100.5/ESQUIVEL Aspirin 325 mg 02/15/20 10:00 02/23/20 09:15 Ecotrin PO Not Given QDAY BHAVANI Diltiazem HCl 90 mg 02/15/20 10:00 02/23/20 07:55 Cardizem PO Not Given Q8HR BHAVANI Epoetin Timoteo 20,000 unit 02/18/20 12:47 02/21/20 17:06 Procrit IV 20,000 unit KIMMIE PRN Administration hemodialysis Ferrous Sulfate 325 mg 02/20/20 10:00 02/23/20 09:15 Feosol PO Not Given BID BHAVANI Guaifenesin 200 mg 02/17/20 15:12 02/17/20 15:24 Robitussin PO 200 mg Q4H PRN Administration Cough Magnesium Hydroxide 30 ml 02/14/20 22:10 Milk Of Magnesia PO Q4H PRN Constipation Midodrine 2.5 mg 02/22/20 12:00 02/23/20 09:15 Proamatine PO Not Given TID@0800,1200,1600 [facility] Morphine Sulfate 2 mg 02/14/20 22:10 Morphine IV Q5MIN PRN Chest Pain unrelieved by NTG Nitroglycerin 0.4 mg 02/14/20 22:10 Nitrostat SL Q5M PRN Chest Pain Ondansetron HCl 4 mg 02/14/20 22:10 Zofran IV Q8H PRN Nausea And Vomiting Sodium Chloride 10 ml 02/15/20 10:00 02/23/20 09:15 Sodium Chloride Flush Syringe 10 Ml IV Not Given BID [facility] Sodium Chloride 10 ml 02/14/20 22:10 Sodium Chloride Flush Syringe 10 Ml IV PRN PRN LINE FLUSH Warfarin Sodium 7.5 mg 02/20/20 17:00 02/22/20 19:08 Coumadin PO Not Given 1700 [facility] Protocol
[2020-02-23 11:19] LABS: Calcium 8.8 mg/dL (8.4-10.2)
[2020-02-23] MEDS: WARFARIN 7.5 MG TAB PO SCH (16:56)
[2020-02-23 16:57] LABS: INR 1.3 (0.87-1.13)
[2020-02-24] MEDS: FERROUS SULFATE 325 MG TAB PO SCH ×3 (01:14→21:33)
--- NOTE | 2020-02-24 09:27 | Progress Note ---
Assessment and Plan Assessment and plan: 69-year-old female with known history of atrial fibrillation, hypertension, CHF and chronic kidney disease. Presenting to the emergency room today complaining of midsternal chest pressure and shortness of breath. Symptoms were said to have started earlier this evening. She has had some mild cough which is nonproductive. There is no no relieving or exacerbating factor for chest pain. Has been no radiation. She denies any fever or chills, no nausea vomiting, no diarrhea, no headache or dizziness. She denies any recent travel and no sick contacts. Upon arrival in the emergency room patient was found to be in atrial fibrillation with RVR. She had a dose of IV Cardizem with some improvement in heart rate. Not on dialysis A. fib with rate controlled Day #2 Symptomatically better Admitted for atrial fibrillation with RVR and chest pain Day #3 Stress test could not be done because of patient not being able to lie still Day #4 Patient has epistaxis Right nasal packing was done Day #5 Epistaxis resolved For permacath tomorrow day 6: Refused, Permacth, wants to re-evaluate in am. case management to work on dialysis chair, will also attempt to speak with family if patient permits. Morbid Obesity: weightloss counselling provided for 15 mins 7: Patient is status post Vas-Cath. Unfortunately cannot be discharged with a Vas-Cath attempt to change to a permacath was refused by the patient. We will continue to monitor per nephrology we will attempt vascular cath changed to permacath on Tuesday morning and plan for discharge. COVID-19 testing has been obtained in anticipation for discharge. 02/22: Yesterday stopped dialysis after just one hour. said she was tired. midodrine added for BP. Due to patients non compliance and possing repeated barriers to her treatment, hospice will be discussed with the patient. Refusing Meds, Counselling provided. 02/23: Tachycardia secondary to refusing meds. Would do IV BB but the BP precludes, will increase Midodrine to 5mg PO TID. Advance care counselling 35 mins. We will keep patient n.p.o. for planned permacath placement tomorrow. (1) NSTEMI Current Visit: Yes Status: Acute Plan to address problem: Stress test could not be done Troponins elevated Stress could not be done because patient was not able to lie still Troponins elevated because of the kidney failure Will defer to cardiology order stress test' (2) Atrial fibrillation with RVR Current Visit: Yes Status: Acute Plan to address problem: Patient had a dose of Cardizem upon arrival in the emergency room. Rate is better controlled. Patient has known history of atrial fibrillation and has been on anticoagulation. Patient follows up with a ethanol quality leader at [facility]. Cardiology consult Rate better controlled (3) Acute on chronic renal failure Current Visit: Yes Status: Acute Qualifiers: Acute renal failure type: unspecified Chronic kidney disease stage: unspecified stage Qualified Code(s): N17.9 - Acute kidney failure, unspecified; N18.9 - Chronic kidney disease, unspecified Plan to address problem: Will monitor BUN and creatinine. BUN/creatinine high May need dialysis Nephrology consult initiated Patient apparently had dialysis in the past Baseline creatinine was 2.1 in January which has gone up to 6.3 Patient may end up on dialysis (4) Subtherapeutic international normalized ratio (INR) Current Visit: Yes Status: Acute Plan to address problem: We will monitor PT/INR. Will adjust Coumadin as needed. Coumadin discontinued Eliquis to be started from 02/19/2020 after Vas-Cath procedure (5) Anemia of chronic disease Monitor closely, Start on iron supplementation (6) DVT prophylaxis Current Visit: No Status: Acute Plan to address problem: Patient currently on anticoagulation. INR is subtherapeutic. (7) Full code status Current Visit: Yes Status: Acute History Interval history: Patient seen and examined, Per nursing staff patient is refusing meds, discussed the importance taking her medication and the risk associated also called and advised the son. Discussed with the patient about compliance. Hospitalist Physical - Physical exam Narrative exam: VITAL SIGNS: Reviewed. GENERAL: The patient appears normally developed, obese, lethargic. Vital signs as documented. HEAD: No signs of head trauma. EYES: Pupils are equal. Extraocular motions intact. EARS: Hearing grossly intact. MOUTH: Oropharynx is normal. NECK: No adenopathy, no JVD. CHEST: Chest with clear breath sounds bilaterally. No wheezes, rales, or rhonchi. CARDIAC: Tachycardia. S1 and S2, without murmurs, gallops, or rubs. VASCULAR: Right IJ Vas-Cath. No Edema. Peripheral pulses normal and equal in all extremities. ABDOMEN: Soft, non tender and non distended. No rebound or guarding, and no masses palpated. Bowel Sounds normal. MUSCULOSKELETAL: Good range of motion of all major joints. Extremities without clubbing, cyanosis or edema. NEUROLOGIC EXAM: Alert and oriented x 3 No focal sensory or strength deficits. Speech normal. Follows commands. PSYCHIATRIC: Mood normal. SKIN: detial exam as documented in skin assessment - Constitutional Vitals: Temp Pulse Resp BP Pulse Ox 97.4 F L 117 H 18 84/59 95 02/24/20 08:48 02/24/20 08:48 02/24/20 08:48 02/24/20 08:48 02/24/20 08:48 General appearance: Present: no acute distress, well-nourished, obese HEART Score - HEART Score EKG: Non-specific Age: > 65 Risk factors: > 3 risk factors or hx of atherosclerotic disease Troponin: Troponin T 0.066 ng/mL (0.00-0.029) H D 02/15/20 07:45 Troponin: < normal limit - Critical Actions Critical Actions: 4-6 pts:12-16.6% risk of adverse cardiac event. Should be a dmitted Results - Labs CBC & Chem 7: 02/24/20 12:20 02/24/20 12:20 Labs: Laboratory Last Values WBC 7.2 K/mm3 (4.5-11.0) 02/21/20 04:24 RBC 3.14 M/mm3 (3.65-5.03) L 02/21/20 04:24 Hgb 7.9 gm/dl (10.1-14.3) L 02/21/20 04:24 Hct 25.2 % (30.3-42.9) L 02/21/20 04:24 MCV 80 fl (79-97) 02/21/20 04:24 MCH 25 pg (28-32) L 02/21/20 04:24 MCHC 32 % (30-34) 02/21/20 04:24 RDW 19.8 % (13.2-15.2) H 02/21/20 04:24 Plt Count 222 K/mm3 (140-440) 02/21/20 04:24 Lymph % (Auto) 9.3 % (13.4-35.0) L 02/17/20 16:26 [place] % (Auto) 3.4 % (0.0-7.3) 02/17/20 16:26 Eos % (Auto) 1.9 % (0.0-4.3) 02/17/20 16:26 Baso % (Auto) 1.1 % (0.0-1.8) 02/17/20 16:26 Lymph # 0.8 K/mm3 (1.2-5.4) L 02/17/20 16:26 [place] # 0.3 K/mm3 (0.0-0.8) 02/17/20 16:26 Eos # 0.2 K/mm3 (0.0-0.4) 02/17/20 16:26 Baso # 0.1 K/mm3 (0.0-0.1) 02/17/20 16:26 Seg Neutrophils % 84.3 % (40.0-70.0) H 02/17/20 16: Seg Neutrophils # 7.2 K/mm3 (1.8-7.7) 02/17/20 16:26 PT 16.4 Sec. (12.2-14.9) H 02/23/20 16:12 INR 1.30 (0.87-1.13) H 02/23/20 16:12 Sodium 139 mmol/L (137-145) 02/23/20 10:30 Potassium 4.1 mmol/L (3.6-5.0) 02/23/20 10:30 Chloride 98.9 mmol/L (98-107) 02/23/20 10:30 Carbon Dioxide 26 mmol/L (22-30) 02/23/20 10:30 Anion Gap 18 mmol/L 02/23/20 10:30 BUN 52 mg/dL (7-17) H 02/23/20 10:30 Creatinine 3.7 mg/dL (0.7-1.2) H 02/23/20 10:30 Estimated GFR 15 ml/min 02/23/20 10:30 BUN/Creatinine Ratio 14 % 02/23/20 10:30 Glucose 86 mg/dL (65-100) 02/23/20 10:30 Calcium 8.8 mg/dL (8.4-10.2) 02/23/20 10:30 Phosphorus 4.90 mg/dL (2.5-4.5) H 02/21/20 12:28 Total Bilirubin 0.70 mg/dL (0.1-1.2) 02/21/20 04:24 AST 15 units/L (5-40) 02/21/20 04:24 ALT 27 units/L (7-56) 02/21/20 04:24 Alkaline Phosphatase 105 units/L (35-129) 02/21/20 04:24 Troponin T 0.066 ng/mL (0.00-0.029) H D 02/15/20 07:45 Total Protein 6.9 g/dL (6.3-8.2) 02/21/20 04:24 Albumin 3.0 g/dL (3.9-5) L 02/21/20 04:24 Albumin/Globulin Ratio 0.8 % 02/21/20 04:24 Triglycerides 82 mg/dL (2-149) 02/14/20 20:06 Cholesterol 118 mg/dL (50-199) 02/14/20 20:06 LDL Cholesterol Direct 72 mg/dL (50-130) 02/14/20 20:06 HDL Cholesterol 33 mg/dL (40-59) L 02/14/20 20:06 Cholesterol/HDL Ratio 3.57 % 02/14/20 20:06 Coronavirus (PCR) Negative (Negative) 02/21/20 Unknown Hepatitis A IgM Ab -1 (NonReactive) 02/18/20 17:13 Hep Bs Antigen Non-reactive (Negative) 02/18/20 17:13 Hep B Core IgM Ab Non-reactive (NonReactive) 02/18/20 17:13 Hepatitis C Antibody Non-reactive (NonReactive) 02/18/20 17:13 Martinez/IV: Voiding Method Bedpan IV Catheter Type [Left Hand] INT / Saline Lock IV Catheter Type [Right VAS Cath Internal Jugular] Active Medications - Current Medications Current Medications: Generic Name Dose Route Start Last Admin Trade Name Freq PRN Reason Stop Dose Admin Acetaminophen 650 mg 02/14/20 22:10 Tylenol PO Q4H PRN Pain MILD(1-3)/Fever >100.5/ESQUIVEL Aspirin 325 mg 02/15/20 10:00 02/23/20 09:15 Ecotrin PO Not Given QDAY BHAVANI Diltiazem HCl 90 mg 02/15/20 10:00 02/24/20 01:18 Cardizem PO Not Given Q8HR [facility] Epoetin Timoteo 20,000 unit 02/18/20 12:47 02/21/20 17:06 Procrit IV 20,000 unit KIMMIE PRN Administration hemodialysis Ferrous Sulfate 325 mg 02/20/20 10:00 02/24/20 01:14 Feosol PO Not Given BID [facility] Guaifenesin 200 mg 02/17/20 15:12 02/17/20 15:24 Robitussin PO 200 mg Q4H PRN Administration Cough Magnesium Hydroxide 30 ml 02/14/20 22:10 Milk Of Magnesia PO Q4H PRN Constipation Midodrine 2.5 mg 02/22/20 12:00 02/23/20 16:55 Proamatine PO Not Given TID@0800,1200,1600 [facility] Morphine Sulfate 2 mg 02/14/20 22:10 Morphine IV Q5MIN PRN Chest Pain unrelieved by NTG Nitroglycerin 0.4 mg 02/14/20 22:10 Nitrostat SL Q5M PRN Chest Pain Ondansetron HCl 4 mg 02/14/20 22:10 Zofran IV Q8H PRN Nausea And Vomiting Sodium Chloride 10 ml 02/15/20 10:00 02/24/20 01:15 Sodium Chloride Flush Syringe 10 Ml IV Not Given BID [facility] Sodium Chloride 10 ml 02/14/20 22:10 Sodium Chloride Flush Syringe 10 Ml IV PRN PRN LINE FLUSH Warfarin Sodium 7.5 mg 02/20/20 17:00 02/23/20 16:56 Coumadin PO Not Given 1700 [facility] Protocol Nutrition/Malnutrition Assess - Dietary Evaluation Nutrition/Malnutrition Findings: Nutrition Notes Start: 02/15/20 14:25 Freq: Status: Active Protocol: Document 02/21/20 11:13 ZHENG (Rec: 02/21/20 11:21 [facility] SRW- [id number]) Nutrition Notes Initial or Follow up Reassessment Current Diagnosis Hypertension,Heart Failure Other Pertinent Diagnosis afib with RVR, acute on chronic renal failure Current Diet Renal + 1L fluid restriction Labs/Tests BUN 130 Cr 6.2 Pertinent Medications Feosol, Coumadin Height 5 ft 8 in Weight 145 kg [place] Body Weight (kg) 63.63 BMI 48.6 Weight Status Morbidly Obese Subjective/Other Information Unable to reach pt vis phone ( 11:10). DNI education not needed as pt reported familiarity with low vit K diet during a 12/10/19 dietary assessment. She consumed 75% of three meals documented yesterday. Pt has been refusing Permcath placement for HD. D/C summary written this am. Burn Absent Trauma Absent Minimum of two criteria No physical signs of malnutrition #1 Nutrition Diagnosis Increased nutrient needs ( specify in comment below) Diagnosis Progress(for reassessment Continues documentation) Is patient on ventilator? No Is Patient Ambulatory and/or Out of Bed No REE-([place]-St. Jeor-confined to bed) 2444.892 Kcal/Kg value to use for calculation 13 Approximate Energy Requirements Using 1885 kcal/Kg Calculation Used for Recommendations Kcal/kg Additional Notes Pro needs 1.25-1.5g/kg adjBW: 130-156g/day Fluid needs 1L/day Nutrition Intervention Change Diet Order: Continue current diet order Goal #1 PO intake to meet at least 75% energy and pro needs Follow-Up By: 02/26/20 Additional Comments F/U: intakes, initiation of HD
[2020-02-24] MEDS: ASPIRIN EC 325 MG TAB PO SCH (09:48)
--- NOTE | 2020-02-24 09:56 | Consultation ---
History of Present Illness - Reason for Consult Consult date: 02/24/20 Reason for consult: refusing meds - History of Present Psychiatric Illness The patient's medical record was reviewed and the patient's progress was discussed with the medical staff. Leeann Chong is a 69y/o female patient who states she was admitted into the hospital for chest pain. The patient is lying in bed awake. She is a/o x 2. She could not remember the date of month. She is calm and cooperative. The patient was unaware why someone from psych was seeing her. She denies any past psych history. She also denies any past suicide attempts or being on any psych medications. The patient denies SI/HI at time, saying "no, never." She also denies hallucinations of any kind. The patient denies any illicit drug use. She describes her mood as "alright." She says, "I'm not depressed or anything like that." She says her "appetite is good, but I just don't like the food here." She says, "It's bland or cold or hard." The patient then says, "they want me to take medication, but if I take that medication on any empty stomach it will make me sick." She says her sleep is "in and out." PAST PSYCHIATRIC HISTORY Diagnoses: Denies Suicide attempts or Self-harm behavior: Denies Prior psychiatric hospitalizations: Denies Substance Abuse history: Denies Previous psychiatric medications tried: Denies Outpatient treatment: Denies PAST MEDICAL HISTORY: None reported Family Psychiatric History: None reported or documented SOCIAL HISTORY Marital Status: Living Arrangements: Lives with son Employment Status: Disabled Access to guns/weapons: Denies Education: 4 years of college History of Abuse: Denies Legal History: Denies REVIEW OF SYSTEMS Constitutional: Negative for weight loss ENT: Negative for stridor Respiratory: Negative for cough or hemoptysis All other systems reviewed and are negative MENTAL STATUS EXAMINATION General Appearance: Dressed appropriately Behavior: Calm, cooperative, pleasant Mood: "alright" Affect and affective range: Congruent with stated mood Speech: Normal tone and pace Thought Process: Goal directed Thought content: Suicidal Ideation: Denies Homicidal Ideation: Denies Hallucination: Denies Delusions: None elicited Insight/Judgment: Limited Memory/Cognition: Limited ASSESSMENT RECOMMENDATIONS MEDICATIONS No medications at this time. Risks, benefits and alternatives of medications discussed with the patient, questions answered and consent obtained from patient. PSYCHOTHERAPY: Supportive psychotherapy provided MEDICAL: Per primary team DELIRIUM PRECAUTIONS: Please re-orient patient frequently, keep lights on during the day, and minimize benzodiazepines and opiates as these medications could worsen patient's confusion. TONSORIAL ARTIST: per medical team DISPOSITION: The patient does not meet the requirement for acute inpatient psychiatric treatment. She may discharge one medically clear. Will sign off Thank you for the consult. Please contact with any questions and/or concerns. Medications and Allergies Allergies Allergy/AdvReac Type Severity Reaction Status Date / Time No Known Allergies Allergy Unverified 08/09/13 15:10 Home Medications Medication Instructions Recorded Confirmed Last Taken Type ISOSORBIDE MONOnitrate [Imdur ER] 10 mg PO BID 11/21/19 02/16/20 12/07/19 22:00 History Nitroglycerin [Nitrostat] 0.4 mg SL Q5M PRN 11/21/19 02/16/20 Unknown History Warfarin [Coumadin] 7.5 mg PO QDAY 11/22/19 02/16/20 12/07/19 History Lidocaine Topical 5% [Xylocaine 1 applic TP DAILY #1 tube 11/27/19 02/16/20 12/07/19 Rx Topical 5%] Amiodarone [Cordarone 200 MG TAB] 200 mg PO QDAY 12/02/19 02/16/20 12/07/19 10:00 History AtorvaSTATin [Lipitor] 40 mg PO QHS 12/02/19 02/16/20 12/07/19 22:00 History Cyanocobalamin (Vitamin B-12) 1,000 mcg PO QDAY 12/02/19 02/16/20 12/07/19 10:00 History [Vitamin B-12] Furosemide [Lasix TAB] 40 mg PO QDAY #30 tablet 12/07/19 02/16/20 12/07/19 10:00 Rx Aspirin [Aspirin BABY CHEW TAB] 81 mg PO QDAY 12/18/19 02/16/20 12/07/19 History Ferrous Sulfate [Feosol 325 MG tab] 325 mg PO BID #60 tablet 02/21/20 Unknown Rx Magnesium Hydroxide [Milk of 30 ml PO Q4H PRN #20 oral.liqd 02/21/20 Unknown Rx Magnesia] dilTIAZem [Cardizem] 90 mg PO Q8HR #90 tablet 02/21/20 Unknown Rx Active Meds: Active Medications Acetaminophen (Tylenol) 650 mg PO Q4H PRN PRN Reason: Pain MILD(1-3)/Fever >100.5/ESQUIVEL Aspirin (Ecotrin) 325 mg PO QDAY [facility] Last Admin: 02/24/20 09:48 Dose: Not Given Documented by: Diltiazem HCl (Cardizem) 90 mg PO Q8HR [facility] Last Admin: 02/24/20 09:48 Dose: Not Given Documented by: Epoetin Timoteo (Procrit) 20,000 unit IV KIMMIE PRN PRN Reason: hemodialysis Last Admin: 02/21/20 17:06 Dose: 20,000 unit Documented by: Ferrous Sulfate (Feosol) 325 mg PO BID [facility] Last Admin: 02/24/20 09:48 Dose: Not Given Documented by: Guaifenesin (Robitussin) 200 mg PO Q4H PRN PRN Reason: Cough Last Admin: 02/17/20 15:24 Dose: 200 mg Documented by: Magnesium Hydroxide (Milk Of Magnesia) 30 ml PO Q4H PRN PRN Reason: Constipation Midodrine (Proamatine) 5 mg PO TID@0800,1200,1600 [facility] Morphine Sulfate (Morphine) 2 mg IV Q5MIN PRN PRN Reason: Chest Pain unrelieved by NTG Nitroglycerin (Nitrostat) 0.4 mg SL Q5M PRN PRN Reason: Chest Pain Ondansetron HCl (Zofran) 4 mg IV Q8H PRN PRN Reason: Nausea And Vomiting Sodium Chloride (Sodium Chloride Flush Syringe 10 Ml) 10 ml IV BID [facility] Last Admin: 02/24/20 09:48 Dose: Not Given Documented by: Sodium Chloride (Sodium Chloride Flush Syringe 10 Ml) 10 ml IV PRN PRN PRN Reason: LINE FLUSH Warfarin Sodium (Coumadin) 7.5 mg PO 1700 [facility]; Protocol Last Admin: 02/23/20 16:56 Dose: Not Given Documented by: Mental Status Exam - Vital signs Last Vital Signs Temp 97.4 F L 02/24/20 08:48 Pulse 117 H 02/24/20 08:48 Resp 18 02/24/20 08:48 BP 84/59 02/24/20 08:48 Pulse Ox 95 07/19/20 08:48 Results Result Diagrams: 02/21/20 04:24 02/23/20 10:30 Abnormal lab results 02/23/20 02/23/20 Range/Units 10:30 16:12 PT 16.4 H (12.2-14.9) Sec. INR 1.30 H (0.87-1.13) BUN 52 H (7-17) mg/dL Creatinine 3.7 H (0.7-1.2) mg/dL All other labs normal.
--- NOTE | 2020-02-24 10:56 | Progress Note ---
Assessment and Plan End Stage Renal Disease: --s/p vascatha nd first HD 02/20, now is refusing permcath, s/p HD tuesday, no HD today, will try permcath placement Tuesday -case management consult for outpatient dialysis placement -Fluid restriction of 1 liter per day -Start dialysis diet -Obtain daily weights -Monitor I/O's -Assess dialysis needs daily Acute chest pain Atrial fibrillation with RVR -On oral Cardizem -Coumadin held in the setting of anemia per Cardiology Hypertension: -Controlled Anemia: -Coumadin on hold -Started Epogen 20,000 units with HD Subjective Date of service: 02/24/20 Principal diagnosis: Afib with RVR, CKD/end-stage renal disease Interval history: Refused TDC tuesday. Objective - Exam Narrative Exam: General appearance: obese EENT: ATNC, PERRL Neck: no JVD, no carotid bruit Respiratory: Present: Decreased Breath Sounds Cardiology: irregular Gastrointestinal: normoactive bowel sounds, no tenderness, obese Integumentary: no rash, warm and dry Neurologic: no focal deficit, no asterixis Musculoskeletal: other (trace pitting edema in BLE) Psychiatric: cooperative - Vital Signs Vital signs: Vital Signs - 12hr 02/24/20 02/24/20 02/24/20 00:09 05:05 08:48 Temperature 98.3 F 98.0 F 97.4 F L Pulse Rate 122 H 131 H 117 H Respiratory 20 18 18 Rate Blood Pressure 90/58 109/73 84/59 O2 Sat by Pulse 94 96 95 Oximetry - Lab 02/24/20 12:20 02/24/20 12:20 Most recent lab results Calcium 8.8 mg/dL (8.4-10.2) 02/23/20 10:30 Phosphorus 4.90 mg/dL (2.5-4.5) H 02/21/20 12:28 Medications & Allergies - Medications Allergies/Adverse Reactions: Allergies No Known Allergies Allergy (Unverified 08/09/13 15:10) Home Medications: Home Medications Medication Instructions Recorded Confirmed Last Taken Type ISOSORBIDE MONOnitrate [Imdur ER] 10 mg PO BID 11/21/19 02/16/20 12/07/19 22:00 History Nitroglycerin [Nitrostat] 0.4 mg SL Q5M PRN 11/21/19 02/16/20 Unknown History Warfarin [Coumadin] 7.5 mg PO QDAY 11/22/19 02/16/20 12/07/19 History Lidocaine Topical 5% [Xylocaine 1 applic TP DAILY #1 tube 11/27/19 02/16/20 Rx Topical 5%] Amiodarone [Cordarone 200 MG TAB] 200 mg PO QDAY 12/02/19 02/16/20 12/07/19 10:00 History AtorvaSTATin [Lipitor] 40 mg PO QHS 12/02/19 02/16/20 12/07/19 22:00 History Cyanocobalamin (Vitamin B-12) 1,000 mcg PO QDAY 12/02/19 02/16/20 12/07/19 10:00 History [Vitamin B-12] Furosemide [Lasix TAB] 40 mg PO QDAY #30 tablet 12/07/19 02/16/20 12/07/19 10:00 Rx Aspirin [Aspirin BABY CHEW TAB] 81 mg PO QDAY 12/18/19 02/16/20 12/07/19 History Ferrous Sulfate [Feosol 325 MG tab] 325 mg PO BID #60 tablet 02/21/20 Unknown Rx Magnesium Hydroxide [Milk of 30 ml PO Q4H PRN #20 oral.liqd 02/21/20 Unknown Rx Magnesia] dilTIAZem [Cardizem] 90 mg PO Q8HR #90 tablet 02/21/20 Unknown Rx Active Medications: Generic Name Dose Route Start Last Admin Trade Name Freq PRN Reason Stop Dose Admin Acetaminophen 650 mg 02/14/20 22:10 Tylenol PO Q4H PRN Pain MILD(1-3)/Fever >100.5/ESQUIVEL Aspirin 325 mg 02/15/20 10:00 02/24/20 09:48 Ecotrin PO Not Given QDAY BHAVANI Diltiazem HCl 90 mg 02/15/20 10:00 02/24/20 09:48 Cardizem PO Not Given Q8HR BHAVANI Epoetin Timoteo 20,000 unit 02/18/20 12:47 02/21/20 17:06 Procrit IV 20,000 unit KIMMIE PRN Administration hemodialysis Ferrous Sulfate 325 mg 02/20/20 10:00 02/24/20 09:48 Feosol PO Not Given BID BHAVANI Guaifenesin 200 mg 02/17/20 15:12 02/17/20 15:24 Robitussin PO 200 mg Q4H PRN Administration Cough Magnesium Hydroxide 30 ml 02/14/20 22:10 Milk Of Magnesia PO Q4H PRN Constipation Midodrine 5 mg 02/24/20 09:29 Proamatine PO TID@0800,1200,1600 [facility] Morphine Sulfate 2 mg 02/14/20 22:10 Morphine IV Q5MIN PRN Chest Pain unrelieved by NTG Nitroglycerin 0.4 mg 02/14/20 22:10 Nitrostat SL Q5M PRN Chest Pain Ondansetron HCl 4 mg 02/14/20 22:10 Zofran IV Q8H PRN Nausea And Vomiting Sodium Chloride 10 ml 02/15/20 10:00 02/24/20 09:48 Sodium Chloride Flush Syringe 10 Ml IV Not Given BID [facility] Sodium Chloride 10 ml 02/14/20 22:10 Sodium Chloride Flush Syringe 10 Ml IV PRN PRN LINE FLUSH Warfarin Sodium 7.5 mg 02/20/20 17:00 02/23/20 16:56 Coumadin PO Not Given 1700 [facility] Protocol
[2020-02-24] MEDS: MIDODRINE 2.5 MG TAB PO SCH ×2 (12:17→17:40)
[2020-02-24 12:50] LABS: Calcium 8.9 mg/dL (8.4-10.2)
[2020-02-24 12:52] LABS: Hematocrit 26.3 % (30.3-42.9); Hemoglobin 8.4 gm/dl (10.1-14.3); Mean Corpuscular HGB Conc 32 % (30-34); Mean Corpuscular Volume 80 fl (79-97); Platelet Count 192 K/mm3 (140-440); Red Cell Distribution Width 19.8 % (13.2-15.2)
[2020-02-24 13:03] LABS: INR 1.23 (0.87-1.13)
[2020-02-24] MEDS: WARFARIN 7.5 MG TAB PO SCH (17:40)
[2020-02-25 06:41] LABS: INR 1.27 (0.87-1.13)
--- NOTE | 2020-02-25 09:09 | Progress Note ---
Assessment and Plan Assessment and plan: 69-year-old female with of afib, HTN, HFpEF, obesity and CKD presented with midsternal chest pressure and SOB. She was found to be in afib with RVR s/p IV cardizem and cardiology was consulted. Nephrology was consulted and planned for HD. - Patient Problems (1) Atrial fibrillation with RVR Current Visit: Yes Status: Acute Plan to address problem: - 02/18 Coumadin held r/t anemia - Unable to complete stress test because the patient cannot lie still - Troponin may be elevated in setting of CKD - Anticougulation restarted, pharmacy to follow for dosing adjustments - Cardizem for rate control - ASA - Cardiology consulted and signed off now - BP monitoring per protocol - pvc monitor in place (2) Acute on chronic renal failure Current Visit: Yes Status: Acute Qualifiers: Qualified Code(s): N17.9 - Acute kidney failure, unspecified; N18.9 - Chronic kidney disease, unspecified Plan to address problem: - Trend BUN and Cr - Renal diet - Nephrology was consulted for HD ( baseline Cr 2.1 in January which is better today at 6.2 from yesterday at 6.6) - Agreed to permcath placement today- Dr. David consulted - 1 liter fluid restriction - Epogen and Iron added (3) Chronic heart failure with preserved ejection fraction (HFpEF) Current Visit: Yes Status: Chronic (4) HTN (hypertension) Current Visit: Yes Status: Chronic Qualifiers: Hypertension type: essential hypertension Qualified Code(s): I10 - Essential (primary) hypertension Plan to address problem: - continue current regimen of CCB - BP monitoring per protocol (5) Anemia Current Visit: Yes Status: Acute Qualifiers: Anemia type: due to chronic kidney disease Plan to address problem: - Epogen with HD - Iron supplement (6) DVT prophylaxis Current Visit: No Status: Acute Plan to address problem: - SCDs while in bed - Systemic anticoagulation with warfarin resumed History Interval history: HD 11: 69-year-old female with of afib, HTN, HFpEF, obesity and CKD presented with midsternal chest pressure and SOB. She was found to be in afib with RVR s/p IV cardizem and cardiology was consulted. Nephrology was consulted and planned for HD. However she has been refusing placement of permcath. This morning she is agreeable for the placement of permcath and HD. Vascular surgery consulted. 02/14 HD 2: Symptomatically better, Admitted for atrial fibrillation with RVR and chest pain 02/15 HD 3: Stress test could not be done because of patient not being able to lie still 02/16 HD 4: Patient has epistaxis s/p Right nasal packing 02/17 HD 5: Epistaxis resolved, For permcath tomorrow 02/18 HD 6: Refused, Permcath, wants to re-evaluate in am. case management to work on dialysis chair, will also attempt to speak with family if patient permits. Morbid Obesity: weight loss counselling provided for 15 mins 02/19 HD 7: Warfarin resumed as patient continues to refuse permcath placement for HD, pharmacy to follow. 02/20 HD 8: Patient is status post Vas-Cath. Unfortunately cannot be discharged with a Vas-Cath attempt to change to a permacath was refused by the patient. We will continue to monitor per nephrology we will attempt vascular cath changed to permacath on Tuesday morning and plan for discharge. COVID-19 testing has been obtained in anticipation for discharge. 02/21 HD 9: Yesterday stopped dialysis after just one hour. said she was tired. midodrine added for BP. Due to patients non compliance and possing repeated barriers to her treatment, hospice will be discussed with the patient. Refusing Meds, Counselling provided. 02/22 HD 10: Tachycardia secondary to refusing meds. Would do IV BB but the BP precludes, will increase Midodrine to 5mg PO TID. Advance care counselling 35 mins. We will keep patient n.p.o. for planned permacath placement tomorrow. Hospitalist Physical - Constitutional Vitals: Temp Pulse Resp BP Pulse Ox 98.0 F 88 20 99/80 93 02/25/20 07:53 02/25/20 07:53 02/25/20 07:53 02/25/20 07:53 02/25/20 07:53 General appearance: Present: no acute distress, well-nourished, obese HEART Score - HEART Score EKG: Non-specific Age: > 65 Risk factors: > 3 risk factors or hx of atherosclerotic disease Troponin: Troponin T 0.066 ng/mL (0.00-0.029) H D 02/15/20 07:45 Troponin: < normal limit - Critical Actions Critical Actions: 4-6 pts:12-16.6% risk of adverse cardiac event. Should be admitted Results - Labs CBC & Chem 7: 02/24/20 12:20 02/24/20 12:20 Labs: Laboratory Last Values WBC 6.0 K/mm3 (4.5-11.0) 02/24/20 12:20 RBC 3.30 M/mm3 (3.65-5.03) L 02/24/20 12:20 Hgb 8.4 gm/dl (10.1-14.3) L 02/24/20 12:20 Hct 26.3 % (30.3-42.9) L 02/24/20 12:20 MCV 80 fl (79-97) 02/24/20 12: MCH 26 pg (28-32) L 02/24/20 12: MCHC 32 % (30-34) 02/24/20 12:20 RDW 19.8 % (13.2-15.2) H 02/24/20 12:20 Plt Count 192 K/mm3 (140-440) 02/24/20 12:20 Lymph % (Auto) 9.3 % (13.4-35.0) L 02/17/20 16:26 [place] % (Auto) 3.4 % (0.0-7.3) 02/17/20 16:26 Eos % (Auto) 1.9 % (0.0-4.3) 02/17/20 16:26 Baso % (Auto) 1.1 % (0.0-1.8) 02/17/20 16:26 Lymph # 0.8 K/mm3 (1.2-5.4) L 02/17/20 16:26 [place] # 0.3 K/mm3 (0.0-0.8) 02/17/20 16:26 Eos # 0.2 K/mm3 (0.0-0.4) 02/17/20 16: Baso # 0.1 K/mm3 (0.0-0.1) 02/17/20 16:26 Seg Neutrophils % 84.3 % (40.0-70.0) H 02/17/20 16:26 Seg Neutrophils # 7.2 K/mm3 (1.8-7.7) 02/17/20 16:26 PT 16.1 Sec. (12.2-14.9) H 02/25/20 05:39 INR 1.27 (0.87-1.13) H 02/25/20 05:39 Sodium 137 mmol/L (137-145) 02/24/20 12:20 Potassium 3.6 mmol/L (3.6-5.0) 02/24/20 12:20 Chloride 98.0 mmol/L (98-107) 02/24/20 12:20 Carbon Dioxide 26 mmol/L (22-30) 02/24/20 12:20 Anion Gap 17 mmol/L 02/24/20 12:20 BUN 61 mg/dL (7-17) H 02/24/20 12:20 Creatinine 4.2 mg/dL (0.7-1.2) H 02/24/20 12:20 Estimated GFR 13 ml/min 02/24/20 12:20 BUN/Creatinine Ratio 15 % 02/24/20 12:20 Glucose 90 mg/dL (65-100) 02/24/20 12:20 Calcium 8.9 mg/dL (8.4-10.2) 02/24/20 12:20 Phosphorus 4.90 mg/dL (2.5-4.5) H 02/21/20 12:28 Total Bilirubin 0.70 mg/dL (0.1-1.2) 02/21/20 04:24 AST 15 units/L (5-40) 02/21/20 04:24 ALT 27 units/L (7-56) 02/21/20 04:24 Alkaline Phosphatase 105 units/L (35-129) 02/21/20 04:24 Troponin T 0.066 ng/mL (0.00-0.029) H D 02/15/20 07:45 Total Protein 6.9 g/dL (6.3-8.2) 02/21/20 04:24 Albumin 3.0 g/dL (3.9-5) L 02/21/20 04:24 Albumin/Globulin Ratio 0.8 % 02/21/20 04:24 Triglycerides 82 mg/dL (2-149) 02/14/20 20:06 Cholesterol 118 mg/dL (50-199) 07/09/20 20:06 LDL Cholesterol Direct 72 mg/dL (50-130) 02/14/20 20:06 HDL Cholesterol 33 mg/dL (40-59) L 02/14/20 20:06 Cholesterol/HDL Ratio 3.57 % 02/14/20 20:06 Coronavirus (PCR) Negative (Negative) 02/21/20 Unknown Hepatitis A IgM Ab -1 (NonReactive) 02/18/20 17:13 Hep Bs Antigen Non-reactive (Negative) 02/18/20 17:13 Hep B Core IgM Ab Non-reactive (NonReactive) 02/18/20 17:13 Hepatitis C Antibody Non-reactive (NonReactive) 02/18/20 17:13 [place]/IV: Voiding Method Incontinent IV Catheter Type [Left Hand] INT / Saline Lock IV Catheter Type [Right VAS Cath Internal Jugular] Active Medications - Current Medications Current Medications: Generic Name Dose Route Start Last Admin Trade Name Freq PRN Reason Stop Dose Admin Acetaminophen 650 mg 02/14/20 22:10 Tylenol PO Q4H PRN Pain MILD(1-3)/Fever >100.5/ESQUIVEL Aspirin 325 mg 02/15/20 10:00 02/24/20 09:48 Ecotrin PO Not Given QDAY BHAVANI Diltiazem HCl 90 mg 02/15/20 10:00 02/25/20 06:13 Cardizem PO 90 mg Q8HR BHAVANI Administration Epoetin Timoteo 20,000 unit 02/18/20 12:47 02/21/20 17:06 Procrit IV 20,000 unit KIMMIE PRN Administration hemodialysis Ferrous Sulfate 325 mg 02/20/20 10:00 02/24/20 21:33 Feosol PO 325 mg BID BHAVANI Administration Guaifenesin 200 mg 02/17/20 15:12 02/17/20 15:24 Robitussin PO 200 mg Q4H PRN Administration Cough Magnesium Hydroxide 30 ml 02/14/20 22:10 Milk Of Magnesia PO Q4H PRN Constipation Midodrine 5 mg 02/24/20 09:29 02/24/20 17:40 Proamatine PO Not Given TID@0800,1200,1600 BHAVANI Morphine Sulfate 2 mg 02/14/20 22:10 Morphine IV Q5MIN PRN Chest Pain unrelieved by NTG Nitroglycerin 0.4 mg 02/14/20 22:10 Nitrostat SL Q5M PRN Chest Pain Ondansetron HCl 4 mg 02/14/20 22:10 Zofran IV Q8H PRN Nausea And Vomiting Sodium Chloride 10 ml 02/15/20 10:00 02/25/20 06:00 Sodium Chloride Flush Syringe 10 Ml IV 10 ml BID BHAVANI Administration Sodium Chloride 10 ml 02/14/20 22:10 02/24/20 22:00 Sodium Chloride Flush Syringe 10 Ml IV 10 ml PRN PRN Administration LINE FLUSH Warfarin Sodium 7.5 mg 02/20/20 17:00 02/24/20 17:40 Coumadin PO Not Given 1700 [facility] Protocol Nutrition/Malnutrition Assess - Dietary Evaluation Nutrition/Malnutrition Findings: Nutrition Notes Start: 02/15/20 14:25 Freq: Status: Active Protocol: Document 02/21/20 11:13 ZHENG (Rec: 02/21/20 11:21 [email or web address] [id number] [email or web address]) Nutrition Notes Initial or Follow up Reassessment Current Diagnosis Hypertension,Heart Failure Other Pertinent Diagnosis afib with RVR, acute on chronic renal failure Current Diet Renal + 1L fluid restriction Labs/Tests BUN 130 Cr 6.2 Pertinent Medications Feosol, Coumadin Height 5 ft 8 in Weight 145 kg [place] Body Weight (kg) 63.63 BMI 48.6 Weight Status Morbidly Obese Subjective/Other Information Unable to reach pt vis phone ( 11:10). DNI education not needed as pt reported familiarity with low vit K diet during a 12/10/19 dietary assessment. She consumed 75% of three meals documented yesterday. Pt has been refusing Permcath placement for HD. D/C summary written this am. Burn Absent Trauma Absent Minimum of two criteria No physical signs of malnutrition #1 Nutrition Diagnosis Increased nutrient needs ( specify in comment below) Diagnosis Progress(for reassessment Continues documentation) Is patient on ventilator? No Is Patient Ambulatory and/or Out of Bed No REE-([facility]-confined to bed) 2444.892 Kcal/Kg value to use for calculation 13 Approximate Energy Requirements Using 1885 kcal/Kg Calculation Used for Recommendations Kcal/kg Additional Notes Pro needs 1.25-1.5g/kg adjBW: 130-156g/day Fluid needs 1L/day Nutrition Intervention Change Diet Order: Continue current diet order Goal #1 PO intake to meet at least 75% energy and pro needs Follow-Up By: 02/26/20 Additional Comments F/U: intakes, initiation of HD
[2020-02-25] MEDS ORDERED: MIDAZOLAM 2 MG/2 ML INJ ONE (10:42)
[2020-02-25] MEDS ORDERED: HEPARIN 10,000 UNITS/10 ML VIAL ONE (10:42)
[2020-02-25] MEDS ORDERED: HEPARIN/NS 5000 UNIT/500ML 500 ML IR ONE (10:42)
[2020-02-25] MEDS ORDERED: fentaNYL 100 MCG/2 ML INJ ONE (10:43)
[2020-02-25] MEDS ORDERED: LIDOCAINE 1%/EPINEPHRINE 1:100,000 VIAL (20 ML) INFILTRATI ONE ×2 (10:43→10:56)
[2020-02-25] MEDS ORDERED: ceFAZolin/Water 2 GM/20 ML 2 GM/20 ML SYRINGE IV ONE (10:43)
[2020-02-25] MEDS ORDERED: SODIUM CHLORIDE 0.9% 100 ML IV PRN (11:09)
--- NOTE | 2020-02-25 11:28 | Operative Report ---
Operative Report Operative Report: EXAM: 1. Fluoroscopic-guided placement of a tunneled cuffed hemodialysis catheter. DATE: 02/25/20 INDICATION: End-stage renal disease requiring hemodialysis access. MEDICATIONS: Please see nursing report for full details. DEVICES: 23 cm tip to cuff dual lumen hemodialysis catheter, palindrome THERAPIST: ANNABEL DUMONT MD CONTRAST: None PROCEDURE: The risks, benefits, and alternatives were discussed and informed consent was obtained. The patient was transported to the angiography suite in satisfactory /stable condition and was transported onto the angiography table. The patient was prepped and draped in a sterile fashion. The existing vascath was prepped and draped in a sterile fashion. Suture was cut. 0.035 inch wire was advanced through the Vas-Cath into the IVC. Vas-Cath was removed. The wire was cleaned with ChloraPrep. Over the 0.035 inch wire, serial dilatation was performed with ultimate placement of a peel-away sheath. Reverse tunneled PermCath was inserted to the peel-away sheath and positioned in the right atrium. Peel-away sheath removed. A suitable exit site was identified on the patient's chest inferior and lateral to the venotomy. The site was anesthetized with local anesthetic and the track was anesthetized. Dermatotomy was made. Reverse tunneler was then tunneled from dermatotomy to the venotomy site/catheter. The PermCath was attached to the tunneling device and reverse tunneled between the dermatotomy to the venotomy. The catheter was reassembled. 4-0 Vicryl suture was used to close the venotomy and Dermabond was then applied. 2-0 Ethilon suture was used to secure the catheter at the dermatotomy. The catheter was charged with heparin 1000 units/mL space. Sterile dressing and Biopatch applied. The patient was transferred from the angiography suite back to the floor in stable condition. FINDINGS: 1. Excellent flow was obtained through the dialysis catheter with 20 mL syringes. 2. The catheter tip is in the right atrium. IMPRESSION: 1. Fluoroscopic-guided placement of a tunneled cuffed hemodialysis catheter.
--- NOTE | 2020-02-25 15:10 | Progress Note ---
Assessment and Plan End Stage Renal Disease: -S/P perm-cath placement today -Hemodialysis today for UF and clearance -Fluid restriction of 1 liter per day -Dialysis diet -Obtain daily weights -Monitor I/O's -Discussed with field case manager Sarah to place patient at [facility] for continuum of dialysis care and nephrology follow-up with our group that is known to patient -Case management states that due to patient's current insurance [facility] was the only one accepting patient -Plan of care reviewed with Dr. Menchaca Acute chest pain Atrial fibrillation with RVR -On oral Cardizem -Back on Coumadin Hypertension: -Controlled Anemia: -LESLIE with HD -Monitor H/H Subjective Date of service: 02/25/20 Principal diagnosis: Afib with RVR, CKD/end-stage renal disease Interval history: Patient seen lying in bed. S/P perm-cath placement this morning. Objective - Vital Signs Vital signs: Vital Signs - 12hr 02/25/20 02/25/20 02/25/20 04:42 06:13 07:53 Temperature 97.6 F 98.0 F Pulse Rate 103 H 103 H 88 Respiratory 20 20 Rate Blood Pressure 109/69 109/69 99/80 O2 Sat by Pulse 95 93 Oximetry 02/25/20 10:00 Temperature Pulse Rate 92 H Respiratory Rate Blood Pressure O2 Sat by Pulse Oximetry - General Appearance General appearance: well-developed, obese, fatigue EENT: ATNC Neck: no JVD, supple Respiratory: Present: Decreased Breath Sounds Cardiology: S1S2 Gastrointestinal: normoactive bowel sounds, obese Integumentary: no rash, warm and dry Neurologic: other (Awake and alert) Musculoskeletal: joint swelling, decreased ROM - Lab 02/24/20 12:20 02/24/20 12:20 Most recent lab results Calcium 8.9 mg/dL (8.4-10.2) 02/24/20 12:20 Phosphorus 4.90 mg/dL (2.5-4.5) H 02/21/20 12:28 Medications & Allergies - Medications Allergies/Adverse Reactions: Allergies No Known Allergies Allergy (Unverified 08/09/13 15:10) Home Medications: Home Medications Medication Instructions Recorded Confirmed Last Taken Type ISOSORBIDE MONOnitrate [Imdur ER] 10 mg PO BID 11/21/19 02/16/20 12/07/19 22:00 History Nitroglycerin [Nitrostat] 0.4 mg SL Q5M PRN 11/21/19 02/16/20 Unknown History Warfarin [Coumadin] 7.5 mg PO QDAY 11/22/19 02/16/20 12/07/19 History Lidocaine Topical 5% [Xylocaine 1 applic TP DAILY #1 tube 11/27/19 02/16/20 12/07/19 Rx Topical 5%] Amiodarone [Cordarone 200 MG TAB] 200 mg PO QDAY 12/02/19 02/16/20 12/07/19 10:00 History AtorvaSTATin [Lipitor] 40 mg PO QHS 12/02/19 02/16/20 12/07/19 22:00 History Cyanocobalamin (Vitamin B-12) 1,000 mcg PO QDAY 12/02/19 02/16/20 12/07/19 10:00 History [Vitamin B-12] Furosemide [Lasix TAB] 40 mg PO QDAY #30 tablet 12/07/19 02/16/20 12/07/19 10:00 Rx Aspirin [Aspirin BABY CHEW TAB] 81 mg PO QDAY 12/18/19 02/16/20 12/07/19 History Ferrous Sulfate [Feosol 325 MG tab] 325 mg PO BID #60 tablet 02/21/20 Unknown Rx Magnesium Hydroxide [Milk of 30 ml PO Q4H PRN #20 oral.liqd 02/21/20 Unknown Rx Magnesia] dilTIAZem [Cardizem] 90 mg PO Q8HR #90 tablet 02/21/20 Unknown Rx Midodrine [Proamatine] 5 mg PO TID@0800,1200,1600 #90 02/25/20 Unknown Rx tablet Active Medications: Generic Name Dose Route Start Last Admin Trade Name Freq PRN Reason Stop Dose Admin Acetaminophen 650 mg 02/14/20 22:10 Tylenol PO Q4H PRN Pain MILD(1-3)/Fever >100.5/ESQUIVEL Aspirin 325 mg 02/15/20 10:00 02/24/20 09:48 Ecotrin PO Not Given QDAY BHAVANI Diltiazem HCl 90 mg 02/15/20 10:00 02/25/20 06:13 Cardizem PO 90 mg Q8HR BHAVANI Administration Epoetin Tim[place]o 20,000 unit 02/18/20 12:47 02/21/20 17:06 Procrit IV 20,000 unit KIMMIE PRN Administration hemodialysis Ferrous Sulfate 325 mg 02/20/20 10:00 02/24/20 21:33 Feosol PO 325 mg BID BHAVANI Administration Guaifenesin 200 mg 02/17/20 15:12 02/17/20 15:24 Robitussin PO 200 mg Q4H PRN Administration Cough Sodium Chloride 100 mls @ 999 mls/hr 02/25/20 11:09 Nacl 0.9% IV KIMMIE PRN Hypotension Magnesium Hydroxide 30 ml 02/14/20 22:10 Milk Of Magnesia PO Q4H PRN Constipation Midodrine 5 mg 02/24/20 09:29 02/24/20 17:40 Proamatine PO Not Given TID@0800,1200,1600 [facility] Morphine Sulfate 2 mg 02/14/20 22:10 Morphine IV Q5MIN PRN Chest Pain unrelieved by NTG Nitroglycerin 0.4 mg 02/14/20 22:10 Nitrostat SL Q5M PRN Chest Pain Ondansetron HCl 4 mg 02/14/20 22:10 Zofran IV Q8H PRN Nausea And Vomiting Sodium Chloride 10 ml 02/15/20 10:00 02/25/20 06:00 Sodium Chloride Flush Syringe 10 Ml IV 10 ml BID BHAVANI Administration Sodium Chloride 10 ml 02/14/20 22:10 02/24/20 22:00 Sodium Chloride Flush Syringe 10 Ml IV 10 ml PRN PRN Administration LINE FLUSH Warfarin Sodium 7.5 mg 02/20/20 17:00 02/24/20 17:40 Coumadin PO Not Given 1700 [facility] Protocol
[2020-02-25 16:50] LABS: Calcium 8.6 mg/dL (8.4-10.2)
[2020-02-25] MEDS: MIDODRINE 2.5 MG TAB PO SCH ×3 (19:00→19:40)
--- NOTE | 2020-02-25 19:29 | Progress Note ---
Assessment and Plan Assessment and plan: 69-year-old female with known history of atrial fibrillation, hypertension, CHF and chronic kidney disease. Presenting to the emergency room today complaining of midsternal chest pressure and shortness of breath. Symptoms were said to have started earlier this evening. She has had some mild cough which is nonproductive. There is no no relieving or exacerbating factor for chest pain. Has been no radiation. She denies any fever or chills, no nausea vomiting, no diarrhea, no headache or dizziness. She denies any recent travel and no sick contacts. Upon arrival in the emergency room patient was found to be in atrial fibrillation with RVR. She had a dose of IV Cardizem with some improvement in heart rate. Not on dialysis A. fib with rate controlled Day #2 Symptomatically better Admitted for atrial fibrillation with RVR and chest pain Day #3 Stress test could not be done because of patient not being able to lie still Day #4 Patient has epistaxis Right nasal packing was done Day #5 Epistaxis resolved For permacath tomorrow day 6: Refused, Permacth, wants to re-evaluate in am. case management to work on dialysis chair, will also attempt to speak with family if patient permits. Morbid Obesity: weightloss counselling provided for 15 mins 02/21: Patient is status post Vas-Cath. Unfortunately cannot be discharged with a Vas-Cath attempt to change to a permacath was refused by the patient. We will continue to monitor per nephrology we will attempt vascular cath changed to permacath on Tuesday morning and plan for discharge. COVID-19 testing has been obtained in anticipation for discharge. 02/22: Yesterday stopped dialysis after just one hour. said she was tired. midodrine added for BP. Due to patients non compliance and possing repeated barriers to her treatment, hospice will be discussed with the patient. Refusing Meds, Counselling provided. 02/23: Tachycardia secondary to refusing meds. Would do IV BB but the BP precludes, will increase Midodrine to 5mg PO TID. Advance care counselling 35 mins. We will keep patient n.p.o. for planned permacath placement tomorrow. 02/24: Patient went for permacath placement Vas-Cath was removed. Dialysis was done anticipate discharge today but this was held due to facility requesting the coronavirus testing. Await results and discharge in a.m. (1) NSTEMI Current Visit: Yes Status: Acute Plan to address problem: Stress test could not be done Troponins elevated Stress could not be done because patient was not able to lie still Troponins elevated because of the kidney failure Will defer to cardiology order stress test' (2) Atrial fibrillation with RVR Current Visit: Yes Status: Acute Plan to address problem: Patient had a dose of Cardizem upon arrival in the emergency room. Rate is better controlled. Patient has known history of atrial fibrillation and has been on anticoagulation. Patient follows up with a tool lathe operator at [facility]. Cardiology consult Rate better controlled (3) Acute on chronic renal failure Current Visit: Yes Status: Acute Qualifiers: Acute renal failure type: unspecified Chronic kidney disease stage: unspecified stage Qualified Code(s): N17.9 - Acute kidney failure, unspecified; N18.9 - Chronic kidney disease, unspecified Plan to address problem: Will monitor BUN and creatinine. BUN/creatinine high May need dialysis Nephrology consult initiated Patient apparently had dialysis in the past Baseline creatinine was 2.1 in January which has gone up to 6.3 Patient may end up on dialysis (4) Subtherapeutic international normalized ratio (INR) Current Visit: Yes Status: Acute Plan to address problem: We will monitor PT/INR. Will adjust Coumadin as needed. Coumadin discontinued Eliquis to be started from 02/19/2020 after Vas-Cath procedure (5) Anemia of chronic disease Monitor closely, Start on iron supplementation (6) DVT prophylaxis Current Visit: No Status: Acute Plan to address problem: Patient currently on anticoagulation. INR is subtherapeutic. (7) Full code status Current Visit: Yes Status: Acute History Interval history: Patient seen and examined, status post permacath placement today. Hospitalist Physical - Physical exam Narrative exam: VITAL SIGNS: Reviewed. GENERAL: The patient appears normally developed, obese, lethargic. Vital signs as documented. HEAD: No signs of head trauma. EYES: Pupils are equal. Extraocular motions intact. EARS: Hearing grossly intact. MOUTH: Oropharynx is normal. NECK: No adenopathy, no JVD. CHEST: Chest with clear breath sounds bilaterally. No wheezes, rales, or rhonchi. CARDIAC: Tachycardia. S1 and S2, without murmurs, gallops, or rubs. VASCULAR: Right IJ Vas-Cath. No Edema. Peripheral pulses normal and equal in all extremities. ABDOMEN: Soft, non tender and non distended. No rebound or guarding, and no masses palpated. Bowel Sounds normal. MUSCULOSKELETAL: Good range of motion of all major joints. Extremities without clubbing, cyanosis or edema. NEUROLOGIC EXAM: Alert and oriented x 3 No focal sensory or strength defi cits. Speech normal. Follows commands. PSYCHIATRIC: Mood normal. SKIN: detial exam as documented in skin assessment - Constitutional Vitals: Temp Pulse Resp BP Pulse Ox 98.9 F 102 H 20 112/64 94 02/25/20 16:00 02/25/20 16:00 02/25/20 16:00 02/25/20 16:00 02/25/20 16:00 General appearance: Present: no acute distress, well-nourished, obese HEART Score - HEART Score EKG: Non-specific Age: > 65 Risk factors: > 3 risk factors or hx of atherosclerotic disease Troponin: Troponin T 0.066 ng/mL (0.00-0.029) H D 02/15/20 07:45 Troponin: < normal limit - Critical Actions Critical Actions: 4-6 pts:12-16.6% risk of adverse cardiac event. Should be admitted Results - Labs CBC & Chem 7: 02/24/20 12:20 02/25/20 15:30 Labs: Laboratory Last Values WBC 6.0 K/mm3 (4.5-11.0) 02/24/20 12:20 RBC 3.30 M/mm3 (3.65-5.03) L 02/24/20 12:20 Hgb 8.4 gm/dl (10.1-14.3) L 02/24/20 12:20 Hct 26.3 % (30.3-42.9) L 02/24/20 12:20 MCV 80 fl (79-97) 02/24/20 12:20 MCH 26 pg (28-32) L 02/24/20 12:20 MCHC 32 % (30-34) 02/24/20 12:20 RDW 19.8 % (13.2-15.2) H 02/24/20 12:20 Plt Count 192 K/mm3 (140-440) 02/24/20 12:20 Lymph % (Auto) 9.3 % (13.4-35.0) L 02/17/20 16:26 [place] % (Auto) 3.4 % (0.0-7.3) 02/17/20 16:26 Eos % (Auto) 1.9 % (0.0-4.3) 02/17/20 16:26 Baso % (Auto) 1.1 % (0.0-1.8) 02/17/20 16:26 Lymph # 0.8 K/mm3 (1.2-5.4) L 02/17/20 16:26 [place] # 0.3 K/mm3 (0.0-0.8) 02/17/20 16: Eos # 0.2 K/mm3 (0.0-0.4) 02/17/20 16: Baso # 0.1 K/mm3 (0.0-0.1) 02/17/20 16:26 Seg Neutrophils % 84.3 % (40.0-70.0) H 02/17/20 16:26 Seg Neutrophils # 7.2 K/mm3 (1.8-7.7) 02/17/20 16:26 PT 16.1 Sec. (12.2-14.9) H 02/25/20 05:39 INR 1.27 (0.87-1.13) H 02/25/20 05:39 Sodium 138 mmol/L (137-145) 02/25/20 15:30 Potassium 4.1 mmol/L (3.6-5.0) 02/25/20 15:30 Chloride 99.3 mmol/L (98-107) 02/25/20 15:30 Carbon Dioxide 26 mmol/L (22-30) 02/25/20 15:30 Anion Gap 17 mmol/L 02/25/20 15:30 BUN 38 mg/dL (7-17) H 02/25/20 15:30 Creatinine 3.0 mg/dL (0.7-1.2) H 02/25/20 15:30 Estimated GFR 19 ml/min 02/25/20 15:30 BUN/Creatinine Ratio 13 % 02/25/20 15:30 Glucose 87 mg/dL (65-100) 02/25/20 15:30 Calcium 8.6 mg/dL (8.4-10.2) 02/25/20 15:30 Phosphorus 4.90 mg/dL (2.5-4.5) H 02/21/20 12:28 Total Bilirubin 0.70 mg/dL (0.1-1.2) 02/21/20 04:24 AST 15 units/L (5-40) 02/21/20 04:24 ALT 27 units/L (7-56) 02/21/20 04:24 Alkaline Phosphatase 105 units/L (35-129) 02/21/20 04:24 Troponin T 0.066 ng/mL (0.00-0.029) H D 02/15/20 07:45 Total Protein 6.9 g/dL (6.3-8.2) 02/21/20 04:24 Albumin 3.0 g/dL (3.9-5) L 02/21/20 04:24 Albumin/Globulin Ratio 0.8 % 02/21/20 04:24 Triglycerides 82 mg/dL (2-149) 02/14/20 20:06 Cholesterol 118 mg/dL (50-199) 02/14/20 20:06 LDL Cholesterol Direct 72 mg/dL (50-130) 02/14/20 20:06 HDL Cholesterol 33 mg/dL (40-59) L 02/14/20 20:06 Cholesterol/HDL Ratio 3.57 % 02/14/20 20:06 Coronavirus (PCR) Negative (Negative) 02/21/20 Unknown Hepatitis A IgM Ab -1 (NonReactive) 02/18/20 17:13 Hep Bs Antigen Non-reactive (Negative) 02/18/20 17:13 Hep B Core IgM Ab Non-reactive (NonReactive) 02/18/20 17:13 Hepatitis C Antibody Non-reactive (NonReactive) 02/18/20 17:13 Martinez/IV: Voiding Method Incontinent IV Catheter Type [Left Hand] INT / Saline Lock IV Catheter Type [Right VAS Cath Internal Jugular] Active Medications - Current Medications Current Medications: Generic Name Dose Route Start Last Admin Trade Name Freq PRN Reason Stop Dose Admin Acetaminophen 650 mg 02/14/20 22:10 Tylenol PO Q4H PRN Pain MILD(1-3)/Fever >100.5/ESQUIVEL Aspirin 325 mg 02/15/20 10:00 02/24/20 09:48 Ecotrin PO Not Given QDAY BHAVANI Diltiazem HCl 90 mg 02/15/20 10:00 02/25/20 06:13 Cardizem PO 90 mg Q8HR BHAVANI Administration Epoetin Timoteo 20,000 unit 02/18/20 12:47 02/21/20 17:06 Procrit IV 20,000 unit KIMMIE PRN Administration hemodialysis Ferrous Sulfate 325 mg 02/20/20 10:00 02/24/20 21:33 Feosol PO 325 mg BID [facility] Administration Guaifenesin 200 mg 02/17/20 15:12 02/17/20 15:24 Robitussin PO 200 mg Q4H PRN Administration Cough Sodium Chloride 100 mls @ 999 mls/hr 02/25/20 11:09 Nacl 0.9% IV KIMMIE PRN Hypotension Magnesium Hydroxide 30 ml 02/14/20 22:10 Milk Of Magnesia PO Q4H PRN Constipation Midodrine 5 mg 02/24/20 09:29 02/24/20 17:40 Proamatine PO Not Given TID@0800,1200,1600 [facility] Morphine Sulfate 2 mg 02/14/20 22:10 Morphine IV Q5MIN PRN Chest Pain unrelieved by NTG Nitroglycerin 0.4 mg 02/14/20 22:10 Nitrostat SL Q5M PRN Chest Pain Ondansetron HCl 4 mg 02/14/20 22:10 Zofran IV Q8H PRN Nausea And Vomiting Sodium Chloride 10 ml 02/15/20 10:00 02/25/20 06:00 Sodium Chloride Flush Syringe 10 Ml IV 10 ml BID BHAVANI Administration Sodium Chloride 10 ml 02/14/20 22:10 02/24/20 22:00 Sodium Chloride Flush Syringe 10 Ml IV 10 ml PRN PRN Administration LINE FLUSH Warfarin Sodium 7.5 mg 02/20/20 17:00 02/24/20 17:40 Coumadin PO Not Given 1700 [facility] Protocol Nutrition/Malnutrition Assess - Dietary Evaluation Nutrition/Malnutrition Findings: Nutrition Notes Start: 02/15/20 14:25 Freq: Status: Active Protocol: Document 02/21/20 11:13 ZHENG (Rec: 02/21/20 11:21 ZHENG [email or web address] 1) Nutrition Notes Initial or Follow up Reassessment Current Diagnosis Hypertension,Heart Failure Other Pertinent Diagnosis afib with RVR, acute on chronic renal failure Current Diet Renal + 1L fluid restriction Labs/Tests BUN 130 Cr 6.2 Pertinent Medications Feosol, Coumadin Height 5 ft 8 in Weight 145 kg [place] Body Weight (kg) 63.63 BMI 48.6 Weight Status Morbidly Obese Subjective/Other Information Unable to reach pt vis phone ( 11:10). DNI education not needed as pt reported familiarity with low vit K diet during a 12/10/19 dietary assessment. She consumed 75% of three meals documented yesterday. Pt has been refusing Permcath placement for HD. D/C summary written this am. Burn Absent Trauma Absent Minimum of two criteria No physical signs of malnutrition #1 Nutrition Diagnosis Increased nutrient needs ( specify in comment below) Diagnosis Progress(for reassessment Continues documentation) Is patient on ventilator? No Is Patient Ambulatory and/or Out of Bed No REE-(Elbert-St. Jeor-confined to bed) 2444.892 Kcal/Kg value to use for calculation 13 Approximate Energy Requirements Using 1885 kcal/Kg Calculation Used for Recommendations Kcal/kg Additional Notes Pro needs 1.25-1.5g/kg adjBW: 130-156g/day Fluid needs 1L/day Nutrition Intervention Change Diet Order: Continue current diet order Goal #1 PO intake to meet at least 75% energy and pro needs Follow-Up By: 02/26/20 Additional Comments F/U: intakes, initiation of HD
[2020-02-25] MEDS: FERROUS SULFATE 325 MG TAB PO SCH ×2 (19:35→21:35)
[2020-02-25] MEDS: WARFARIN 7.5 MG TAB PO SCH (19:37)
[2020-02-25] MEDS: ASPIRIN EC 325 MG TAB PO SCH (19:39)
[2020-02-26 06:33] LABS: INR 1.31 (0.87-1.13)
--- NOTE | 2020-02-26 08:12 | Discharge Summary ---
<AUGUSTOJADAJUAN ANTONIO ChaseLeticia - Last Filed: 02/26/20 15:20> Providers - Providers Date of Admission: 02/14/20 21:31 Attending physician: SERINA CARLOS 02/14/20 Consult to Cardiac Rehabilitation [CONS] Routine Reason For Exam: Phase I 02/15/20 07:09 Consult to Wound/ET Nurse [CONS] Routine Reason For Exam: wound eval 02/16/20 18:44 Consult to Physician [CONS] Routine Comment: Consulting Provider: LUCHO LUNSFORD Physician Instructions: Reason For Exam: CKD/Esrd 02/18/20 11:56 Consult to Interventional Radiology [CONS] Routine Consulting Provider: ANNABEL KIRK Reason For Exam: Perm-cath placement Place consult to:: VASCULAR Notified:: YES Phone number called:: - Was contact made?: Yes Time called:: 12:59 Comment:: DR DUMONT ALREADY AWARE MADE NOTE AT 1246 . 02/18/20 12:37 Consult to Case Management [CONS] Routine Services Needed at Discharge: Other Notified:: FIELD ENUMERATOR Comment:: Outpatient HD placement to [facility]-[address] [place] [address] 02/21/20 10:13 Occupational Therapy Evaluate and Treat [CONS] Routine Comment: Reason For Exam: ATAXIA Physical Therapy Evaluation and Treat [CONS] Routine Comment: Reason For Exam: ATAXIA 02/21/20 13:13 Consult to Case Management [CONS] Routine Services Needed at Discharge: Other Notified:: case management Additional Physician Instructions: Address: [address] [place] [address] 02/23/20 13:35 Consult to Mental Health [CONS] Routine Reason For Exam: depression 02/24/20 09:55 Consult to Dietitian/Nutrition [CONS] Routine Physician Instructions: Reason For Exam: Reason for Consult: Poor oral intake Hospitalization Condition: Stable Hospital course: 69-year-old female with known history of atrial fibrillation, hypertension, CHF and chronic kidney disease. Presenting to the emergency room today complaining of midsternal chest pressure and shortness of breath. Upon arrival in the emergency room patient was found to be in atrial fibrillation with RVR which is no controlled. Her hypertension is now controlled on PO antihypertensives. She is now in CKD an on HD s/p permcath placement. She is now on Coumadin for her atrial fibrillation. Her two COVID test were negative on 02/23 and 02/25. Disposition: DC/[place]-03 SNF [facility] - Discharge Diagnoses (1) Atrial fibrillation with RVR Status: Acute (2) Acute on chronic renal failure Status: Acute Qualifiers: Qualified Code(s): N17.9 - Acute kidney failure, unspecified; N18.9 - Chronic kidney disease, unspecified (3) Chronic heart failure with preserved ejection fraction (HFpEF) Status: Chronic (4) HTN (hypertension) Status: Chronic Qualifiers: Hypertension type: essential hypertension Qualified Code(s): I10 - Essential (primary) hypertension (5) Anemia Status: Acute Qualifiers: Anemia type: due to chronic kidney disease Chronic kidney disease stage: on chronic dialysis Qualified Code(s): N18.6 - End stage renal disease; D63.1 - Anemia in chronic kidney disease; Z99.2 - Dependence on renal dialysis Core Measure Documentation - Palliative Care Palliative Care/ Comfort Measures: Not Applicable Exam - Constitutional Vitals: Temp Pulse Resp BP Pulse Ox 98.0 F 124 H 20 103/73 92 02/26/20 05:03 02/26/20 05:03 02/26/20 05:03 02/26/20 05:03 02/26/20 05:03 General appearance: Present: no acute distress - EENT Eyes: Present: PERRL, EOM intact ENT: hearing intact, clear oral mucosa - Neck Neck: Present: supple, normal ROM - Respiratory Respiratory effort: normal Respiratory: bilateral: diminished - Cardiovascular Rhythm: irregularly irregular Heart Sounds: Present: S1 & S2 - Extremities Extremities: pulses intact, pulses symmetrical, normal temperature, normal color, Full ROM Extremity abnormal: edema Peripheral Pulses: within normal limits - Abdominal General gastrointestinal: Present: soft, non-tender, normal bowel sounds - Integumentary Integumentary: Present: clear, warm, dry - Musculoskeletal Musculoskeletal: strength equal bilaterally - Psychiatric Psychiatric: appropriate mood/affect, cooperative - Neurologic Neurologic: CNII-XII intact, no focal deficits, moves all extremities - Allied Health Allied health notes reviewed: nursing, social work, case management Plan Diet: renal Follow up with: RENETTA VILLARREAL [Other] - 7 Days LUCHO LUNSFORD MD [Staff Physician] - 7 Days BELLE BECKER MD [Referring] - 7 Days Forms: Warfarin Discharge Instruction Prescriptions: dilTIAZem [Cardizem] 90 mg PO Q8HR #90 tablet Ferrous Sulfate [Feosol 325 MG tab] 325 mg PO BID #60 tablet Magnesium Hydroxide [Milk of Magnesia] 30 ml PO Q4H PRN #20 oral.liqd PRN Reason: Constipation Midodrine [Proamatine] 5 mg PO TID@0800,1200,1600 #90 tablet <SERINA CARLOS R - Last Filed: 02/27/20 07:27> Providers - Providers Date of Admission: 02/14/20 21:31 Attending physician: SERINA CARLOS 02/14/20 Consult to Cardiac Rehabilitation [CONS] Routine Reason For Exam: Phase I 02/15/20 07:09 Consult to Wound/ET Nurse [CONS] Routine Reason For Exam: wound eval 02/16/20 18:44 Consult to Physician [CONS] Routine Comment: Consulting Provider: LUCHO LUNSFORD Physician Instructions: Reason For Exam: CKD/Esrd 02/18/20 11:56 Consult to Interventional Radiology [CONS] Routine Consulting Provider: ANNABEL KIRK Reason For Exam: Perm-cath placement Place consult to:: VASCULAR Notified:: YES Phone number called:: - Was contact made?: Yes Time called:: 12:59 Comment:: DR DUMONT ALREADY AWARE MADE NOTE AT 1246 . 02/18/20 12:37 Consult to Case Management [CONS] Routine Services Needed at Discharge: Other Notified:: FIELD ENUMERATOR Comment:: Outpatient HD placement to [facility]-[address] [place] [address] 02/21/20 10:13 Occupational Therapy Evaluate and Treat [CONS] Routine Comment: Reason For Exam: ATAXIA Physical Therapy Evaluation and Treat [CONS] Routine Comment: Reason For Exam: ATAXIA 02/21/20 13:13 Consult to Case Management [CONS] Routine Services Needed at Discharge: Other Notified:: case management Additional Physician Instructions: Address: [address] [place] [id number] 02/23/20 13:35 Consult to Mental Health [CONS] Routine Reason For Exam: depression 02/24/20 09:55 Consult to Dietitian/Nutrition [CONS] Routine Physician Instructions: Reason For Exam: Reason for Consult: Poor oral intake Core Measure Documentation - Palliative Care Palliative Care/ Comfort Measures: Not Applicable - Core Measures Any of the following diagnoses?: none Exam - Constitutional Vitals: Temp Pulse Resp BP Pulse Ox 97.9 F 102 H 20 126/88 95 02/26/20 15:48 02/26/20 18:00 02/26/20 18:00 02/26/20 15:48 02/26/20 15:48 Plan Activity: advance as tolerated Weight Bearing Status: Weight Bear as Tolerated
--- NOTE | 2020-02-26 08:41 | Progress Note ---
Assessment and Plan End Stage Renal Disease: -S/P perm-cath placement 02/24 -no indciation for HD today -Fluid restriction of 1 liter per day -Dialysis diet -Obtain daily weights -Monitor I/O's -Discussed with window caser Sarah to place patient at [facility] for continuum of dialysis care and nephrology follow-up with our group that is known to patient -Case management states that due to patient's current insurance [facility] was the only one accepting patient Acute chest pain Atrial fibrillation with RVR -On oral Cardizem -Back on Coumadin Hypertension: -Controlled Anemia: -LESLIE with HD -Monitor H/H Subjective Date of service: 02/26/20 Principal diagnosis: Afib with RVR, CKD/end-stage renal disease Interval history: tolerated HD today Objective - Vital Signs Vital signs: Vital Signs - 12hr 02/25/20 02/26/20 23:35 05:03 Temperature 98.0 F Pulse Rate 118 H 124 H Respiratory 20 20 Rate Blood Pressure 132/81 103/73 O2 Sat by Pulse 94 92 Oximetry - Lab 02/24/20 12:20 02/25/20 15:30 Most recent lab results Calcium 8.6 mg/dL (8.4-10.2) 02/25/20 15:30 Phosphorus 4.90 mg/dL (2.5-4.5) H 02/21/20 12:28 Medications & Allergies - Medications Allergies/Adverse Reactions: Allergies No Known Allergies Allergy (Unverified 08/09/13 15:10) Home Medications: Home Medications Medication Instructions Recorded Confirmed Last Taken Type ISOSORBIDE MONOnitrate [Imdur ER] 10 mg PO BID 11/21/19 02/16/20 12/07/19 22:00 History Nitroglycerin [Nitrostat] 0.4 mg SL Q5M PRN 11/21/19 02/16/20 Unknown History Warfarin [Coumadin] 7.5 mg PO QDAY 11/22/19 02/16/20 12/07/19 History Lidocaine Topical 5% [Xylocaine 1 applic TP DAILY #1 tube 11/27/19 02/16/20 12/07/19 Rx Topical 5%] Amiodarone [Cordarone 200 MG TAB] 200 mg PO QDAY 12/02/19 02/16/20 12/07/19 10:00 History AtorvaSTATin [Lipitor] 40 mg PO QHS 12/02/19 02/16/20 12/07/19 22:00 History Cyanocobalamin (Vitamin B-12) 1,000 mcg PO QDAY 12/02/19 02/16/20 12/07/19 10:00 History [Vitamin B-12] Furosemide [Lasix TAB] 40 mg PO QDAY #30 tablet 12/07/19 02/16/20 12/07/19 10:00 Rx Aspirin [Aspirin BABY CHEW TAB] 81 mg PO QDAY 12/18/19 02/16/20 12/07/19 History Ferrous Sulfate [Feosol 325 MG tab] 325 mg PO BID #60 tablet 02/21/20 Unknown Rx Magnesium Hydroxide [Milk of 30 ml PO Q4H PRN #20 oral.liqd 02/21/20 Unknown Rx Magnesia] dilTIAZem [Cardizem] 90 mg PO Q8HR #90 tablet 02/21/20 Unknown Rx Midodrine [Proamatine] 5 mg PO TID@0800,1200,1600 #90 02/25/20 Unknown Rx tablet Active Medications: Generic Name Dose Route Start Last Admin Trade Name Freq PRN Reason Stop Dose Admin Acetaminophen 650 mg 02/14/20 22:10 Tylenol PO Q4H PRN Pain MILD(1-3)/Fever >100.5/ESQUIVEL Aspirin 325 mg 02/15/20 10:00 02/25/20 19:39 Ecotrin PO 325 mg QDAY BHAVANI Administration Diltiazem HCl 90 mg 02/15/20 10:00 02/25/20 21:35 Cardizem PO Not Given Q8HR BHAVANI Epoetin Timoteo 20,000 unit 02/18/20 12:47 02/21/20 17:06 Procrit IV 20,000 unit KIMMIE PRN Administration hemodialysis Ferrous Sulfate 325 mg 02/20/20 10:00 02/25/20 21:35 Feosol PO Not Given BID BHAVANI Guaifenesin 200 mg 02/17/20 15:12 02/17/20 15:24 Robitussin PO 200 mg Q4H PRN Administration Cough Sodium Chloride 100 mls @ 999 mls/hr 02/25/20 11:09 Nacl 0.9% IV KIMMIE PRN Hypotension Magnesium Hydroxide 30 ml 02/14/20 22:10 Milk Of Magnesia PO Q4H PRN Constipation Midodrine 5 mg 02/24/20 09:29 02/25/20 19:40 Proamatine PO 5 mg TID@0800,1200,1600 BHAVANI Administration Morphine Sulfate 2 mg 02/14/20 22:10 Morphine IV Q5MIN PRN Chest Pain unrelieved by NTG Nitroglycerin 0.4 mg 02/14/20 22:10 Nitrostat SL Q5M PRN Chest Pain Ondansetron HCl 4 mg 02/14/20 22:10 Zofran IV Q8H PRN Nausea And Vomiting Sodium Chloride 10 ml 02/15/20 10:00 02/25/20 21:35 Sodium Chloride Flush Syringe 10 Ml IV 10 ml BID BHAVANI Administration Sodium Chloride 10 ml 02/14/20 22:10 02/24/20 22:00 Sodium Chloride Flush Syringe 10 Ml IV 10 ml PRN PRN Administration LINE FLUSH Warfarin Sodium 7.5 mg 02/20/20 17:00 02/25/20 19:37 Coumadin PO 7.5 mg 1700 BHAVANI Administration Protocol
[2020-02-26] MEDS: MIDODRINE 2.5 MG TAB PO SCH ×3 (11:16→17:45)
[2020-02-26] MEDS: FERROUS SULFATE 325 MG TAB PO SCH (11:17)
[2020-02-26] MEDS: ASPIRIN EC 325 MG TAB PO SCH (11:28)
[2020-02-26 11:32] LABS: Calcium 8.9 mg/dL (8.4-10.2)
--- NOTE | 2020-02-26 13:52 | Progress Note ---
Assessment and Plan Disposition Plan: awaiting 2nd COVID test results - Patient Problems (1) Atrial fibrillation with RVR Current Visit: Yes Status: Acute Plan to address problem: - On Diltiazem q 8 hour - Remote telemetry - Patient has known history of atrial fibrillation and has been on anticoagulation. Patient follows up with a seamer operator at [facility]. - Cardiology consult: cardiology signed off. Recommend follow up with Dr. Lamb at [place] within 1 week of hospital discharge for f/u and INR check (2) Acute on chronic renal failure Current Visit: Yes Status: Acute Qualifiers: Qualified Code(s): N17.9 - Acute kidney failure, unspecified; N18.9 - Chronic kidney disease, unspecified Plan to address problem: - Trend BUN and creatinine - Nephrology consult initiated - On HD - CM secured HD chair but awaiting pending COVID-19 test # 2 - Avoid nephrotoxic medications (3) Chronic heart failure with preserved ejection fraction (HFpEF) Current Visit: Yes Status: Chronic (4) HTN (hypertension) Current Visit: Yes Status: Chronic Qualifiers: Hypertension type: essential hypertension Qualified Code(s): I10 - Essential (primary) hypertension (5) Anemia Current Visit: Yes Status: Acute Qualifiers: Anemia type: due to chronic kidney disease Chronic kidney disease stage: on chronic dialysis Qualified Code(s): N18.6 - End stage renal disease; D63.1 - Anemia in chronic kidney disease; Z99.2 - Dependence on renal dialysis Plan to address problem: - Epogen with HD - Iron supplement (6) Subtherapeutic international normalized ratio (INR) Current Visit: Yes Status: Acute Plan to address problem: - Monitoring PT/INR and adjust Coumadin as needed per pharmacy (7) DVT prophylaxis Current Visit: No Status: Acute Plan to address problem: - Patient currently on anticoagulation. - INR is subtherapeutic History Interval history: 69-year-old female with known history of atrial fibrillation, hypertension, CHF and chronic kidney disease. Presenting to the emergency room today complaining of midsternal chest pressure and shortness of breath. She was found to be in A. fib w/ RVR and CKD now on HD s/p permcath. Needs covid testing x2, HD chair secured pending second COVID test. Covid 19 negative on 02/21. She states she is ready to leave the hospital. COVID test 7/21 was negative. 02/14: Symptomatically better 02/15: Stress test could not be done because of patient not being able to lie still 02/16: Patient has epistaxis. Right nasal packing was done 02/17 Epistaxis resolved; For permacath tomorrow 02/18: Refused, Permacth, wants to re-evaluate in am. case management to work on dialysis chair, will also attempt to speak with family if patient permits. Morbid Obesity: weight loss counselling provided for 15 mins. 02/19: Coumadin restarted. 02/20: Agreed to vascath placement and HD after. 02/21: Patient is status post Vas-Cath. Unfortunately cannot be discharged with a Vas-Cath attempt to change to a permacath was refused by the patient. COVID-19 testing has been obtained in anticipation for discharge. 02/22: Yesterday stopped dialysis after just one hour, said she was tired. midodrine added for BP. Due to patients non compliance and posing repeated barriers to her treatment, hospice will be discussed with the patient. Refusing Meds, Counselling provided. 02/23: Tachycardia secondary to refusing meds. IV BB but the BP precludes, will increase Midodrine to 5mg PO TID. Advance care counselling 35 mins. 02/24: Patient went for permacath placement Vas-Cath was removed. Dialysis was done anticipate discharge but this was held due to facility requesting the coronavirus testing. Hospitalist Physical - Constitutional Vitals: Temp Pulse Resp BP Pulse Ox 97.3 F L 124 H 19 134/82 96 02/26/20 12:33 02/26/20 12:33 02/26/20 12:33 02/26/20 12:33 02/26/20 12:33 General appearance: Present: no acute distress - EENT Eyes: Present: PERRL, EOM intact ENT: hearing intact, clear oral mucosa - Neck Neck: Present: supple, normal ROM - Respiratory Respiratory effort: normal Respiratory: bilateral: diminished - Cardiovascular Rhythm: irregularly irregular Heart Sounds: Present: S1 & S2. Absent: systolic murmur, diastolic murmur - Extremities Extremities: no ischemia, pulses intact, pulses symmetrical, normal temperature, normal color Peripheral Pulses: within normal limits - Abdominal General gastrointestinal: soft, non-tender, normal bowel sounds - Integumentary Integumentary: Present: clear, warm, dry - Psychiatric Psychiatric: appropriate mood/affect, cooperative - Neurologic Neurologic: CNII-XII intact, no focal deficits, moves all extremities - Allied Health Allied health notes reviewed: nursing, social work, case management HEART Score - HEART Score EKG: Non-specific Age: > 65 Risk factors: > 3 risk factors or hx of atherosclerotic disease Troponin: Troponin T 0.066 ng/mL (0.00-0.029) H D 02/15/20 07:45 Troponin: < normal limit - Critical Actions Critical Actions: 4-6 pts:12-16.6% risk of adverse cardiac event. Should be admitted Results - Labs CBC & Chem 7: 02/24/20 12:20 02/26/20 10:43 Labs: Laboratory Last Values WBC 6.0 K/mm3 (4.5-11.0) 02/24/20 12:20 RBC 3.30 M/mm3 (3.65-5.03) L 02/24/20 12:20 Hgb 8.4 gm/dl (10.1-14.3) L 02/24/20 12:20 Hct 26.3 % (30.3-42.9) L 02/24/20 12:20 MCV 80 fl (79-97) 02/24/20 12:20 MCH 26 pg (28-32) L 02/24/20 12:20 MCHC 32 % (30-34) 02/24/20 12:20 RDW 19.8 % (13.2-15.2) H 02/24/20 12:20 Plt Count 192 K/mm3 (140-440) 02/24/20 12:20 Lymph % (Auto) 9.3 % (13.4-35.0) L 02/17/20 16:26 [place] % (Auto) 3.4 % (0.0-7.3) 02/17/20 16:26 Eos % (Auto) 1.9 % (0.0-4.3) 02/17/20 16:26 Baso % (Auto) 1.1 % (0.0-1.8) 02/17/20 16:26 Lymph # 0.8 K/mm3 (1.2-5.4) L 02/17/20 16:26 [place] # 0.3 K/mm3 (0.0-0.8) 02/17/20 16:26 Eos # 0.2 K/mm3 (0.0-0.4) 02/17/20 16:26 Baso # 0.1 K/mm3 (0.0-0.1) 02/17/20 16:26 Seg Neutrophils % 84.3 % (40.0-70.0) H 02/17/20 16:26 Seg Neutrophils # 7.2 K/mm3 (1.8-7.7) 02/17/20 16:26 PT 16.6 Sec. (12.2-14.9) H 02/26/20 04:53 INR 1.31 (0.87-1.13) H 02/26/20 04:53 Sodium 137 mmol/L (137-145) 02/26/20 10:43 Potassium 3.5 mmol/L (3.6-5.0) L 02/26/20 10:43 Chloride 97.8 mmol/L (98-107) L 02/26/20 10:43 Carbon Dioxide 25 mmol/L (22-30) 02/26/20 10:43 Anion Gap 18 mmol/L 02/26/20 10:43 BUN 48 mg/dL (7-17) H 02/26/20 10:43 Creatinine 4.0 mg/dL (0.7-1.2) H 02/26/20 10:43 Estimated GFR 14 ml/min 02/26/20 10:43 BUN/Creatinine Ratio 12 % 02/26/20 10:43 Glucose 88 mg/dL (65-100) 02/26/20 10:43 Calcium 8.9 mg/dL (8.4-10.2) 02/26/20 10:43 Phosphorus 4.90 mg/dL (2.5-4.5) H 02/21/20 12:28 Total Bilirubin 0.70 mg/dL (0.1-1.2) 02/21/20 04:24 AST 15 units/L (5-40) 02/21/20 04:24 ALT 27 units/L (7-56) 02/21/20 04:24 Alkaline Phosphatase 105 units/L (35-129) 02/21/20 04:24 Troponin T 0.066 ng/mL (0.00-0.029) H D 02/15/20 07:45 Total Protein 6.9 g/dL (6.3-8.2) 02/21/20 04:24 Albumin 3.0 g/dL (3.9-5) L 02/21/20 04:24 Albumin/Globulin Ratio 0.8 % 02/21/20 04:24 Triglycerides 82 mg/dL (2-149) 02/14/20 20:06 Cholesterol 118 mg/dL (50-199) 02/14/20 20:06 LDL Cholesterol Direct 72 mg/dL (50-130) 02/14/20 20:06 HDL Cholesterol 33 mg/dL (40-59) L 02/14/20 20:06 Cholesterol/HDL Ratio 3.57 % 02/14/20 20:06 Coronavirus (PCR) Negative (Negative) 02/21/20 Unknown Hepatitis A IgM Ab -1 (NonReactive) 02/18/20 17:13 Hep Bs Antigen Non-reactive (Negative) 02/18/20 17:13 Hep B Core IgM Ab Non-reactive (NonReactive) 02/18/20 17:13 Hepatitis C Antibody Non-reactive (NonReactive) 02/18/20 17:13 [place]/IV: Voiding Method Incontinent IV Catheter Type [Left Hand] INT / Saline Lock IV Catheter Type [Right VAS Cath Internal Jugular] Active Medications - Current Medications Current Medications: Generic Name Dose Route Start Last Admin Trade Name Freq PRN Reason Stop Dose Admin Acetaminophen 650 mg 02/14/20 22:10 Tylenol PO Q4H PRN Pain MILD(1-3)/Fever >100.5/ESQUIVEL Aspirin 325 mg 02/15/20 10:00 02/26/20 11:28 Ecotrin PO 325 mg QDAY BHAVANI Administration Diltiazem HCl 90 mg 02/15/20 10:00 02/26/20 11:17 Cardizem PO 90 mg Q8HR BHAVANI Administration Epoetin Tim[place]o 20,000 unit 02/18/20 12:47 02/21/20 17:06 Procrit IV 20,000 unit KIMMIE PRN Administration hemodialysis Ferrous Sulfate 325 mg 02/20/20 10:00 02/26/20 11:17 Feosol PO 325 mg BID BHAVANI Administration Guaifenesin 200 mg 02/17/20 15:12 02/17/20 15:24 Robitussin PO 200 mg Q4H PRN Administration Cough Sodium Chloride 100 mls @ 999 mls/hr 02/25/20 11:09 Nacl 0.9% IV KIMMIE PRN Hypotension Magnesium Hydroxide 30 ml 02/14/20 22:10 Milk Of Magnesia PO Q4H PRN Constipation Midodrine 5 mg 02/24/20 09:29 02/26/20 11:16 Proamatine PO 5 mg TID@0800,1200,1600 BHAVANI Administration Morphine Sulfate 2 mg 02/14/20 22:10 Morphine IV Q5MIN PRN Chest Pain unrelieved by NTG Nitroglycerin 0.4 mg 02/14/20 22:10 Nitrostat SL Q5M PRN Chest Pain Ondansetron HCl 4 mg 02/14/20 22:10 Zofran IV Q8H PRN Nausea And Vomiting Sodium Chloride 10 ml 02/15/20 10:00 02/26/20 11:29 Sodium Chloride Flush Syringe 10 Ml IV 10 ml BID BHAVANI Administration Sodium Chloride 10 ml 02/14/20 22:10 02/24/20 22:00 Sodium Chloride Flush Syringe 10 Ml IV 10 ml PRN PRN Administration LINE FLUSH Warfarin Sodium 7.5 mg 02/20/20 17:00 02/25/20 19:37 Coumadin PO 7.5 mg 1700 BHAVANI Administration Protocol Nutrition/Malnutrition Assess - Dietary Evaluation Nutrition/Malnutrition Findings: Nutrition Notes Start: 02/15/20 14:25 Freq: Status: Active Protocol: Document 02/26/20 11:27 LM (Rec: 02/26/20 11:30 LM [email or web address]) Nutrition Notes Initial or Follow up Reassessment Current Diagnosis Hypertension,Heart Failure Other Pertinent Diagnosis afib with RVR, acute on chronic renal failure Current Diet Renal + 1L fluid restriction Labs/Tests BUN 38 K 3 Pertinent Medications Reviewed Height 5 ft 8 in Weight 147 kg [place] Body Weight (kg) 63.63 BMI 49.2 Weight Status Morbidly Obese Subjective/Other Information Pt continues not liking the food. Food preferences taken again. Pt does not want ONS. Pt has permacath for HD. Burn Absent Trauma Absent Minimum of two criteria No physical signs of malnutrition #1 Nutrition Diagnosis Increased nutrient needs ( specify in comment below) Diagnosis Progress(for reassessment Continues documentation) Is patient on ventilator? No Is Patient Ambulatory and/or Out of Bed No REE-([place]-St. Jeor-confined to bed) 2468.868 Kcal/Kg value to use for calculation 13 Approximate Energy Requirements Using 1911 kcal/Kg Calculation Used for Recommendations Kcal/kg Additional Notes Pro needs 1.25-1.5g/kg adjBW: 130-156g/day Fluid needs 1L/day Nutrition Intervention Change Diet Order: Continue current diet order Goal #1 PO intake to meet at least 75% energy and pro needs Anticipated Discharge Needs: cardiac/renal Follow-Up By: 02/28/20 Additional Comments F/U for intakes
[2020-02-26 17:31] VITALS: BP 126/88
[2020-02-26] MEDS: WARFARIN 7.5 MG TAB PO SCH (17:45)
== END 2020-02-26 18:45 | DRG 673 ==
LOC: ED 18:45 → 4A 21:31
PROVIDERS: ADMIT Internal Medicine Geriatric Medicine; ATTEND Hospitalist
PROC: B548ZZA Ultrasonography of Superior Vena Cava, Guidance (ICD-10-PCS; 2020-02-21)
PROC: 5A1D70Z Performance of Urinary Filtration, Intermittent, Less than 6 Hours Per Day (ICD-10-PCS; 2020-02-21)
PROC: B5181ZA Fluoroscopy of Superior Vena Cava using Low Osmolar Contrast, Guidance (ICD-10-PCS; 2020-02-21)
PROC: 5A1D70Z Performance of Urinary Filtration, Intermittent, Less than 6 Hours Per Day (ICD-10-PCS; 2020-02-22)
PROC: 02H633Z Insertion of Infusion Device into Right Atrium, Percutaneous Approach (ICD-10-PCS; principal; 2020-02-25)
PROC: 0JH63XZ Insertion of Tunneled Vascular Access Device into Chest Subcutaneous Tissue and Fascia, Percutaneous Approach (ICD-10-PCS; 2020-02-25)
PROC: 5A1D70Z Performance of Urinary Filtration, Intermittent, Less than 6 Hours Per Day (ICD-10-PCS; 2020-02-25)
PROC: 02HV33Z Insertion of Infusion Device into Superior Vena Cava, Percutaneous Approach (ICD-10-PCS; 2020-02-25)
PROC: B5181ZA Fluoroscopy of Superior Vena Cava using Low Osmolar Contrast, Guidance (ICD-10-PCS; 2020-02-25)
DX: N17.9 Acute kidney failure, unspecified (principal); I21.A1 Myocardial infarction type 2; I50.32 Chronic diastolic (congestive) heart failure; Z68.41 Body mass index [BMI] 40.0-44.9, adult; I13.2 Hypertensive heart and chronic kidney disease with heart failure and with stage 5 chronic kidney disease, or end stage renal disease; I42.9 Cardiomyopathy, unspecified; N18.6 End stage renal disease; R04.0 Epistaxis; I48.91 Unspecified atrial fibrillation; E66.01 Morbid (severe) obesity due to excess calories; Z20.828 Contact with and (suspected) exposure to other viral communicable diseases; I48.0 Paroxysmal atrial fibrillation; Z96.643 Presence of artificial hip joint, bilateral; D64.9 Anemia, unspecified; M19.90 Unspecified osteoarthritis, unspecified site; Z79.01 Long term (current) use of anticoagulants; Z79.899 Other long term (current) drug therapy; Z79.84 Long term (current) use of oral hypoglycemic drugs; Z79.82 Long term (current) use of aspirin; Z95.0 Presence of cardiac pacemaker
CPT/HCPCS: 36415; 36556; 36558; 71045; 77001; 80048; 80053; 80061; 80074; 84100; 84484; 85025; 85027; 85610; 93005; G0378; C1750; C1752; J0690; J0885; J1644; J2250; J2785; J3010; J7030; J7050; U0003-CS